=== PATIENT | male | born 1955 | race African-American/Black ===

== ENCOUNTER 2024-09-12 07:16 | Outpatient (CLI) | payer OTHER, SELFPAY ==
--- NOTE | 2024-09-04 13:27 | PC.NURSE ---
Pre Radiology instructions Report to the outpatient won hansen on date 09/12/24 at time _7:30 for procedure Time: 9:30 ____ YOU MAY BE MONITORED AT HOSPITAL FOR UP TO 4 HOURS AFTER YOUR PROCEDURE. A visitor will be allowed to accompany the patient into the hospital. You and your visitor will be asked to self-screen and do not enter if you have any COVID symptoms. A mask is OPTIONAL within the hospital. Patients are to have no food or drink 6 hours prior to procedure time Driving will be restricted after the procedure, you must have a person to drive you home. Labs will be drawn in preop area and once reviewed, you will be taken to radiology area for procedure. When the procedure is completed, you will be taken to outpatient where you will be monitored for several hours. You may have one visitor in this area. Other than holding anti-coagulants, patient may take other medication(s) as scheduled. Prior to your appointment date patients are instructed to hold anti-coagulants after discussing with ordering provider to stop. If unable to discontinue anti-coagulants please notify radiologist. ? No aspirin or warfarin (Coumadin) for 7 days prior to the procedure. ? No clopidogrel (Plavix), ticagrelor (Brilinta), prasugrel (Effient) or dabigatran (Pradaxa) for 5 days prior to the procedure. ? No rivaroxaban (Xarelto), apixaban (Eliquis), dipyridamole (Aggrenox or Persantine) or cilostazol (Pletal) for 2 days prior to the procedure. Medications to discontinue per physician: ____ASPIRIN 7 DAYS____ Date to take last dose: ____09/04/24 Please leave all valuables, including medications, at home the day of procedure. The hospital will not accept responsibility for valuables. Wear comfortable, loose fitting clothing.? Follow any additional instructions given to you from ordering provider. Telephone instructions given to _PATIENT and asked if any additional questions and then verbalized understanding. Patient advised to call scheduling provider office or registration scheduling [phone] if any additional questions.
[2024-09-04 13:46] VITALS: BMI 29.8
--- NOTE | ~2024-09-12 | XR_ITS ---
EXAMINATION: XR_MY2+_CR DATE: 09/12/2024 11:43 INDICATION: Spondylosis. Lumbar puncture acquired for cervical and lumbar CT myelogram. TECHNIQUE: The procedure including the risks and benefits was discussed with the patient. Risks discu ssed included spinal headache, cerebrospinal fluid leak, bleeding, and infection. The patient underst ood the risks and agreed to proceed. A timeout was performed to verify the patient's name, date of , and procedure to be performed. Prior to the procedure lumbar spine CT from 06/26/2016 was revie wed and L2-L3 levels chosen. The skin overlying the lumbar spine was prepped and draped in usual ster ile fashion. Subcutaneous 1% lidocaine was used for local anesthesia. A 22 gauge spinal needle was advanced under fluoroscopic guidance. Crosstable lateral radiograph were also obtained to assess for needle depth. Despite radiographically appropriately positioned within the central canal, no return o f CSF was obtained despite elevation of the bed to 20 degrees. A second attempt was made at the L3-L4 level with needle advancement under fluoroscopic guidance and appropriate depth confirmed with cross table lateral radiographs. With the needle tip at the anterior aspect of the central canal, the needl e was again gradually withdrawn with the head of the bed elevated and again no CSF return was obtaine d. Third and final attempt was made at the L3-L4 level angled slightly more caudally to place the nee dle tip below level of the disc space and again with appropriate needle tip position confirmed on PA fluoroscopic imaging and crosstable lateral radiograph. Once again no CSF return was obtained. In the absence of CSF return the planned contrast injection was deferred and the procedure was canceled at this point. The needle was removed and the entry sites were cleaned and dressed. There were no immed iate complications. Fluoroscopy exposure time was 2.0 minutes. A total of 6 fluoroscopic images and 7 crosstable lateral images were recorded. FINDINGS: Real-time fluoroscopy demonstrates the needle tips projecting over expected positions mid a nterior midline of the central canal at first the L2-L3 level and subsequently at the L3-L4 level. No spontaneous efflux of CSF was able to be obtained at either level and the planned contrast injection for subsequent CT myelogram was deferred. IMPRESSION: 1. Unsuccessful attempted lumbar puncture for planned subsequent CT myelogram. Despite 3 attempts, on e at the L2-L3 level and two at the L3-L4 level, each demonstrating radiographically optimal needle t ip positioning, no spontaneous efflux of CSF was able to be obtained to confirm intrathecal position of the needle tip and the planned contrast injection was deferred. It is unclear whether this is due to severe stenosis at each of these levels would consider obtaining standard lumbar spine CT which mi ght provide insight into a more suitable site for intrathecal injection. Reviewed, dictated and finalized at location A. IMPRESSION: 1. Unsuccessful attempted lumbar puncture for planned subsequent CT myelogram. Despite 3 attempts, one at the L2-L3 level and two at the L3-L4 level, each dem onstrating radiographically optimal needle tip positioning, no spontaneous effl ux of CSF was able to be obtained to confirm intrathecal position of the needle tip and the planned contrast injection was deferred. It is unclear whether thi s is due to severe stenosis at each of these levels would consider obtaining st andard lumbar spine CT which might provide insight into a more suitable site fo r intrathecal injection.
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
--- OUTSIDE RECORDS SUMMARY | 2024-09-12 07:19 | XMS_ITS | Encounter Summary ---
Author Name [facility] [place] [place] Address [address] [place] [address] Care Team Providers Care Dog Obedience Instructor Name Role Phone NANO LEONE Primary Care [...] PART A Aug 26, 1999 PART A [id number] [phone] ROSSI SERRANO RRY PATIENT MEDICARE (WNR) MEDICARE (M) PART A Aug 26, 1999 PART A [id number] ROSSI SERRANO RRChetan PATIENT Selected Encounter This section includes the information on record at [place] for the Encounter. Date/Time Encounter Type Encounter Description Reason Provider Source Oct 04, 2023 01:00 PM THERAPEUTIC EXERCISES PHYSICAL THERAPY ICD-10-CM M70.60 Trochanteric bursitis, unspecified hip BROKOE BONILLA E Encounter Template Text not used by [place] Assessments - Encounter Diagnoses This section includes the primary and secondary diagnoses documented for the Encounter. Date/Time Primary/Secondary Diagnosis Diagnosis Name Provider Source Oct 04, 2023 04:12 PM PRIMARY Trochanteric bursitis, unspecified hip MARCELO BONILLA [facility] Plan of Treatment: Future Appointments (+ 6 months) and Future Tests (+/- 45 days) The Plan of Treatment section includes future care activities for the patient from all [place] [facility]. This section includes future appointments and future orders which are active, pending or scheduled. Future Appointments This section includes appointments that were scheduled to occur 6 months from the date of the Encounter, up to a maximum of 20 appointments. The data comes from all [facility]. Appointment Date/Time Appointment Type Appointme nt Facility Name Oct 05, 2023 02:30 PM AMBULATORY - MEDICINE [facility] Nov 01, 2023 10:00 AM AMBULATORY - REHAB [facility]IC[facility] Jan 25, 2024 09:00 AM AMBULATORY - NONE [facility] Mar 11, 2024 09:30 AM AMBULATORY - MEDICINE [facility] Mar 12, 2024 09:30 AM AMBULATORY - MEDICINE [facility] Encounter Notes: All associated encounter notes This section contains the clinical notes associated to the Encounter. Date/Time Encounter Note(s) Provider Source Oct 04, 2023 12:42 PM PHYSICAL THERAPY C ONSULT: LOCAL TITLE: PT CONSULT STL STANDARD TITLE: PHYSICAL THERAPY CONSULT DATE OF NOTE: OCT 04, 2023@12:42 ENTRY DATE: OCT 04, 2023@12:43:05 AUTHOR: KADE BONILLA COSIGNER: URGENCY: STATUS: COMPLETED PHYSICAL THERAPY EVALUATION -- Order Information To Service: PT OUTPT STL From Service: GWENDOLYN GALAVIZ Requesting Provider: IVA GALAVIZ Service is to be rendered on an OUTPATIENT basis Place: Commutator Undercutter's choice Urgency: Routine Clinically Ind. Date: Sep 04, 2023 DST ID: Orderable Item: PT OUTPT STL Consult: Consult Request Provisional Diagnosis: Trochanteric Bursitis, unspecified Hip(ICD-10-CM M70.60) Start of Care: 10/04/23 Reevaluation due: 11/04/23 POC through: Visits to date: 1 No shows/cancellations: 0 Treatment time: 5341-8545 Total 55 mins. Evaluation: 20 mins. Therapeutic exercise: 35 mins. SUBJECTIVE: hip pain ongoing for >1 year. Patient is L BKA and wears prosthetic, ambulates independently with cane. Uses manual w/c as needed for long distances or when patient is unable to wear prosthetic. Bilateral hips equally painful. --Onset: insidious onset --Pain Increased With: prolonged standing, walking --Pain Decreased With: lidocaine patches, voltarin --Occupation: retired --Pain Rating (0-10) Bilateral hips Current: 0/10 Best 0/10 Worst: 8/10 OBJECTIVE: Assistive Device: cane BLE AROM grossly WFL throughout Strength: Right Left iliopsoas 4/5 4/5 Glut max 3+/5 3+/5 Glut med 4-/5 4-/5 Treatment: Initial Evaluation Therapeutic exercise: Pt was instructed in and demonstrated independence with current HEP x 1 (pt was provided with handouts): 1. L sidelying R hip clamshells with green theraband 2. R sidelying L hip abduction (without prosthesis) 3. Prone L hip extension AROM (without prosthesis) 4. single leg bridge R LE only 5. supine modified piriformis and single knee to chest stretches BLE Educations: -findings of evaluation, POC, goals -activity modification, exercise, weight reduction if overweight and methods to unload arthritic joints. ASSESSMENT: Patient presents to therapy with with c/o bilateral hip pain. Patient referred to PT by lubricating specialist. Pt would benefit from PT to address impairements in LE strength and flexibility with HEP instruction. PT also educated patient on activity modification and rest breaks with use of cold back to manage pain and soreness post-activity. Patient requests to f/u with PT in 1 month after trialing HEP and incorporating recommendations from both ortho specialist and PT. Patient verbalizes understanding of education and recommendations provided this session. Physical Therapy Diagnosis: Force production deficit --Complexity of eval: [x] Low [] Medium [] High -Complexity of eval due to: -Co-morbidities: -Personal Factors: -Examination: -Elements addressed: -Outcome measure: -Clinical Presentation: - [x] Stable and/or Uncomplicated - [] Evolving Clinical Presentation with Changing Clinical Characteristics: - [] Unstable And Unpredictable Characteristics Goals: Short term: (4 weeks) 1) Pt will demonstrate independence with current HEP x 1 2) Pt will verbalize pain at worst 10 --REHABILITATION POTENTIAL: [] POOR - Limited potential for improvement. [] GUARDED - There exists a question of the potential for improvement [] FAIR - Presents with the potential to improve in some areas while other deficits may remain unchanged. [x] GOOD - Presents with the potential to improve to a level of functional independence, though may continue to demonstrate certain minimal limitations with consistent performance of HEP. [] EXCELLENT - Presents with the potential to fully recover with no residual deficits. Plan: Continue skilled PT 1x every 3-4 weeks for education, therapeutic exercise and activity, neuro-muscular re-education, and modalities as needed. /dayan/ KADE BONILLA PHYSICAL THERAPIST Signed: 10/04/2023 16:12 KADE BONILLA [facility]
--- OUTSIDE RECORDS SUMMARY | 2024-09-12 07:20 | XMS_ITS | Clinical Summary ---
Author Organization [facility] Address [address] [place] [address] Care Team Providers Care Geoscience Specialist Name Role Phone Unavailable Primary Care Provider Unavailabl e Source Comments [facility],non-owned Affiliates and Associated Physician Practices is amultiple site organization consisting of ambulatory clinics and hospital sitesin [place], [place], [place] and [place]. This disclosure is being madepursuant to the Care Everywhere program and may not contain all information available regarding this patient. Last updated 17.[facility] Medications * Be aware that medications may not be up to date on this document. Alwaysverify current medications with the patient. raNITIdine (ZANTAC) 150 MG tablet Take 150 mg by mouth BID. 07/29/2016 Active aspirin (ASPIRIN) 81 MG chew tablet Take 81 mg by mouth DAILY. 07/29/2016 Active Social History Tobacco Use Types Packs/Day Years Used Date Smoking Tobacco: Every Day Alcohol Use Standard Drinks/Week Comments No 0 (1 standard drink = 0.6 oz pur e alcohol) Sex and Gender Information Value Date Recorded Sex Assigned at Not on file Legal Sex Male 5:37 PM [employer] Gender Identity Not on file Sexual Orientation Not on file Last Filed Vital Signs Vital Sign Reading Time Taken Comments Blood Pressure 130/111 07/29/2016 6:26 PM CDT Pulse 107 07/29/2016 6:26 PM CDT Temperature 37.2 C (98.9 F) 07/29/2016 6:26 PM CDT Respiratory Rate 20 07/29/2016 6:26 PM CDT Oxygen Saturation 100% 07/29/2016 6:26 PM CDT Inhaled Oxygen Concentration - - Weight 94.8 kg (209 lb) 07/29/2016 6:26 PM CDT Height 180.3 cm (5' 11) 07/29/2016 6:26 PM CDT Body Mass Index 29.15 07/29/2016 6:26 PM CDT Plan of Treatment Health Maintenance Due Date Last Done Comments COLOGUARD (AGES 45-75) - COL ON CA SCREENING 1956 COLON MONITORING 1956 COLONOSCOPY - COLON CA SCREENING 1956 CT COLONOGRAPHY - COLON CA SCREENING 1956 Colorectal Cancer Screening 1956 FIT - COLON CA SCREENING 1956 FLEX SIG - COLON CA SCREENING 1956 LIPID TESTING 1956 HEPATITIS C SCREENING 08/08/1974 DTAP/TDAP/TD VACCINES (1 - Tdap) 08/13/1975 PNEUMOCOCCAL VACCINE 50+ (1 of 1 - PCV) 2006 ZOSTER VACCINE (1 of 2) 2006 AAA SCREENING 2021 COVID-19 VACCINE (1 - 2023-2 5 season) 2023 DEPRESSION SCREENING 03/27/2024 INFLUENZA VACCINE (Season Ended) 2024 Respiratory Syncytial Virus (RSV) Vaccine Pt: or over 60 yrs (1 - 1-dose 75+ series) 08/13/2031 HEPATITIS B VACCINE Aged Out No longe r eligible based on patient's age to complete this topic HIB VACCINE Aged Out No longer eligi ble based on patient's age to complete this topic HPV VACCINE Aged Out No longer eligi ble based on patient's age to complete this topic MENINGOCOCCAL (Group B) VACC INE SHARED DECISION-MAKING Aged Out No longer eligibl e based on patient's age to complete this topic MENINGOCOCCAL GROUPS A/C/Y/W VACCINE Aged Out No longer eligible b ased on patient's age to complete this topic
--- OUTSIDE RECORDS SUMMARY | 2024-09-12 07:20 | XMS_ITS ---
Author Name [facility] [place] Organization [facility] [place] Address [address] [place] [address] Care Team Providers Care Booking Officer Name Role Phone NANO LEONE Primary Care [...] PART A Aug 26, 1999 PART A [id number] ZACHROSSI GAGE PATIENT MEDICARE (WNR) MEDICARE (M) PART A Aug 26, 1999 PART A [id number] ROSSI SERRANO RRSanto PATIENT Selected Encounter This section includes the information on record at MD for the Encounter. Date/Time Encounter Type Encounter Description Reason Provider Source May 03, 2024 01:30 PM OFFICE O/P EST MOD 30 MIN PRIMARY CARE/MEDICINE ICD-10-CM I10 Essential (primary) hypertension LEONE,ARMID A A [facility] Encounter Template Text not used by MD Assessments - Encounter Diagnoses This section includes the primary and secondary diagnoses documented for the Encounter. Date/Time Primary/Secondary Diagnosis Diagnosis Name Provider Source May 03, 2024 04:24 PM PRIMARY Essential (primary) hypertension LEONE,NANO A [facility] May 03, 2024 04:24 PM SECONDARY Encounter for immunization SUNITA HUMMEL [facility] May 03, 2024 04:24 PM SECONDARY Iron deficiency anemia, unspecified LEONENANO Teresa [facility] May 03, 2024 04:24 PM SECONDARY Type 2 diabetes mellitus without complications SULEMANANO A [facility] Plan of Treatment: Future Appointments (+ 6 months) and Future Tests (+/- 45 days) The Plan of Treatment section includes future care activities for the patient [facility] This section includes future appointments and future orders which are active, pending or scheduled. Future Appointments This section includes appointments that were scheduled to occur 6 months from the date of the Encounter, up to a maximum of 20 appointments. The data comes from all [facility]. Appointment Date/Time Appointment Type Appointme nt Facility Name May 15, 2024 11:00 AM AMBULATORY - MEDICINE [facility] May 15, 2024 11:30 AM AMBULATORY - MEDICINE [facility] May 20, 2024 02:00 PM AMBULATORY - MEDICINE [facility] May 23, 2024 02:00 PM AMBULATORY - MEDICINE [facility] Jun 13, 2024 01:15 PM AMBULATORY - MEDICINE [facility] Jun 17, 2024 12:00 PM AMBULATORY - NONE [facility] Jun 21, 2024 11:00 AM AMBULATORY - MEDICINE [facility] Jun 21, 2024 02:00 PM AMBULATORY - MEDICINE [facility] Jun 28, 2024 03:30 PM AMBULATORY - NONE [facility] Jul 11, 2024 01:30 PM AMBULATORY - MEDICINE [facility] August 01, 2024 01:15 PM AMBULATORY - SURGERY [facility] Sep 05, 2024 01:00 PM AMBULATORY - REHAB MEDICIN E [facility] Sep 05, 2024 02:30 PM AMBULATORY - NONE [facility] Sep 09, 2024 01:00 PM AMBULATORY - REHAB MEDICIN E [facility] Sep 11, 2024 11:00 AM AMBULATORY - REHAB MEDICIN E [facility] Sep 12, 2024 07:30 AM AMBULATORY - NONE [facility] Sep 12, 2024 07:40 AM AMBULATORY - NONE [facility] Oct 11, 2024 03:30 PM AMBULATORY - REHAB MEDICIN E [facility] Oct 18, 2024 02:00 PM AMBULATORY - MEDICINE [facility] Oct 25, 2024 03:00 PM [facility] Active, Pending, and Scheduled Orders This section includes a listing of several types of active, pending, and scheduled orders, including clinic medications orders, diagnostic test orders, procedure orders and consult orders; where the start date of the order is 45 days before the date of the Encounter or 45 days after the date of theEncounter. The data comes from all MD treatment facilities. Test Date/Time Test Type Test Details Facility Name May 03, 2024 12:00 AM Laboratory - Chemi ganga Order OCCULT BLOOD FIT X1 SCREEN STOOL FECES SP [facility] Lab Results: +/- 30 days of the encounter This section includes the Chemistry and Hematology Lab Results on record with MD for the patient. Radiology Reports and Pathology Reports are provided separately, in subsequent sections. Lab Results This section contains the Chemistry/Hematology Results that were resulted 30 days before or 30 daysafter the date of the Encounter. Date/Time Source Result Type Result - Unit Interpretation Reference Range Specimen Type Comment May 21, 2024 06:01 PM [facility] FERRITIN SERUM Specimen Type: SERUM Comment: FE Sat Unable to be calculated Ordering Provider: RAHEL MERINO Report Released Date/Time: May 15, 2024 02:28 PM Reporting Lab: [facility] [address] [facility] [address] Performing Lab: [facility] [address] [facility] [address] FERRITIN 1052.99 ng/mL H 22-275 May 21, 2024 06:01 PM [facility] IRON/TIBC PROFILE SERUM Specimen Type: SERUM Comment: FE Sat Unable to be calculated Ordering Provider: RAHEL MERINO Report Released Date/Time: May 15, 2024 02:28 PM Reporting Lab: [facility] [address] [place] [id number] Performing Lab: [address] [address] TIBC 309 ug/dL 250-450 TRANSFERRIN 247 mg/dL 163-344 IRON SATURATION 45 20-50 IRON 139 ug/dL 65-175 May 21, 2024 06:01 PM [facility] CBC BLOOD Specimen Type: BLOOD No comment entered. Ordering Provider: RAHEL MERINO Report Released Date/Time: May 15, 2024 02:28 PM Reporting Lab: [address] [address] Performing Lab: [address] [address] WBC 7.7 10*3/uL 3.6-11.2 RBC 4.18 10*6/uL 4.10-5.70 HGB 8.9 g/dL L 13.1-16.8 HCT 31.9 L 38.2-48.4 MCV 76.3 fL L 80.0-100.0 MCH 21.3 pg L 27.0-34.0 MCHC 27.9 g/dL L 33.0-36.0 PLT 403 10*3/uL H 150-400 MPV 10.1 fL 7.5-11.2 RDW 21.2 H 11.8-15.1 ANISOCYTOSIS 2+ POIKILOCYTOSIS 1+ MACROCYTOSIS 1+ POLYCHROMASIA 1+ HYPOCHROMIA 1+ SCHISTOCYTES 1+ PAPPENHEIMER BODIES 0 LYMPHOCYTES, AUTO % 17 MONOCYTES, AUTO % 11 NEUTROPHILS, AUTO % 70 EOSINOPHILS, AUTO % 1 BASOPHILS, AUTO % 0 LYMPHOCYTES, ABSOLUTE 1.31 10*3/uL 0.77- 4.50 MONOCYTES, ABSOLUTE 0.82 10*3/uL H 0.19-0. 80 NEUTROPHILS, ABSOLUTE 5.40 10*3/uL 2.10- 8.00 EOSINOPHILS, ABSOLUTE 0.09 10*3/uL 0.00- 0.60 BASOPHILS, ABSOLUTE 0.03 10*3/uL 0.00-0. 20 OVALOCYTES 1+ TEARDROPS 1+ PLT EST-CV ADEQUATE ADEQUATE SCRNPERF YES May 21, 2024 12:08 PM [facility] H.PYLORI AG (STL) FECES Specimen Type: FECES No comment entered. Ordering Provider: ANASTASIA SLOAN Report Released Date/Time: May 20, 2024 02:26 PM Reporting Lab: [facility] [address] [facility] [address] Performing Lab: [address] [address] H.PYLORI AG (STL) NEGATIVE NEGATIVE May 15, 2024 11:18 AM [facility] FERRITIN SERUM Specimen Type: SERUM No comment entered. Ordering Provider: RAHEL MERINO Report Released Date/Time: May 15, 2024 08:31 AM Reporting Lab: [place] [address] [facility] [address] Performing Lab: [address] [address] FERRITIN 9.59 ng/mL L 22-275 May 15, 2024 11:18 AM [facility] IRON/TIBC PROFILE SERUM Specimen Type: SERUM No comment entered. Ordering Provider: RAHEL MERINO Report Released Date/Time: May 15, 2024 08:31 AM Reporting Lab: [address] [address] Performing Lab: [address] [address] TIBC 368 ug/dL 250-450 TRANSFERRIN 294 mg/dL 163-344 IRON SATURATION 6 L 20-50 IRON 22 ug/dL L 65-175 May 15, 2024 11:18 AM [facility] CBC BLOOD Specimen Type: BLOOD No comment entered. Ordering Provider: RAHEL MERINO Report Released Date/Time: May 15, 2024 08:31 AM Reporting Lab: [facility] [address] [facility] [address] Performing Lab: [facility] [address] [place] [phone] WBC 8.4 10*3/uL 3.6-11.2 RBC 4.12 10*6/uL 4.10-5.70 HGB 8.6 g/dL L 13.1-16.8 HCT 30.7 L 38.2-48.4 MCV 74.5 fL L 80.0-100.0 MCH 20.9 pg L 27.0-34.0 MCHC 28.0 g/dL L 33.0-36.0 PLT 424 10*3/uL H 150-400 MPV 9.8 fL 7.5-11.2 RDW 18.5 H 11.8-15.1 NEUTROPHILS 72.2 MONOCYTES 4.3 EOSINOPHILS 0.9 BASOPHILS 0.9 ANISOCYTOSIS 1+ POIKILOCYTOSIS 1+ POLYCHROMASIA 1+ SCHISTOCYTES 1+ PAPPENHEIMER BODIES 0 LYMPHOCYTES 19.1 ATYPICAL LYMPHOCYTES 2.6 OVALOCYTES 1+ PLT EST-CV INCREASED ADEQUATE BASO#-MDIFF 0.08 10*3/uL 0.01-0.20 EO#-MDIFF 0.08 10*3/uL 0.00-0.60 MONO#-MDIFF 0.36 10*3/uL 0.19-0.80 LYMPH#-MDIFF 1.82 10*3/uL 0.77-4.50 NEUT#-MDIFF 6.06 10*3/uL 2.10-8.00 May 03, 2024 01:36 PM [facility] GLUCOSE,BLOOD-poct (STL) BLOOD Specimen Type: BLOOD Comment: Test Performed by: [id number] Meter #: [id number] Ordering Provider: NANO LEONE Report Released Date/Time: May 03, 2024 03:43 PM Reporting Lab: [place] [id number] [facility] [address] Performing Lab: [address] [address] GLUCOSE,BLOOD-poct (STL) 97 mg/dL 72-99 Vital Signs: All taken on the encounter date This section contains inpatient and outpatient Vital Signs collected on the date of the Encounter. Date/Time Temperature Pulse Blood Pressure Respiratory Rate SP02 Pain Height Weight Body Mass Index Source May 03, 2024 01:33 PM 98.2 86 137/68 18 95 8 219 31 [facility] Immunizations: All administered on the encounter date This section contains immunizations associated to the Encounter. Immunization Series Date Issued Administered By Site Reaction Lot Number CVX Code Drug Legal Department Manager Comment(s) Source COVID-19 (Weavly), MRNA, LNP-S, PF, RODOLFO-SUCROSE, 30 MCG/0.3 ML (AGES 12+ YEARS) May 03, 2024 ARAVIND HUMMEL S RIGHT DELTO ID [id number] [employer], INC ADMINISTERE D AT [facility] INFLUENZA, HIGH-DOSE, TRIVALENT, PF May 03, 2024 ARAVIND HUMMEL RIGHT DELTO ID [id number] SANOFI PASTEUR ADMINISTERE D AT [facility] Social History: Smoking Status (Most current) and Tobacco Use (All prior to encounter date) This section includes the most current, and the historical, smoking and tobacco- related health factors from the MD facility where the Encounter took place. Current Smoking Status This section includes the most current smoking, or tobacco-related health factor, from the MD facility where the Encounter took place. Date/Time Current Smoking Status Comment Cari itsanto May 03, 2024 01:30 PM VA-TOBACCO USE FOR MYCHAL CIGARETTES [facility] Tobacco Use History This section includes a history of the smoking, or tobacco-related health factors, that were collected on or before the date of the Encounter. The data comes from the MD facility where the Encounter took place. Date/Time Smoking Status/Tobacco Use Comment F acility May 03, 2024 01:30 PM VA-TOBACCO USE FOR MYCHAL CIGARETTES [facility] Jan 05, 2023 02:30 PM VA-TOBACCO FORMER USER [facility] Jan 05, 2023 02:30 PM VA-TOBACCO QUIT 15 YRS OR MORE [facility] Nov 03, 2021 09:00 AM VA-TOBACCO FORMER USER [facility] Nov 03, 2021 09:00 AM VA-TOBACCO QUIT 15 YRS OR MORE [facility] Oct 19, 2020 11:30 AM VA-TOBACCO FORMER USER [facility] Oct 19, 2020 11:30 AM VA-TOBACCO QUIT 15 YRS OR MORE [facility] Jan 09, 2019 11:37 AM VA-TOBACCO FORMER USER [facility] Jan 09, 2019 11:37 AM VA-TOBACCO QUIT 5 TO < 15 YRS [facility] Jan 10, 2017 09:53 AM QUIT TOBACCO >12 M O & <7 YRS AGO [facility] Sep 28, 2016 08:46 AM QUIT TOBACCO >12 M O & <7 YRS AGO [facility] Aug 29, 2016 09:07 AM QUIT TOBACCO >12 M O & <7 YRS AGO [facility] Nov 19, 2015 10:54 AM QUIT TOBACCO >12 M O & <7 YRS AGO [facility] Nov 24, 2014 02:40 PM QUIT TOBACCO >12 M O & <7 YRS AGO [facility] Nov 14, 2013 10:11 AM QUIT TOBACCO >7 YEARS AGO [facility] Encounter Notes: All associated encounter notes This section contains the clinical notes associated to the Encounter. Date/Time Encounter Note(s) Provider Source May 03, 2024 01:45 PM PRIMARY CARE NOTE: LOCAL TITLE: PRIMARY CARE PROVIDER ESTABLISHED VISIT [facility] STANDARD TITLE: PRIMARY CARE NOTE DATE OF NOTE: MAY 03, 2024@13:45 ENTRY DATE: MAY 03, 2024@13:45:22 AUTHOR: NANO LEONE COSIGNER: URGENCY: STATUS: COMPLETED ESTABLISHED PATIENT [id number]: REASON FOR VISIT/CHIEF COMPLAINT: f/u DM, HTN, HLD, hx of SBO, adrenal adenoma, gerd, insomnia, LBP and neck pain and hx left BKA, ED, hip pain HPI:reports bilateral shoulder pain worse when he lays down on that side. LBP and right hip pain,worse with proloned standing and walking, better with rest. has altered gait due to LLE prosthetic limb, denies loss of bowel and bladder control. will try PT for core strengthening and switch celebrex to etodolac. Reports well controlled DM Denies any hypoglycemic episodes. Has numbness of foot, denies any open areas. denies cp, sob, palpitations denies BP issues. denies falls. will try low dose gabapentin TID prn . SOURCE(S) OF HISTORY: Patient PAST MEDICAL HISTORY: 1) Diabetes mellitus (SCT 20162256) - Diabetes mellitus without mention of complica 2) Benign essential hypertension (SCT 5486029) - Benign essential hypertension (ICD 3) Hyperlipidemia (SCT 86565181) - Other and unspecified hyperlipidemia (ICD-9- CM 2 comment: and repair of incisional hernia. 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 Extensive lysis of adhesions greater th 14) Hypokalemia 15) Adenoma comment: benign adrenal adenoma ( saw endo and DC to PCP) 16) Gastroesophageal reflux disease 17) Insomnia 18) Acquired pes planus 19) Erectile Dysfunction (SCT [id number]) 20) Exposure to potentially hazardous substance 21) Trochanteric bursitis of right hip 22) Trochanteric bursitis of left hip 23) Obesity FAMILY HISTORY: No new updates. SOCIAL HISTORY: NICOTINE: Nicotine User: No ILLICIT DRUGS: No ETOH: denies ALLERGIES: Patient has answered NKA ALLERGY REVIEW: Allergy list reviewed and remains current. MEDICATION RECONCILIATION: I have reviewed the patient's medication list with the patient and/or his/her care-press operator meat. Handwritten corrections, additions and/or deletions were made to the list. Corrected Outpatient Medication List was provided to the patient/caregiver. Active Outpatient Medications (including Supplies): Active Outpatient Medications Status 1) AMLODIPINE BESYLATE 10MG TAB TAKE ONE TABLET BY MOUTH ONCE A ACTIVE (S) DAY FOR HEART/BLOOD PRESSURE Indication: FOR HIGH BLOOD PRESSURE 2) ASPIRIN 81MG EC TAB TAKE ONE TABLET BY MOUTH ONCE A DAY ACTIVE (S) TAKE WITH FOOD. Indication: FOR CARDIOVASCULAR DISEASE 3) CHOLECALCIF 50MCG (D3-2,000UNIT) TAB TAKE ONE TABLET BY ACTIVE (S) MOUTH ONCE A DAY FOR VITAMIN D DEFICIENCY. 4) DICLOFENAC NA 1% TOP GEL APPLY 4 GM TO AFFECTED AREA(S) FOUR ACTIVE TIMES A DAY DO NOT EXCEED MORE THAN 16 GRAMS DAILY TO ANY LOWER EXTREMITY JOINT. NOT MORE THAN 8 GRAMS DAILY TO ANY UPPER EXTREMITY JOINT. MAX 32GM/DAY OVER ALL JOINTS. (MEASURE DOSE WITH RULER ATTACHED INSIDE BOX) Indication: FOR PAIN 5) HYDROCHLOROTHIAZIDE 25MG TAB TAKE ONE TABLET BY MOUTH ONCE A ACTIVE DAY Indication: FOR HIGH BLOOD PRESSURE 6) METFORMIN HCL 1000MG TAB TAKE ONE-HALF TABLET BY MOUTH TWICE ACTIVE A DAY WITH MEALS FOR BLOOD SUGAR CONTROL. TAKE WITH FOOD. AVOID ALCOHOL. DISCONTINUE BEFORE GETTING XRAY DYE. 7) METHOCARBAMOL 750MG TAB TAKE 1-2 TABLETS BY MOUTH FOUR TIMES ACTIVE A DAY NEEDED FOR MUSCLE RELAXANT 8) PANTOPRAZOLE NA 40MG EC TAB TAKE ONE TABLET BY MOUTH TWICE A ACTIVE (S) DAY TAKE 30 MINUTES BEFORE MEAL(S) Indication: FOR GASTROESOPHAGEAL REFLUX DISEASE 9) POTASSIUM CL 20MEQ SA TAB (DISPERSIBLE) TAKE ONE TABLET BY ACTIVE MOUTH TWICE A DAY FOR POTASSIUM SUPPLEMENTATION TAKE WITH FOOD 10) TADALAFIL 10MG TAB TAKE ONE TABLET BY MOUTH EVERY WEEK ACTIVE (S) NEEDED (TAKE 30 MINUTES PRIOR TO SEXUAL ACTIVITY) - LIMIT 6 DOSES PER 30 DAYS Indication: FOR ERECTILE DYSFUNCTION 11) TRAZODONE HCL 100MG TAB TAKE THREE TABLETS BY MOUTH AT ACTIVE BEDTIME Indication: FOR INSOMNIA REVIEW OF SYSTEMS: General: Normal No Fevers, Chills, Weight Loss, Weight Gain, Recent Illness. Ears, Nose, Mouth, Throat: Normal No new loss of hearing or tinnitus, no Dental issue, Difficulty swallowing, Vertigo. Eye: Normal No Trauma, Cataracts, Glaucoma, Blurred vision Cardiovascular: Normal No Chest pain, Dizziness, Palpitations. Respiratory: Normal No Cough, SOB, Hemoptysis, Epistaxis, Influenza symptoms, +PDD. PHYSICAL EXAMINATION: General appearance: VITALS (most recent, as listed in the electronic record): B/P: 137/68 (05/03/2024 13:33) Pulse: 86 (05/03/2024 13:33) Temperature: 98.2 F [36.8 C] (05/03/2024 13:33) Weight: 219 lb [99.34 kg] (05/03/2024 13:33) Height: 71 in [180.3 cm] (10/05/2023 14:26) BMI: 30.6 Pain: 8 (05/03/2024 13:33) (0-10 scale) General: pleasant, cooperative, well-developed, obese appropriately dressed and groomed ; in no acute distress. Ears, Nose, Mouth, Throat:NC/AT , MMm , neg spurling Eye:PERRL Cardiovascular:RRR, No m/r/g or clicks. Respiratory:Clear to auscultation bilaterally. No accessory muscle use. Respirations even and non-labored ABD/GI:soft, non-tender. BS + x 4. /IMMUNOCHEMIST: Deferred Lymph: No lymphadenopathy Extremities:LLE prosthetic limb, bilateral shoulders +scarf and empty can test, [ain with overhead ROM Psych:Affect appropriate. Neuro: Oriented x3. Gait steady with normal stride. Hematology: Color good. No pallor. No ecchymosis or petechiae. Skin:No visualized abnormalities. DATA REVIEW: SLT - Lab Tests Selected Collection DT Specimen Test Name Result Units Ref Range 03/13/2024 12:55 BLOOD HGA1C 6.3 H % 4.0 - 6.0 07/26/2023 14:08 BLOOD HGA1C 6.2 H % 4.0 - 6.0 07/06/2022 10:39 BLOOD HGA1C 6.3 H % 4.0 - 6.0 = TRIGLYCERIDE 91 mg/dL 03/13/2024 12:55 CHOLESTEROL 203 H mg/dL 03/13/2024 12:55 HDL(New) 44 mg/dL 03/13/2024 12:55 CALCULATED LDL 141 mg/dL 03/13/2024 12:55 = SODIUM 140 mEq/L 03/13/2024 12:55 POTASSIUM 4.8 mEq/L 03/13/2024 12:55 CHLORIDE 105 mEq/L 03/13/2024 12:55 UREA NITROGEN 15.0 mg/dL 03/13/2024 12:55 CREATININE 0.98 mg/dL 03/13/2024 12:55 CALCIUM 9.5 mg/dL 03/13/2024 12:55 PROTEIN 7.8 g/dL 03/13/2024 12:55 ALBUMIN 4.4 g/dL 03/13/2024 12:55 ALKALINE PHOSPHATASE 108 U/L 03/13/2024 12:55 ALT/SGPT 8 U/L 03/13/2024 12:55 AST/SGOT 17 U/L 03/13/2024 12:55 TOTAL BILIRUBIN 0.3 mg/dL 03/13/2024 12:55 CARBON DIOXIDE 25 mEq/L 03/13/2024 12:55 GLUCOSE 91 mg/dL 03/13/2024 12:55 EGFR (CKD-EPI 2020) 84.5 03/13/2024 12:55 = WBC 6.0 10*3/uL 03/13/2024 12:55 RBC 4.33 10*6/uL 03/13/2024 12:55 HGB 9.1 L g/dL 03/13/2024 12:55 HCT 32.0 L % 03/13/2024 12:55 MCV 73.9 L fL 03/13/2024 12:55 MCH 21.0 L pg 03/13/2024 12:55 MCHC 28.4 L g/dL 03/13/2024 12:55 RDW 18.7 H % 03/13/2024 12:55 PLT 351 10*3/uL 03/13/2024 12:55 MPV 9.6 fL 03/13/2024 12:55 NEUTROPHILS, AUTO % 69 % 03/13/2024 12:55 LYMPHOCYTES, AUTO % 19 % 03/13/2024 12:55 MONOCYTES, AUTO % 11 % 03/13/2024 12:55 EOSINOPHILS, AUTO % 1 % 03/13/2024 12:55 BASOPHILS, AUTO % 0 % 03/13/2024 12:55 NEUTROPHILS, ABSOLUTE 4.11 10*3/uL 03/13/2024 12:55 LYMPHOCYTES, ABSOLUTE 1.11 10*3/uL 03/13/2024 12:55 MONOCYTES, ABSOLUTE 0.66 10*3/uL 03/13/2024 12:55 EOSINOPHILS, ABSOLUTE 0.07 10*3/uL 03/13/2024 12:55 BASOPHILS, ABSOLUTE 0.02 10*3/uL 03/13/2024 12:55 = PROST. SPECIFIC AG.(PB-STL) 3.320 ng/mL 07/26/2023 14:08 PROST. SPECIFIC AG.(PB-STL) 1.996 ng/mL 07/06/2022 10:39 PROST. SPECIFIC AG.(PB-STL) 1.609 ng/mL 08/09/2021 08:55 PROST. SPECIFIC AG.(PB-STL) 1.144 ng/mL 07/04/2020 11:06 PROST. SPECIFIC AG.(PB-STL) 0.726 ng/mL 08/01/2019 10:28 = TSH 0.653 uIU/mL 03/13/2024 12:55 = URIC ACID: Collection DT Specimen Test Name Result Units Ref Range 03/13/2024 12:55 PLASMA URIC ACID 6.6 mg/dL 3.5 - 7.2 Comment: No hemolysis noted. = B12 267 pg/mL 03/13/2024 12:55 = VITAMIN D, 25-HYDROXY 59.0 ng/mL 03/13/2024 12:55 = INR: No INR EO data found = No URINALYSIS EO data found = Urine Microalbumin: CREATuF: 141.5 (07/25/ 14:08) M/CREAT: 5 (07/26/23 14:08) MICRAL: 7.3 (07/26/23 14:08) = CREATININE URINE/OTHERS 141.5 mg/dL 07/26/2023 14:08 = Dilantin: ____ = Digoxin: No data available for: DIGOXIN = Chest x-ray: No data available for: CHEST 2 VIEWS PA&LAT = EKG: No data available for: EKG CONSULT STL EKG CONSULTS PB EKG RESULTS MA Result: Acceptable Follow-up Action: Data results reviewed with patient and/or caregiver. ASSESSMENT/PLAN: anger/irritability- recommend [facility] visit. 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 recommend PT, declined by pt. switch celebrex to etodola with food, monitor anemia- cont otc fe supplement. noted progressive decrease of H/H. heme consult and GI consult. overdue for scope cervicalgia with radiculopathy, better, cont stretching exercises. switch celebrex to etodolac with food. try low dose gabapebtib for pain. cont otc apap prn for pain.recommend PT, deferred by pt, imaging ordered. monitor DM stable cpm HTN controlled. cpm RETURN TO CLINIC:6-9 mo Return to Clinic order placed SUMMARY STATEMENT: Plan of care has been discussed with including expected therapeutic benefits and potential side effects of prescribed medication and treatments. verbalizes understanding and is in agreement with the plan of care. Patient was instructed to keep all scheduled appointments and contact cnp for any additional problems. PREVENTION & SCREENING: ALCOHOL: Clinical Reminder not due now or within a month BLOOD PRESSURE: Clinical Reminder not due now or within a month HEMOGLOBIN A1C: Clinical Reminder not due now or within a month /es/ NANO LEONE MD Signed: 05/14/2024 10:36 NANO LEONE [facility] May 03, 2024 01:37 PM NURSING NOTE: LOCAL TITLE: V15 PACT FACE TO FACE NOTE STL STANDARD TITLE: NURSING NOTE DATE OF NOTE: MAY 03, 2024@13:37 ENTRY DATE: MAY 03, 2024@13:37:17 AUTHOR: YELENA HUMMEL COSIGNER: URGENCY: STATUS: COMPLETED Provider Visit: Patient Identifiers : Full Name Date of Reason for visit: Established Follow-Up Mode of Arrival: Ambulatory Allergy Review: Patient has answered NKA Allergy list reviewed and remains current. Recent Vital Signs: Temperature: 98.2 F [36.8 C] (05/03/2024 13:33) Pulse: 86 (05/03/2024 13:33) Respiration: 18 (05/03/2024 13:33) B/P: 137/68 (05/03/2024 13:33) Pain: 8 (05/03/2024 13:33) Wt: 219 lb [99.34 kg] (05/03/2024 13:33) Ht: 71 in [180.3 cm] (10/05/2023 14:26) BMI: 30.6 POX: 95% (05/03/2024 13:33) Blood sugar glucometer readin PERSONAL HEALTH INVENTORY Notes: No data available for PHI note titles PERSONAL HEALTH INVENTORY - MAP: No data available for PHI MAP What matters most to you in your life right now? Mcgregor's Response: ME Would you like to discuss any personal problem, family problem, alcohol use, drug use, or a mental or emotional illness? No [facility] ([facility]), please select appointment type: Face to face: No-please briefly review benefits and direct Mcgregor to [facility] to get more information and register if interested. Contact provided Primary Care phone number and encouraged to call if any questions or concerns. Review that after hours nurse line [phone] and emergency room are available 17/10 for patient use. Contact verbalized good understanding. Sexual Orientation - CP,L,N,P,PH,PS,S,U: The patient thinks of their sexual orientation as: Straight or Heterosexual COVID-19 Immunization - L,N,P,PH,U: Additional Information: CDC Interim Clinical Considerations for Use of COVID-19 Vaccines in [facility] COVID-19 Vaccine SharePoint Pfizer Monovalent (Comirnaty) Administered: COVID-19 (PFIZER), MRNA, LNP-S, PF, RODOLFO-SUCROSE, 30 MCG/0.3 ML (AGES 12+ YEARS) Date Administered: May 03, 2024 13:30 Legal Department Manager: [employer] Lot: [id number] Exp Date: Jul 01, 2024 [facility]: [id number] Admin Route/Site: INTRAMUSCULAR/RIGHT DELTOID Dosage: 0.3mL Vaccine Information Statement(s): COVID-19 MRNA VACCINE (12+ YRS) VIS Jan 11, 2024 (VIET[place]ESE) Order By: Policy Administered By: Yelena Hummel Vaccine administered without complications. Alcohol Use Screen (AUDIT-C) - V: Alcohol Screen: SCREEN FOR ALCOHOL (AUDIT-C) An alcohol screening test (AUDIT-C) was negative (score=0). 1. How often did you have a drink containing alcohol in the past year? Consider a drink to be a 12 ounce can or bottle of regular beer, 8 ounces of malt liquor, a 5 ounce glass of table wine, or a 1.5 ounce shot of liquor (like scotch, gin, or vodka). Never 2. How many drinks containing alcohol did you have on a typical day when you were drinking in the past year? Response not required due to responses to other questions. 3. How often did you have six or more drinks on one occasion in the past year? Response not required due to responses to other questions. Depression Screening - V: Perform PHQ-2 A PHQ-2 screen was performed. The score was 4 which is a positive screen for depression. Over the past two weeks, how often have you been bothered by the following problems? 1. Little interest or pleasure in doing things More than half the days 2. Feeling down, depressed, or hopeless More than half the days Licensed Independent Provider notified of positive screen and need for follow-up. Name of provider notified: DR LEONE Homelessness/Food Insecurity Screen - DI,L,N,P,PH,PS,S,U: In the past 2 months, have you been living in stable housing that you own, rent, or stay in as part of a household? Yes - Living in stable housing. Are you worried or concerned that in the next 2 months you may NOT have stable housing that you own, rent, or stay in as part of a household? No - Not worried about housing near future The reports the following: Within the past 12 months, you worried whether your food would run out before you got money to buy more. Never true Within the past 12 months, the food you bought just didn't last and you didn't have money to get more. Never true Influenza Immunization - L,N,P,PH,U: Influenza, High-Dose, Trivalent, Preservative Free (Fluzone-Syringe) Administered: INFLUENZA, HIGH-DOSE, TRIVALENT, PF Date Administered: May 03, 2024 13:30 Legal Department Manager: SANOFI PA[employer] Lot: [id number] Exp Date: Sep 23, 2024 [facility]: [id number] Admin Route/Site: INTRAMUSCULAR/RIGHT DELTOID Dosage: 0.5mL Vaccine Information Statement(s): INFLUENZA(FLU) VACC(INACTIVATED OR RECOMBINANT)VIS Oct 30, 2020 (VIET[place]ESE) Order By: Policy Administered By: Yelena Hummel The Influenza Vaccine Information Statement (VIS) was reviewed with the patient/caregiver which lists the benefits and risks of the vaccine and the risks of not receiving the Influenza vaccine. The patient/caregiver denied any prior severe reaction to this vaccine or its components or a severe allergic reaction, such as anaphylaxis, to any vaccine or any injectable therapy. The patient/caregiver gave verbal consent to receive the vaccine. Tobacco Use Screening - AT,DE,L,M,N,P,PH,PS,RT,S,U: The patient is a former cigarette smoker. The patient has never used other types of tobacco. Learning Assessment: - * This patient's learning ABILITIES, BARRIERS to learning, CULTURAL and CATHOLIC beliefs, and learning PREFERENCES were assessed. Following are findings of note: Patient reads well. LANGUAGE Patient reports that Greenlandic is preferred language for healthcare. 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 Patient reports learning preference is attending one-to-one or group demonstrations. Patient reports learning preference is looking at pictures or viewing videos. Pneumococcal Conjugate Vaccine (PCV15/PCV20) - L,N,P,PH,U: Refuses PCV vaccine Immunization: PNEUMOCOCCAL CONJUGATE, UNSPECIFIED FORMULATION Refusal Reason: PATIENT DECISION Patient refuses all immunization(s) in the PneumoPCV group Date Documented: 05/03/24 13:47 /dayan/ YELENA HUMMEL LICENSED PRACTICAL NURSE Signed: 05/03/2024 13:48 YELENA HUMMEL [facility]
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
--- OUTSIDE RECORDS SUMMARY | 2024-09-12 07:20 | XMS_ITS | Encounter Summary ---
Author Name [facility] Organization [facility] Address [address] [place] [address] Care Team Providers Care Wrapper Layer Name Role Phone NANO FERGUSON Primary Care [...] PART A Aug 26, 1999 PART A [id number] [phone] ROSSI RAMON RRY PATIENT MEDICARE (WNR) MEDICARE (M) PART A Aug 26, 1999 PART A [id number] ROSSI RAMON RRY PATIENT Selected Encounter This section includes the information on record at [place] for the Encounter. Date/Time Encounter Type Encounter Description Reason Provider Source Jun 13, 2024 01:15 PM OFFICE O/P EST LOW 20 MIN GI ENDOSCOPY ICD-10-CM D50.9 Iron deficiency anemia, unspecified KALIA MARTINEZ IHE Encounter Template Text not used by [place] Assessments - Encounter Diagnoses This section includes the primary and secondary diagnoses documented for the Encounter. Date/Time Primary/Secondary Diagnosis Diagnosis Name Provider Source Jun 13, 2024 08:56 AM PRIMARY Iron deficiency anemia, unspecified KALIA MARTINEZ [facility] Jun 13, 2024 08:56 AM SECONDARY Angiodysplasia of stomach and duodenum without bleeding MICHELLEEDNIMISHARenée Malick [facility] Jun 13, 2024 08:56 AM SECONDARY Dvrtclos of lg int w/o perforation or abscess w/o bleeding KALAI MARTINEZ [facility] Jun 13, 2024 08:56 AM SECONDARY Gastro-esophageal reflux disease without esophagitis KALIA MARTINEZ [facility] Plan of Treatment: Future Appointments (+ 6 months) and Future Tests (+/- 45 days) The Plan of Treatment section includes future care activities for the patient from all [facility]. This section includes future appointments and future orders which are active, pending or scheduled. Future Appointments This section includes appointments that were scheduled to occur 6 months from the date of the Encounter, up to a maximum of 20 appointments. The data comes from all [facility]. Appointment Date/Time Appointment Type Appointme nt Facility Name Jun 17, 2024 12:00 PM AMBULATORY - NONE [facility] Jun 21, 2024 11:00 AM AMBULATORY - MEDICINE [facility] Jun 21, 2024 02:00 PM AMBULATORY - MEDICINE [facility] Jun 28, 2024 03:30 PM AMBULATORY - NONE [facility] Jul 11, 2024 01:30 PM AMBULATORY - MEDICINE [facility] August 01, 2024 01:15 PM AMBULATORY - SURGERY [facility] Sep 05, 2024 01:00 PM AMBULATORY - REHAB MEDICIN E [facility] Sep 05, 2024 02:30 PM AMBULATORY - NONE [facility] Sep 09, 2024 01:00 PM AMBULATORY - REHAB MEDICIN E [facility] Sep 11, 2024 11:00 AM AMBULATORY - REHAB MEDICIN E [facility] Sep 12, 2024 07:30 AM AMBULATORY - NONE [facility] Sep 12, 2024 07:40 AM AMBULATORY - NONE [facility] Oct 11, 2024 03:30 PM AMBULATORY - REHAB MEDICIN E [facility] Oct 18, 2024 02:00 PM AMBULATORY - MEDICINE [facility] Oct 25, 2024 03:00 [facility] Oct 31, 2024 02:00 PM AMBULATORY - MEDICINE [facility] Active, Pending, and Scheduled Orders This section includes a listing of several types of active, pending, and scheduled orders, including clinic medications orders, diagnostic test orders, procedure orders and consult orders; where the start date of the order is 45 days before the date of the Encounter or 45 days after the date of theEncounter. The data comes from all [place] treatment facilities. Test Date/Time Test Type Test Details Facility Name May 03, 2024 12:00 AM Laboratory - Chemi stry Order OCCULT BLOOD FIT X1 SCREEN STOOL FECES SP [facility] Lab Results: +/- 30 days of the encounter This section includes the Chemistry and Hematology Lab Results on record with [facility] for the patient. Radiology Reports and Pathology Reports are provided separately, in subsequent sections. Lab Results This section contains the Chemistry/Hematology Results that were resulted 30 days before or 30 daysafter the date of the Encounter. Date/Time Source Result Type Result - Unit Interpretation Reference Range Specimen Type Comment Jun 28, 2024 02:04 PM [facility] CELIAC DISEASE PANEL (STL-MRN) SERUM Specimen Type: [...] = 15.0 Antibody detected Test Performed by Patient [employer], [employer] [facility], [address] [place] [address] Luca Guerra M.D., Ph.D., Director of Laboratories , CLIA [id number] Ordering Provider: ANASTASIA SLOAN Report Released Date/Time: May 20, 2024 02:26 PM Reporting Lab: [facility] [address] [facility] [address] Performing Lab: [facility] [address] [facility] IMMUNOGLOBULIN A (PB-MA) 230 mg/dL 70-32 0 TTG-IGA <1.0 SEE BELOW Jun 28, 2024 02:03 PM [facility] FERRITIN SERUM Specimen Type: SERUM No comment entered. Ordering Provider: RAHEL MERINO Report Released Date/Time: Jun 21, 2024 03:32 PM Reporting Lab: [address] [address] Performing Lab: [address] [address] FERRITIN 41.05 ng/mL 22-275 Jun 28, 2024 02:03 PM [facility] IRON/TIBC PROFILE SERUM Specimen Type: SERUM No comment entered. Ordering Provider: RAHEL MERINO Report Released Date/Time: Jun 21, 2024 03:32 PM Reporting Lab: [address] [address] Performing Lab: [address] [address] TIBC 303 ug/dL 250-450 TRANSFERRIN 242 mg/dL 163-344 IRON SATURATION 19 L 20-50 IRON 56 ug/dL L 65-175 Jun 28, 2024 02:03 PM [facility] CBC BLOOD Specimen Type: BLOOD No comment entered. Ordering Provider: RAHEL MERINO Report Released Date/Time: Jun 21, 2024 03:32 PM Reporting Lab: [address] [address] Performing Lab: [address] [address] WBC 7.7 10*3/uL 3.6-11.2 RBC 4.95 10*6/uL [...] 0.00-0. 20 Jun 13, 2024 07:34 AM [facility] GLUCOSE,BLOOD-poct (STL) BLOOD Specimen Type: BLOOD Comment: Test Performed by: [id number] Meter #: [id number] Ordering Provider: TAWANDA MARTINEZ Report Released Date/Time: Jun 13, 2024 07:37 AM Reporting Lab: [address] [address] Performing Lab: [address] [address] GLUCOSE,BLOOD-poct (STL) 95 mg/dL 72-99 May 21, 2024 06:01 PM [facility] FERRITIN SERUM Specimen Type: SERUM Comment: FE Sat Unable to be calculated Ordering Provider: RAHEL MERINO Report Released Date/Time: May 15, 2024 02:28 PM Reporting Lab: [address] [address] Performing Lab: [address] [address] FERRITIN 1052.99 ng/mL H 22-275 May 21, 2024 06:01 PM [facility] IRON/TIBC PROFILE SERUM Specimen Type: SERUM Comment: FE Sat Unable to be calculated Ordering Provider: RAHEL MERINO Report Released Date/Time: May 15, 2024 02:28 PM Reporting Lab: [address] [address] Performing Lab: [address] [address] TIBC 309 ug/dL 250-450 TRANSFERRIN 247 mg/dL 163-344 IRON SATURATION 45 20-50 IRON 139 ug/dL 65-175 May 21, 2024 06:01 PM [facility] CBC BLOOD Specimen Type: BLOOD No comment entered. Ordering Provider: RAHEL MERINO Report Released Date/Time: May 15, 2024 02:28 PM Reporting Lab: [address] [address] Performing Lab: [address] [address] WBC 7.7 10*3/uL 3.6-11.2 RBC 4.18 10*6/uL [...] SCRNPERF YES May 21, 2024 12:08 PM [facility] H.PYLORI AG (STL) FECES Specimen Type: FECES No comment entered. Ordering Provider: ANASTASIA SLOAN Report Released Date/Time: May 20, 2024 02:26 PM Reporting Lab: [address] [address] Performing Lab: [address] [address] H.PYLORI AG (L) NEGATIVE NEGATIVE May 15, 2024 11:18 AM [facility] FERRITIN SERUM Specimen Type: SERUM No comment entered. Ordering Provider: RAHEL MERINO Report Released Date/Time: May 15, 2024 08:31 AM Reporting Lab: [address] [address] Performing Lab: [address] [address] FERRITIN 9.59 ng/mL L 22-275 May 15, 2024 11:18 AM [facility] IRON/TIBC PROFILE SERUM Specimen Type: SERUM No comment entered. Ordering Provider: RAHEL MERINO Report Released Date/Time: May 15, 2024 08:31 AM Reporting Lab: [address] [address] Performing Lab: [address] [address] TIBC 368 ug/dL 250-450 TRANSFERRIN 294 mg/dL 163-344 IRON SATURATION 6 L 20-50 IRON 22 ug/dL L 65-175 May 15, 2024 11:18 AM [facility] CBC BLOOD Specimen Type: BLOOD No comment entered. Ordering Provider: RAHEL MERINO Report Released Date/Time: May 15, 2024 08:31 AM Reporting Lab: [place] [id number] Performing Lab: [facility] [address] [address] WBC 8.4 10*3/uL 3.6-11.2 RBC 4.12 10*6/uL [...] 1.82 10*3/uL 0.77-4.50 NEUT#-MDIFF 6.06 10*3/uL 2.10-8.00 Social History: Smoking Status (Most current) and Tobacco Use (All prior to encounter date) This section includes the most current, and the historical, smoking and tobacco- related health factors from the [facility] facility where the Encounter took place. Current Smoking Status This section includes the most current smoking, or tobacco-related health factor, from the [facility] facility where the Encounter took place. Date/Time Current Smoking Status Comment Cari solomony Jan 03, 2018 10:12 AM [place]-TOBACCO FORMER USER [facility] Tobacco Use History This section includes a history of the smoking, or tobacco-related health factors, that were collected on or before the date of the Encounter. The data comes from the [facility] facility where the Encounter took place. Date/Time Smoking Status/Tobacco Use Comment F acility Jan 03, 2018 10:12 AM [facility]-TOBACCO QUIT 5 TO < 15 YRS [facility] Radiology Reports: +/- 30 days of the [...] the Encounter. The data comes from all [facility] treatment facilities. Date/Time Radiology Report Provider Source Jun 28, 2024 02:[address] CERVICAL SPINE W/O CONT: SMILEY RAMON [id number] -[id number] M Exm Date: JUN 28, 2024@14:12 Req Phys: NANO FERGUSON Loc: [facility]ST CLR PACT 6 PCP (Req'g Lo Img Loc: [facility] IMAGING [facility] Service: Unknown [address] [address] (Case [id number] COMPLETE) CT CERVICAL SPINE W/O CONT (CT Detailed) CPT:45566 Reason for Study: cervicalgia Clinical History: Responsible Attending: Nano Ferguson Attending Contact Number: ext [phone] Resident Contact Number: chronic neck pain with [...] 28, 2024 Date Verified: JUN 28, 2024 Infant Teacher E-Sig:/ES/ADRIAN HAYNES Report: INDICATION: cervicalgia COMPARISON: Radiographs [...] above. Primary Interpreting Staff: ADRIAN HAYNES, RADIOLOGIST (Infant Teacher) /ADRIAN WILLAMS [facility] Pathology Reports: +/- 30 days of [...] the Encounter. The data comes from all [facility] treatment facilities. Date/Time Pathology Report Provider Source [...] Performing Laboratory: Surgical Pathology Report Performed By: [facility] CLIA# [id number] [address] [address] $FTR - - - - - - - - - - - - - - - - - - - - - - - - - - - - - - - - - - - - - - - - (End of report) GEOVANY TIWARI MD ph Date Jun 17, 2024 - - - - - - - - - - - - - - - - - - - - - - - - - - - - - - - - - - - - - - - - SMILEY RAMON STANDARD FORM 515 ID:[id number] SEX:M :1955 AGE: 68 LOC:GILABA2 PCP: Nano Ferguson MD /dayan/ GEOVANY TIWARI MD, PhD STAFF PATHOLOGIST Signed: 06/17/2024 16:15 GEOVANY TIWARI [facility] Encounter Notes: All associated encounter notes This section contains the clinical notes associated to the Encounter. Date/Time Encounter Note(s) Provider Source Jun 19, 2024 01:13 PM GASTROENTEROLOGY L ETTERS: LOCAL TITLE: GI BIOPSY RESULTS LETTER STANDARD TITLE: GASTROENTEROLOGY LETTERS DATE OF NOTE: JUN 19, 2024@13:13 ENTRY DATE: JUN 19, 2024@13:13:14 AUTHOR: ODILIA LÓPEZ COSIGNER: TAWANDA MARTINEZ URGENCY: STATUS: COMPLETED [address] [address] JUN 19, 2024 SMILEY RAMON [address] [place], [place] [address] Dear Smiley Ramon, Thank you for completing your Upper Endoscopy recently at [facility]. I am writing to give you the pathology results for the tissue removed during the procedure. I am happy to report that the tissue we removed is not cancer. This is good news. The stomach and small intestine had mild inflammation, I am not concerned about this. Please continue taking your stomach acid mailing jogger pantoprazole as prescribed. If you want to see the full pathology report, you may do this by logging on the [employer] website at [email or web address]. If you have not already done so, I recommend you visit this web site to set up your account. You will then be able to review this result and all future results. Please call [phone] if you have any questions about this letter. Sincerely, Odilia López MD Gastroenterology Fellow ODILIA LÓPEZ [facility] Jun 13, 2024 07:27 AM PREPROCEDURE NOTE: LOCAL TITLE: PHYSICIAN PRE-PROCEDURE ASSESSMENT ST STANDARD TITLE: PREPROCEDURE NOTE DATE OF NOTE: JUN 13, 2024@07:27 ENTRY DATE: JUN 13, 2024@07:28:07 AUTHOR: ODILIA LÓPEZ EXP COSIGNER: TAWANDA MARTINEZ URGENCY: STATUS: COMPLETED Airway: No significant abnormality Mallampati Score: 2 Neck Extension: Not Limited Teeth: No significant abnormality Cardiac: No significant abnormality Pulmonary: No significant abnormality Gastrointestinal: GERD, ALFREDO Neurological: No significant abnormality ASA Score: 3 Abdominal and Pelvic Surgical History: none Sedation/Anesthesia Plan: MAC, anesthesiologist present History of previous adverse reaction to sedation: No Tobacco use: No Alcohol use: No Recreational drug use: No Last oral intake:Last night Time spent:5-9 minutes /dayan/ Odilia López MD Gastroenterology Fellow Signed: 06/13/2024 07:29 /dayan/ TAWANDA MARTINEZ Staff Physician Cosigned: 06/13/2024 08:58 ODILIA LÓPEZ [facility]
--- OUTSIDE RECORDS SUMMARY | 2024-09-12 07:20 | XMS_ITS ---
Author Name [facility] [place] Organization [facility] [place] [place]) Address [address] [place] [address] Care Team Providers Care Monogram Operator Name Role Phone NANO LEONE Primary Care [...] PART A Aug 26, 1999 PART A [id number] [phone] ZACHROSSI GAGE PATIENT MEDICARE (WNR) MEDICARE (M) PART A Aug 26, 1999 PART A [id number] [phone] ROSSI RAMON ENDERChetan PATIENT Selected Encounter This section includes the information on record at MD for the Encounter. Date/Time Encounter Type Encounter Description Reason Provider Source Oct 05, 2023 02:30 PM OFFICE O/P EST MOD 30 MIN PRIMARY CARE/MEDICINE ICD-10-CM E11.9 Type 2 diabetes mellitus without complications NARESH LEONE IHTasha Encounter Template Text not used by MD Assessments - Encounter Diagnoses This section includes the primary and secondary diagnoses documented for the Encounter. Date/Time Primary/Secondary Diagnosis Diagnosis Name Provider Source Oct 19, 2023 09:42 AM PRIMARY Type 2 diabetes mellitus without complications LEONE,NANO A [facility] Oct 19, 2023 09:42 AM SECONDARY Cervicalgia LEONENANO Teresa [facility] Oct 19, 2023 09:42 AM SECONDARY Essential (primary) hypertension NANO LEONE [facility] Plan of Treatment: Future Appointments (+ 6 months) and Future Tests (+/- 45 days) The Plan of Treatment section includes future care activities for the patient [facility] This section includes future appointments and future orders which are active, pending or scheduled. Future Appointments This section includes appointments that were scheduled to occur 6 months from the date of the Encounter, up to a maximum of 20 appointments. The data comes from [facility] facilities. Appointment Date/Time Appointment Type Appointme nt Facility Name Nov 01, 2023 10:00 AM AMBULATORY - [facility] Jan 25, 2024 09:00 AM AMBULATORY - NONE [facility] Mar 11, 2024 09:30 AM AMBULATORY - MEDICINE [facility] Mar 12, 2024 09:30 AM AMBULATORY - MEDICINE [facility] Vital Signs: All taken on the encounter date This section contains inpatient and outpatient Vital Signs collected on the date of the Encounter. Date/Time Temperature Pulse Blood Pressure Respiratory Rate SP02 Pain Height Weight Body Mass Index Source Oct 05, 2023 02:26 PM 98.1 86 138/62 20 98 71 216 30 [facility] Social History: Smoking Status (Most current) [...] Current Smoking Status Comment Facil ity Jan 05, 2023 02:30 PM VA-TOBACCO FORMER USER [facility] Tobacco Use History This section includes a history of the smoking, or tobacco-related health factors, that were collected on or before the date of the Encounter. The data comes from the MD facility where the Encounter took place. Date/Time Smoking Status/Tobacco Use Comment F acility Jan 05, 2023 02:30 PM VA-TOBACCO QUIT 15 YRS OR MORE [facility] Nov 03, 2021 09:00 AM VA-TOBACCO FORMER USER [facility] Nov 03, 2021 09:00 AM VA-TOBACCO QUIT 15 YRS OR MORE [facility] Oct 19, 2020 11:30 AM VA-TOBACCO FORMER USER [facility] Oct 19, 2020 11:30 AM VA-TOBACCO QUIT 15 YRS OR MORE [facility] Jan 09, 2019 11:37 AM VA-TOBACCO FORMER USER [facility] Jan 09, 2019 11:37 AM VA-TOBACCO QUIT 5 TO < 15 YRS [facility] Jan 10, 2017 09:53 AM QUIT TOBACCO >12 M O & <7 YRS AGO [facility] Sep 28, 2016 08:46 AM QUIT TOBACCO >12 M O & <7 YRS AGO [facility] Aug 29, 2016 09:07 AM QUIT TOBACCO >12 M O & <7 YRS AGO [facility] Nov 19, 2015 10:54 AM QUIT TOBACCO >12 M O & <7 YRS AGO [facility] Nov 24, 2014 02:40 PM QUIT TOBACCO >12 M O & <7 YRS AGO [facility] Nov 14, 2013 10:11 AM QUIT TOBACCO >7 YEARS AGO [facility] Encounter Notes: All associated encounter notes This section contains the clinical notes associated to the Encounter. Date/Time Encounter Note(s) Provider Source Oct 30, 2023 12:28 PM PHARMACY OUTPATIEN T NOTE: LOCAL TITLE: OUTSIDE PRESCRIPTIONS ST STANDARD TITLE: PHARMACY OUTPATIENT NOTE DATE OF NOTE: OCT 30, 2023@12:28 ENTRY DATE: OCT 30, 2023@12:28:37 AUTHOR: NANO LEONE COSIGNER: URGENCY: STATUS: COMPLETED [facility] [address] [place] [phone] ext [phone] Date: OCT 30, 2023 Patient: SMILEY RAMONN Address: [address] [place] [address] To Whom it may Concern, This letter is issued upon the request of Mr Smiley Ramon. 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 Thank you very much. /es/ NANO LEONE MD Signed: 10/30/2023 12:32 NANO LEONE [facility] Oct 05, 2023 03:42 PM PRIMARY CARE NOTE: LOCAL TITLE: PRIMARY CARE PROVIDER ESTABLISHED VISIT ST STANDARD TITLE: PRIMARY CARE NOTE DATE OF NOTE: OCT 05, 2023@15:42 ENTRY DATE: OCT 19, 2023@09:42:23 AUTHOR: NANO LEONE EXP COSIGNER: URGENCY: STATUS: COMPLETED ESTABLISHED PATIENT [id number]: REASON FOR VISIT/CHIEF COMPLAINT: F/U er for left arm numbness HPI:pt was seen at the ER for left arm tingliness, pins and needle feeling of the arm. His discharge diagnosis was pinched nerve. he reports occ tightness of c-spine. denies recent whiplash injury. recommended PT for stretching ex, declined by pt . reviewed c- spine XR showning DDD spine. takes nsaid.declines gabapentin. GERD persistent. SOURCE(S) OF HISTORY: Patient PAST MEDICAL HISTORY: 1) Diabetes mellitus (SCT 33318691) - Diabetes mellitus without mention of complica 2) Benign essential hypertension (SCT 9918521) - Benign essential hypertension (ICD 3) Hyperlipidemia (SCT 89281269) - Other and unspecified hyperlipidemia (ICD-9-CM 2 comment: and repair of incisional hernia. 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 Extensive lysis of adhesions greater th 14) Hypokalemia 15) Adenoma comment: benign adrenal adenoma ( saw endo and DC to PCP) 16) Gastroesophageal reflux disease 17) Insomnia 18) Acquired pes planus 19) Erectile Dysfunction (SCT [id number]) 20) Exposure to potentially hazardous substance 21) Trochanteric bursitis of right hip 22) Trochanteric bursitis of left hip 23) Obesity FAMILY HISTORY: No new updates. SOCIAL HISTORY: NICOTINE: Nicotine User: No ILLICIT DRUGS: No ETOH: denies ALLERGIES: Patient has answered NKA ALLERGY REVIEW: Allergy list reviewed and remains current. 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 Handwritten corrections, additions and/or deletions were made to the list. Corrected Outpatient Medication List was provided to the patient/caregiver. Active Outpatient Medications (including Supplies): Active Outpatient Medications Status 1) AMLODIPINE BESYLATE 10MG TAB TAKE ONE TABLET BY MOUTH ACTIVE ONCE A DAY FOR HEART/BLOOD PRESSURE 2) ASPIRIN 81MG EC TAB TAKE ONE TABLET BY MOUTH ONCE A ACTIVE DAY FOR CARDIOVASCULAR DISEASE TAKE WITH FOOD. 3) CELECOXIB 100MG CAP TAKE ONE CAPSULE BY MOUTH TWICE ACTIVE DAILY NEEDED FOR OSTEOARTHRITIS TAKE WITH FOOD. 4) CHOLECALCIF 50MCG (D3-2,000UNIT) TAB TAKE ONE TABLET ACTIVE BY MOUTH ONCE A DAY FOR VITAMIN D DEFICIENCY. 5) DICLOFENAC NA 1% TOP GEL APPLY 4 GM TO AFFECTED ACTIVE AREA(S) FOUR TIMES A DAY DO NOT EXCEED MORE THAN 16 GRAMS DAILY TO ANY LOWER EXTREMITY JOINT. NOT MORE THAN 8 GRAMS DAILY TO ANY UPPER EXTREMITY JOINT. MAX 32GM/DAY OVER ALL JOINTS. (MEASURE DOSE WITH RULER ATTACHED INSIDE BOX) 6) FAMOTIDINE 20MG TAB TAKE ONE TABLET BY MOUTH TWICE ACTIVE DAILY NEEDED FOR BREAKTHROUGH FOR GASTROESOPHAGEAL REFLUX DISEASE 7) HYDROCHLOROTHIAZIDE 25MG TAB TAKE ONE TABLET BY MOUTH ACTIVE ONCE A DAY FOR HIGH BLOOD PRESSURE 8) MAGNESIUM OXIDE 400MG TAB TAKE ONE TABLET BY MOUTH ACTIVE (S) TWICE A DAY 9) METFORMIN HCL 1000MG TAB TAKE ONE-HALF TABLET BY ACTIVE MOUTH TWICE A DAY WITH MEALS FOR BLOOD SUGAR CONTROL. TAKE WITH FOOD. AVOID ALCOHOL. DISCONTINUE BEFORE GETTING XRAY DYE. 10) METHOCARBAMOL 750MG TAB TAKE 1-2 TABLETS BY MOUTH ACTIVE FOUR TIMES A DAY NEEDED FOR MUSCLE RELAXANT 11) PANTOPRAZOLE NA 40MG EC TAB TAKE ONE TABLET BY MOUTH ACTIVE TWICE A DAY FOR GASTROESOPHAGEAL REFLUX DISEASE TAKE 30 MINUTES BEFORE MEAL(S) 12) POTASSIUM CL 20MEQ SA TAB (DISPERSIBLE) TAKE ONE ACTIVE TABLET BY MOUTH TWICE A DAY FOR POTASSIUM SUPPLEMENTATION TAKE WITH FOOD 13) TADALAFIL 10MG TAB TAKE ONE TABLET BY MOUTH EVERY ACTIVE (S) WEEK NEEDED FOR ERECTILE DYSFUNCTION (TAKE 30 MINUTES PRIOR TO SEXUAL ACTIVITY) - LIMIT 6 DOSES PER 30 DAYS 14) TRAZODONE HCL 100MG TAB TAKE THREE TABLETS BY MOUTH ACTIVE AT BEDTIME FOR INSOMNIA REVIEW OF SYSTEMS: General: Normal [...] as listed in the electronic record): B/P: 138/62 (10/05/2023 14:26) Pulse: 86 (10/05/2023 14:26) Temperature: 98.1 F [36.7 C] (10/05/2023 14:26) Weight: 216 lb [97.98 kg] (10/05/2023 14:26) Height: 71 in [180.3 cm] (10/05/2023 14:26) BMI: 30.2 Pain: 8 (09/04/2023 09:09) (0-10 scale) General: pleasant, cooperative, well-developed, obese appropriately dressed and groomed ; in no acute distress. Ears, Nose, Mouth, Throat:NC/AT , MMm neg spurling Eye:PERRL Cardiovascular:RRR, No m/r/g or clicks. Respiratory:Clear to auscultation bilaterally. No accessory muscle use. Respirations even and non-labored ABD/GI:soft, non-tender. BS + x 4. /OTM CONSULTANT: Deferred Lymph: No lymphadenopathy Extremities:No pedal edema. Psych:Affect appropriate. Neuro: Oriented x3. Gait steady with normal stride. Hematology: Color good. No pallor. No ecchymosis or petechiae. Skin:No visualized abnormalities. DATA REVIEW: SLT - Lab Tests Selected Collection DT Specimen Test Name Result Units Ref Range 07/26/2023 14:08 BLOOD HGA1C 6.2 H % 4.0 - 6.0 07/06/2022 10:39 BLOOD HGA1C 6.3 H % 4.0 - 6.0 12/28/2021 17:55 BLOOD HGA1C 6.4 H % 4.0 - 6.0 = TRIGLYCERIDE 135 mg/dL 07/26/2023 14:08 CHOLESTEROL 217 H mg/dL 07/26/2023 14:08 HDL(New) 44 mg/dL 07/26/2023 14:08 CALCULATED LDL 146 mg/dL 07/26/2023 14:08 = SODIUM 138 mEq/L 07/26/2023 14:08 POTASSIUM 4.6 mEq/L 07/26/2023 14:08 CHLORIDE 106 mEq/L 07/26/2023 14:08 UREA NITROGEN 18.9 mg/dL 07/26/2023 14:08 CREATININE 1.03 mg/dL 07/26/2023 14:08 CALCIUM 9.2 mg/dL 07/26/2023 14:08 PROTEIN 7.5 g/dL 07/26/2023 14:08 ALBUMIN 4.3 g/dL 07/26/2023 14:08 ALKALINE PHOSPHATASE 104 U/L 07/26/2023 14:08 ALT/SGPT 12 U/L 07/26/2023 14:08 AST/SGOT 16 U/L 07/26/2023 14:08 TOTAL BILIRUBIN 0.3 mg/dL 07/26/2023 14:08 CARBON DIOXIDE 23 mEq/L 07/26/2023 14:08 GLUCOSE 82 mg/dL 07/26/2023 14:08 EGFR (CKD-EPI 2020) 80.1 07/26/2023 14:08 = WBC 7.7 10*3/uL 07/26/2023 14:08 RBC 4.33 10*6/uL 07/26/2023 14:08 HGB 10.3 L g/dL 07/26/2023 14:08 HCT 34.3 L % 07/26/2023 14:08 MCV 79.2 L fL 07/26/2023 14:08 MCH 23.8 L pg 07/26/2023 14:08 MCHC 30.0 L g/dL 07/26/2023 14:08 RDW 17.8 H % 07/26/2023 14:08 PLT 409 H 10*3/uL 07/26/2023 14:08 MPV 10.0 fL 07/26/2023 14:08 NEUTROPHILS, AUTO % 64 % 07/26/2023 14:08 LYMPHOCYTES, AUTO % 23 % 07/26/2023 14:08 MONOCYTES, AUTO % 12 % 07/26/2023 14:08 EOSINOPHILS, AUTO % 1 % 07/26/2023 14:08 BASOPHILS, AUTO % 0 % 07/26/2023 14:08 NEUTROPHILS, ABSOLUTE 4.86 10*3/uL 07/26/2023 14:08 LYMPHOCYTES, ABSOLUTE 1.77 10*3/uL 07/26/2023 14:08 MONOCYTES, ABSOLUTE 0.90 H 10*3/uL 07/26/2023 14:08 EOSINOPHILS, ABSOLUTE 0.06 10*3/uL 07/26/2023 14:08 BASOPHILS, ABSOLUTE 0.03 10*3/uL 07/26/2023 14:08 = PROST. SPECIFIC AG.(PB-STL) 3.320 ng/mL 07/26/2023 14:08 PROST. SPECIFIC AG.(PB-STL) 1.996 ng/mL 07/06/2022 10:39 PROST. SPECIFIC AG.(PB-STL) 1.609 ng/mL 08/09/2021 08:55 PROST. SPECIFIC AG.(PB-STL) 1.144 ng/mL 07/04/2020 11:06 PROST. SPECIFIC AG.(PB-STL) 0.726 ng/mL 08/01/2019 10:28 PROST. SPECIFIC AG.(PB-STL) 0.596 ng/ml 10/22/2018 10:46 = TSH 0.673 uIU/mL 12/28/2021 17:55 = URIC ACID: No data available for: URIC ACID = B12 266 pg/mL 07/06/2022 10:39 = VITAMIN D, 25-HYDROXY 56.9 ng/mL 12/28/2021 17:55 = INR: No INR EO data found = URINE COLOR Yellow 12/28/2021 17:55 APPEARANCE Clear 12/28/2021 17:55 U.PH 6.5 12/28/2021 17:55 U.BILIRUBIN 1+ 12/28/2021 17:55 U.NITRITE Negative mg/dL 12/28/2021 17:55 URINE RBC/HPF 1 /HPF 12/28/2021 17:55 URINE WBC/HPF 1 /HPF 12/28/2021 17:55 SQUAMOUS EPITH. 1 /HPF 12/28/2021 17:55 MUCUS RARE /LPF 12/28/2021 17:55 HYALINE CASTS 13 H /LPF 12/28/2021 17:55 CA OXYLATE CRYSTALS RARE /HPF 12/28/2021 17:55 = Urine Microalbumin: CREATuF: 141.5 (07/26/23 14:08) M/CREAT: 5 (07/26/23 14:08) MICRAL: 7.3 (07/26/23 14:08) = CREATININE URINE/OTHERS 141.5 mg/dL 07/26/2023 14:08 = Dilantin: ____ = Digoxin: No data available for: DIGOXIN = Chest x-ray: No data available for: CHEST 2 VIEWS PA&LAT = EKG: No data available for: EKG CONSULT STL EKG CONSULTS PB EKG RESULTS MA Result: Acceptable Follow-up Action: Data results reviewed with patient ASSESSMENT/PLAN: cervicalgia with radiculopathy, better, cont stretching exercises. cont nsaid and apap prn for pain. monitor DM stable com HTN conreolled. cpm RETURN TO CLINIC:6-9 mo Return to Clinic order placed SUMMARY STATEMENT: Plan of care has been discussed with including expected therapeutic benefits and potential side effects of prescribed medication and treatments. [place] verbalizes understanding and is in agreement with the plan of care. Patient was instructed to keep all scheduled appointments and contact photo offset printer for any additional problems. PREVENTION & SCREENING: ALCOHOL: Clinical Reminder not due now or within a month BLOOD PRESSURE: Clinical Reminder not due now or within a month HEMOGLOBIN A1C: Clinical Reminder not due now or within a month /es/ NANO LEONE MD Signed: 10/30/2023 12:27 NANO LEONE [facility] Oct 05, 2023 02:31 PM NURSING NOTE: LOCAL TITLE: V15 PACT FACE TO FACE NOTE ST STANDARD TITLE: NURSING NOTE DATE OF NOTE: OCT 05, 2023@14:31 ENTRY DATE: OCT 05, 2023@14:31:04 AUTHOR: MICHAEL HAM COSIGNER: URGENCY: STATUS: COMPLETED Provider Visit: Patient Identifiers : Full Name Date of Reason for visit: Established Follow-Up Mode of Arrival: Ambulatory Allergy Review: Patient has answered NKA Allergy list reviewed and remains current. Recent Vital Signs: Temperature: 98.1 F [36.7 C] (10/05/2023 14:26) Pulse: 86 (10/05/2023 14:26) Respiration: 20 (10/05/2023 14:26) B/P: 138/62 (10/05/2023 14:26) Pain: 8 (09/04/2023 09:09) Wt: 216 lb [97.98 kg] (10/05/2023 14:26) Ht: 71 in [180.3 cm] (10/05/2023 14:26) BMI: 30.2 POX: 98% (10/05/2023 14:26) Would you like to discuss any personal problem, family problem, alcohol use, drug use, or a mental or emotional illness? No [facility] ([facility]), please select appointment type: Face to face: No-please briefly review benefits and direct to [facility] to get more information and register if interested. Contact provided Primary Care phone number and encouraged to call if any questions or concerns. Review that after hours nurse line ext.[phone] and emergency room are available 17/10 for patient use. Contact verbalized good understanding. Cigarette Pack Year History: The patient previously used cigarettes and quit smoking greater than or equal to 15 years ago. /dayan/ MICHAEL HAM LPN LICENSED PRACTICAL NURSE Signed: 10/05/2023 14:32 MICHAEL HAM [facility]
--- OUTSIDE RECORDS SUMMARY | 2024-09-12 07:20 | XMS_ITS | Encounter Summary ---
Author Name [facility] [place] Organization [place] Address [address] [place] [address] Care Team Providers Care Paper Making Machine Operator Name Role Phone NANO LEONE Primary [...] PART A Aug 26, 1998 PART A [id number] ZACHROSSI RRChetan PATIENT MEDICARE (WNR) MEDICARE (M) PART A Aug 26, 1999 PART A [id number] ROSSI SERRANO RRChetan PATIENT Selected Encounter This section includes the information on record at [place] for the Encounter. Date/Time Encounter Type Encounter Description Reason Provider Source Sep 28, 2023 02:48 PM Outpatient Encounter GENERAL INTERNAL MEDICINE NANO LEONE Tasha Encounter Template Text not used by [place] Plan of Treatment: Future Appointments (+ 6 months) and Future Tests (+/- 45 days) The Plan of Treatment section includes future care activities for the patient from all [facility] treatment[facility]ilities. This section includes future appointments and future orders which are active, pending or scheduled. Future Appointments This section includes appointments that were scheduled to occur 6 months from the date of the Encounter, up to a maximum of 20 appointments. The data comes from all [place] treatment facilities. Appointment Date/Time Appointment Type Appointme nt Facility Name Oct 04, 2023 01:00 PM AMBULATORY - [facility]AB MED[facility] E [facility] Oct 05, 2023 02:30 PM AMBULATORY - MEDICINE [facility] Nov 01, 2023 10:00 AM AMBULATORY - [facility]IC[facility] E [facility] Jan 25, 2024 09:00 AM AMBULATORY - NONE [facility] Mar 11, 2024 09:30 AM AMBULATORY - MEDICINE [facility] Mar 12, 2024 09:30 AM AMBULATORY - MEDICINE [facility] Social History: Smoking Status (Most current) and Tobacco Use (All prior to encounter date) This section includes the most current, and the historical, smoking and tobacco- related health factors from the [place] facility where the Encounter took place. Current Smoking Status This section includes the most current smoking, or tobacco-related health factor, from the [place] facility where the Encounter took place. Date/Time Current Smoking Status Comment Facil ity Jan 03, 2018 10:12 AM VA-TOBACCO FORMER USER [facility] Tobacco Use History This section includes a history of the smoking, or tobacco-related health factors, that were collected on or before the date of the Encounter. The data comes from the [place] facility where the Encounter took place. Date/Time Smoking Status/Tobacco Use Comment F acility Jan 03, 2018 10:12 AM [place]-TOBACCO QUIT 5 TO < 15 YRS [facility] Encounter Notes: All associated encounter notes This section contains the clinical notes associated to the Encounter. Date/Time Encounter Note(s) Provider Source Sep 23, 2023 02:48 PM NONVA NOTE: LOCAL TITLE: [facility] PRESENTING CARE COORD PLAN STANDARD TITLE: NONVA NOTE DATE OF NOTE: SEP 23, 2023@14:48 ENTRY DATE: SEP 28, 2023@14:48:28 AUTHOR: ROBIN BOWEN COSIGNER: URGENCY: STATUS: COMPLETED Emergency Notification Intake Date Presenting to the Facility: Aug Method of Contact: Notified from [facility] worklist Notification ID: [id number] [facility] Referral #: [id number] Clinical Review [facility] Name: Hospital: [facility] Address: [address] City: [place] State: [place] Zip Code: [address] Community Facility Point of Contact: Name: Mohan Grewal Chief complaint: Numbness, Cervical radiculopathy Primary Diagnosis: Disposition Discharged Date of discharge: Aug Discharge to home Chief Complaint Patient presents with Numbness 68-year-old male presenting to emergency department for evaluation of intermittent numbness to left arm over the past month. Associated with pain. Patient reports pain worsens when lying on that side. Reports today having some increase in the paresthesias on the left arm. Denies any weakness with this. Pain radiates from left lateral neck. Denies any facial numbness, leg numbness, headache or vision changes. Records r/t this episode of care may be found in [facility]; also sent to [facility] for scanning. Records shared securely with PACT team via handoff e-mail. Please review attached DC summary and place any necessary referrals/consults [facility] to avoid non-payment for follow-up services. /dayan/ ROBIN BOWEN [facility] ENGLISH PROFESSOR Signed: 09/28/2023 14:52 Receipt Acknowledged By: 10/19/2023 17:07 /dayan/ ROBIN WRIGHT MD [facility]
--- OUTSIDE RECORDS SUMMARY | 2024-09-12 07:20 | XMS_ITS | Encounter Summary ---
Author Name [facility] [place] [facility] [place] Address [address] [place] [address] Care Team Providers Care Hvac Controls Technician Name Role Phone ANNO LEONE Primary Care Provider Unavailabl e Insurance [...] PART A Aug 26, 1999 PART A [id number] ROSSI SERRANO PATIENT MEDICARE (WNR) MEDICARE (M) PART A Aug 26, 1999 PART A [id number] GAGE PATIENT Selected Encounter This section includes the information on record at [place] for the Encounter. Date/Time Encounter Type Encounter Description Reason Provider Source August 07, 2024 01:40 PM Outpatient Encounter COMMUNITY CARE CONSULT JANI JUÁREZ Encounter Template Text not used by [place] Plan of Treatment: Future Appointments (+ 6 [...] 20 appointments. The data comes from all [facility]. Appointment Date/Time Appointment Type Appointme nt Facility Name Sep 05, 2024 01:00 PM AMBULATORY - REHAB MEDICIN E [facility] Sep 05, 2024 02:30 PM AMBULATORY - NONE [facility] Sep 09, 2024 01:00 PM AMBULATORY - REHAB MEDICIN E [facility] Sep 11, 2024 11:00 AM AMBULATORY - REHAB MEDICIN E [facility] Sep 12, 2024 07:30 AM AMBULATORY - NONE [facility] Sep 12, 2024 07:40 AM AMBULATORY - NONE [facility] Oct 11, 2024 03:30 PM AMBULATORY - REHAB MEDICIN E [facility] Oct 18, 2024 02:00 PM AMBULATORY - MEDICINE [facility] Oct 25, 2024 03:00 PM AMBULATORY - REHAB MEDICIN E [facility] Oct 31, 2024 02:00 PM AMBULATORY - MEDICINE [facility] Active, Pending, and Scheduled Orders This section includes a listing of several types of active, pending, and scheduled orders, including clinic medications orders, diagnostic test orders, procedure orders and consult orders; where the start date of the order is 45 days before the date of the Encounter or 45 days after the date of theEncounter. The data comes from all [facility]. Test Date/Time Test Type Test Details Facility Name August 01, 2024 02:06 PM Consult Order COMMUNITY CARE-CT [facility] Cons Sales Demonstrator's Choice [facility] August 01, 2024 02:07 PM Consult Order COMMUNITY CARE-CT [facility] Cons Sales Demonstrator's [facility] Social History: Smoking Status (Most current) and Tobacco Use (All prior to encounter date) This section includes the most current, and the historical, smoking and tobacco- related health factors from the [place] facility where the Encounter took place. Current Smoking Status This section includes the most current smoking, or tobacco-related health factor, from the [place] facility where the Encounter took place. Date/Time Current Smoking Status Comment Facil ity Jan 03, 2018 10:12 AM [place]-TOBACCO FORMER USER [facility] Tobacco Use History This section includes a history of the smoking, or tobacco-related health factors, that were collected on or before the date of the Encounter. The data comes from the [place] facility where the Encounter took place. Date/Time Smoking Status/Tobacco Use Comment F acmiguel a Jan 03, 2018 10:12 AM [place]-TOBACCO QUIT 5 TO < 15 YRS [facility] Encounter Notes: All associated encounter notes This section contains the clinical notes associated to the Encounter. Date/Time Encounter Note(s) Provider Source August 07, 2024 01:40 PM NONVA NOTE: LOCAL TITLE: COMMUNITY CARE-CARE COORDINATION PLAN NOTE [address] [facility] STANDARD TITLE: NONVA NOTE DATE OF NOTE: AUGUST 07, 2024@13:40 ENTRY DATE: AUGUST 07, 2024@13:40:14 AUTHOR: JANI JUÁREZ EXP COSIGNER: URGENCY: STATUS: COMPLETED Community Care Consult: COMMUNITY CARE-CT [facility] 08/01/2024 Consult No: [id number] [facility] Referral #: [id number] Chief Complaint: low back pain radiating to the hips and down the legs Patient Admitted? No Level of Care Coordination Moderate Care Coordination was determined from: Chart Review Facility Community Care Office Contact Care Coordination Point of Contact: Jani Juárez RN Services: Basic Care Coordination Services Monitoring and coordination of Rehab/PT Services Direct communication to referring provider Care management, if appropriate Plan: Send to [facility]. Fax authorization to provider. Follow up with provider or for scheduling update. Follow up with after appointment. Retrieve records for visit. Review imaging report, document any significant finding. Send to scanner. Request disc of images. Assess if any other care is needed. /dayan/ JANI JUÁREZ Registered Nurse Signed: 08/07/2024 13:43 JANI JUÁREZ [facility]
--- OUTSIDE RECORDS SUMMARY | 2024-09-12 07:20 | XMS_ITS | Encounter Summary ---
Author Name [facility] [place] Organization [place] Address [address] [place] [address] Care Team Providers Care Environmental Health Physician Name Role Phone NANO FERGUSON Primary Care [...] PART A Aug 26, 1999 PART A [id number] ROSSI SERRANO RRY PATIENT MEDICARE (WNR) MEDICARE ([place]) PART A Aug 26, 1999 PART A [id number] [phone] ROSSI SERRANO RRY PATIENT Selected Encounter This section includes the information on record at [place] for the Encounter. Date/Time Encounter Type Encounter Description Reason Provider Source Jun 13, 2024 08:55 AM Outpatient Encounter ADMIN PAT ACTIVTIES (MASNONCT) TIMO ARZATE Encounter Template Text not used by [place] Plan of Treatment: Future Appointments (+ 6 [...] 20 appointments. The data comes from all [facility]. Appointment Date/Time Appointment Type Appointme nt Facility Name Jun 17, 2024 12:00 PM AMBULATORY - NONE [facility] Jun 21, 2024 11:00 AM AMBULATORY - MEDICINE [facility] Jun 21, 2024 02:00 PM AMBULATORY - MEDICINE [facility] Jun 28, 2024 03:30 PM AMBULATORY - NONE [facility] Jul 11, 2024 01:30 PM AMBULATORY - MEDICINE [facility] August 01, 2024 01:15 PM AMBULATORY - SURGERY [facility] Sep 05, 2024 01:00 PM AMBULATORY - REHAB MEDICIN E [facility] Sep 05, 2024 02:30 PM AMBULATORY - NONE [facility] Sep 09, 2024 01:00 PM AMBULATORY - REHAB MEDICIN E [facility] Sep 11, 2024 11:00 AM AMBULATORY - REHAB MEDICIN E [facility] Sep 12, 2024 07:30 AM AMBULATORY - NONE [facility] Sep 12, 2024 07:40 AM AMBULATORY - NONE [facility] Oct 11, 2024 03:30 PM AMBULATORY - REHAB MEDICIN E [facility] Oct 18, 2024 02:00 PM AMBULATORY - MEDICINE [facility] Oct 25, 2024 03:00 PM AMBULATORY - REHAB MEDICIN E [facility] Oct 31, 2024 02:00 PM AMBULATORY - MEDICINE [facility] Active, Pending, and Scheduled Orders This section includes a listing of several types of active, pending, and scheduled orders, including clinic medications orders, diagnostic test orders, procedure orders and consult orders; where the start date of the order is 45 days before the date of the Encounter or 45 days after the date of theEncounter. The data comes from all [facility]. Test Date/Time Test Type Test Details Facility Name May 03, 2024 12:00 AM Laboratory - Chemi ganga Order OCCULT BLOOD FIT X1 SCREEN STOOL FECES SP [facility] Lab Results: +/- 30 days of the encounter This section includes the Chemistry and Hematology Lab Results on record with [place] for the patient. Radiology Reports and Pathology Reports are provided separately, in subsequent sections. Lab Results This section contains the Chemistry/Hematology Results that were resulted 30 days before or 30 daysafter the date of the Encounter. Date/Time Source Result Type Result - Unit Interpretation Reference Range Specimen Type Comment Jun 28, 2024 02:04 PM [facility] CELIAC DISEASE PANEL (STL-MRN) SERUM Specimen Type: [...] = 15.0 Antibody detected Test Performed by [facility], [address] [place] [address] Luca Guerra M.D., Ph.D., Director of Laboratories , [facility] [id number] Ordering Provider: ANASTASIA SLOAN Report Released Date/Time: May 20, 2024 02:26 PM Reporting Lab: [facility] [address] [facility] [address] Performing Lab: [facility] [address] [facility] IMMUNOGLOBULIN A (PB-MA) 230 mg/dL 70-32 0 TTG-IGA <1.0 SEE BELOW Jun 28, 2024 02:03 PM [facility] FERRITIN SERUM Specimen Type: SERUM No comment entered. Ordering Provider: RAHEL MERINO Report Released Date/Time: Jun 21, 2024 03:32 PM Reporting Lab: [facility] [address] [place] [address] Performing Lab: [facility] [address] [facility] [address] FERRITIN 41.05 ng/mL 22-275 Jun 28, 2024 02:03 PM [facility] IRON/TIBC PROFILE SERUM Specimen Type: SERUM No comment entered. Ordering Provider: RAHEL MERINO Report Released Date/Time: Jun 21, 2024 03:32 PM Reporting Lab: [address] [address] Performing Lab: [address] [address] TIBC 303 ug/dL 250-450 TRANSFERRIN 242 mg/dL 163-344 IRON SATURATION 19 L 20-50 IRON 56 ug/dL L 65-175 Jun 28, 2024 02:03 PM [facility] CBC BLOOD Specimen Type: BLOOD No comment entered. Ordering Provider: RAHEL MERINO Report Released Date/Time: Jun 21, 2024 03:32 PM Reporting Lab: [address] [address] Performing Lab: [address] [address] WBC 7.7 10*3/uL 3.6-11.2 RBC 4.95 10*6/uL [...] 0.00-0. 20 Jun 13, 2024 07:34 AM [facility] GLUCOSE,BLOOD-poct (STL) BLOOD Specimen Type: BLOOD Comment: Test Performed by: [id number] Meter #: [id number] Ordering Provider: TAWANDA MARTINEZ Report Released Date/Time: Jun 13, 2024 07:37 AM Reporting Lab: [address] [address] Performing Lab: [address] [address] GLUCOSE,BLOOD-poct (STL) 95 mg/dL 72-99 May 21, 2024 06:01 PM [facility] FERRITIN SERUM Specimen Type: SERUM Comment: FE Sat Unable to be calculated Ordering Provider: RAHEL MERINO Report Released Date/Time: May 15, 2024 02:28 PM Reporting Lab: [address] [address] Performing Lab: [address] [address] FERRITIN 1052.99 ng/mL H 22-275 May 21, 2024 06:01 PM [facility] IRON/TIBC PROFILE SERUM Specimen Type: SERUM Comment: FE Sat Unable to be calculated Ordering Provider: RAHEL MERINO Report Released Date/Time: May 15, 2024 02:28 PM Reporting Lab: [address] [address] Performing Lab: [address] [address] TIBC 309 ug/dL 250-450 TRANSFERRIN 247 mg/dL 163-344 IRON SATURATION 45 20-50 IRON 139 ug/dL 65-175 May 21, 2024 06:01 PM [facility] CBC BLOOD Specimen Type: BLOOD No comment entered. Ordering Provider: RAHEL MERINO Report Released Date/Time: May 15, 2024 02:28 PM Reporting Lab: [address] [place] [address] Performing Lab: [address] [address] WBC 7.7 10*3/uL 3.6-11.2 RBC 4.18 10*6/uL [...] SCRNPERF YES May 21, 2024 12:08 PM [facility] H.PYLORI AG (STL) FECES Specimen Type: FECES No comment entered. Ordering Provider: ANASTASIA SLOAN Report Released Date/Time: May 20, 2024 02:26 PM Reporting Lab: [address] [address] Performing Lab: [address] [address] H.PYLORI AG (STL) NEGATIVE NEGATIVE May 15, 2024 11:18 AM [facility] FERRITIN SERUM Specimen Type: SERUM No comment entered. Ordering Provider: RAHEL MERINO Report Released Date/Time: May 15, 2024 08:31 AM Reporting Lab: [address] [address] Performing Lab: [address] [address] FERRITIN 9.59 ng/mL L 22-275 May 15, 2024 11:18 AM [facility] IRON/TIBC PROFILE SERUM Specimen Type: SERUM No comment entered. Ordering Provider: RAHEL MERINO Report Released Date/Time: May 15, 2024 08:31 AM Reporting Lab: [address] [address] Performing Lab: [address] [address] TIBC 368 ug/dL 250-450 TRANSFERRIN 294 mg/dL 163-344 IRON SATURATION 6 L 20-50 IRON 22 ug/dL L 65-175 May 15, 2024 11:18 AM [facility] CBC BLOOD Specimen Type: BLOOD No comment entered. Ordering Provider: RAHEL MERINO Report Released Date/Time: May 15, 2024 08:31 AM Reporting Lab: [address] [address] Performing Lab: [address] [address] WBC 8.4 10*3/uL 3.6-11.2 RBC 4.12 10*6/uL [...] and tobacco- related health factors from the [place] facility where the Encounter took place. Current Smoking Status This section includes the most current smoking, or tobacco-related health factor, from the [place] facility where the Encounter took place. Date/Time Current Smoking Status Comment Cari garvey Jan 03, 2018 10:12 AM [place]-TOBACCO FORMER USER [facility] Tobacco Use History This section includes a history of the smoking, or tobacco-related health factors, that were collected on or before the date of the Encounter. The data comes from the [place] facility where the Encounter took place. Date/Time Smoking Status/Tobacco Use Comment F dino Jan 03, 2018 10:12 AM [place]-TOBACCO QUIT 5 TO < 15 YRS [facility] Radiology Reports: +/- 30 days of [...] the Encounter. The data comes from all [place] treatment facilities. Date/Time Radiology Report Provider Source Jun 28, 2024 02:[address] CERVICAL SPINE W/O CONT: SMILEY SERRANO [id number] -1955 M Exm Date: JUN 28, 2024@14:12 Req Phys: FERGUSON,NANO A Nuzhat Loc: [facility]ST CLR PACT 6 PCP (Req'g Lo Img Loc: [facility]-CT IMAGING [facility] Service: Unknown [facility], [address] [place] [address] (Case [id number] COMPLETE) CT CERVICAL SPINE W/O CONT (CT Detailed) CPT:32097 Reason for Study: cervicalgia Clinical History: Responsible Attending: Nano Ferguson Attending Contact Number: ext [phone] Resident Contact Number: chronic neck pain with [...] 28, 2024 Date Verified: JUN 28, 2024 Supervisor Frame Sample And Pattern E-Sig:/ES/ADRIAN HAYNES Report: INDICATION: cervicalgia COMPARISON: Radiographs [...] above. Primary Interpreting Staff: ADRIAN HAYNES, RADIOLOGIST (Supervisor Frame Sample And Pattern) /ADRIAN WILLAMS [facility] Pathology Reports: +/- 30 days [...] the Encounter. The data comes from all [place] treatment facilities. Date/Time Pathology Report Provider Source Jun 17, 2024 04:15 PM LR SURGICAL PATHOL OGY REPORT: LOCAL TITLE: LR SURGICAL PATHOLOGY REPORT STANDARD TITLE: PATHOLOGY PROCEDURE NOTE DATE OF NOTE: JUN 17, 2024@16:15:32 ENTRY DATE: JUN 17, 2024@16:15:32 AUTHOR: GEOVANY TIWARI COSIGNER: URGENCY: STATUS: COMPLETED $APHDR - - [...] - - PATHOLOGY REPORT Accession No. [id number] - - - - - - [...] - - - - - PREOPERATIVE DIAGNOSIS: INGE - - - - - - - [...] Performing Laboratory: Surgical Pathology Report Performed By: [address]# [id number] [address] [place] [id number] $FTR - - - - - - [...] - - SMILEY SERRANO STANDARD FORM 515 ID:[id number] SEX:M :1955 AGE: 68 LOC:[place] [id number] PCP: Nano Ferguson MD /daayn/ GEOVANY TIWARI MD, PhD STAFF PATHOLOGIST Signed: 06/17/2024 16:15 GEOVANY TIWARI [facility] Encounter Notes: All associated encounter notes This section contains the clinical notes associated to the Encounter. Date/Time Encounter Note(s) Provider Source Jun 13, 2024 08:55 AM ANESTHESIOLOGY AMBER WSHEET: LOCAL TITLE: ANES INTRA-OP FLOWSHEET ST STANDARD TITLE: ANESTHESIOLOGY FLOWSHEET DATE OF NOTE: JUN 13, 2024@08:55 ENTRY DATE: JUN 13, 2024@08:55:30 AUTHOR: TIMO ARZATE EXP COSIGNER: URGENCY: STATUS: COMPLETED Patient: SMILEY SERRANO SSN: [id number] Date of Operation: 06/13/2024 Surgery Start Time: Surgery End Time: Anesthesia Care Start: 06/13/2024 7:46 Anesthesia Care End: 06/13/2024 8:55 Anesthesia Method: - Monitored 06/13/2024 7:47 (Primary), Level Of Consciousness: Sedated, Monitors Applied, Oxygen Therapy: Mask, EtCO2 Verified: Waveform Positioning: Head Neutral, Head And Neck In Alignment With Spine, Pressure Points Padded & Checked, Eyes, Ears And Nose Free Of Pressure ASA Number: 3 Procedure: egd/colonoscopy Diagnosis: inge Holding, Anesthesia, PACU Drugs: --------- Lidocaine: 100 mg Propofol: 100 mg Propofol gtt: 573.718 mg Holding, Anesthesia, PACU Fluids: Resources: Headrest - Pillow Staff: --------- TIMO ARZATE PRIN. ANES. AGARWAL, MAYANK, ANES. SUPER. Procedure Date: 06/13/2024 Procedure Start Time: 06/13/2024 7:51 Procedure End Time: 06/13/2024 8:52 /dayan/ TIMO ARZATE CRNA TERRAZZO LABORER, Anesthesiology Signed: 06/13/2024 08:55 TIMO ARZATE [facility]
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
--- OUTSIDE RECORDS SUMMARY | 2024-09-12 07:20 | XMS_ITS | Encounter Summary ---
Author Name [facility] [place] Organization [facility] [place] [facility] [place] Address [address] [place] [address] Care Team Providers Care Geographic Area Intelligence Officer Name Role Phone NANO LEONE Primary [...] PART A Aug 26, 1999 PART A [id number] ROSSI RAMON RRY PATIENT MEDICARE (WNR) MEDICARE (M) PART A Aug 26, 1999 PART A [id number] ROSSI RAMON RRChetan PATIENT Selected Encounter This section includes the information on record at [place] for the Encounter. Date/Time Encounter Type Encounter Description Reason Provider Source May 15, 2024 11:00 AM OFFICE O/P NEW [place] 60 MIN ONCOLOGY/TUMOR ICD-10-CM D50.9 Iron deficiency anemia, unspecified SOPHIA MERINO MA [place] Encounter Template Text not used by [place] Assessments - Encounter Diagnoses This section includes the primary and secondary diagnoses documented for the Encounter. Date/Time Primary/Secondary Diagnosis Diagnosis Name Provider Source May 15, 2024 04:24 PM PRIMARY Iron deficiency anemia, unspecified SOPHIA MERINO MA [facility] May 15, 2024 04:24 PM SECONDARY Anemia, unspecified SOPHIA MERINO MA [facility] May 15, 2024 04:24 PM SECONDARY Gastro-esophageal reflux disease without esophagitis SOPHIA MERINO MA [facility] Plan of Treatment: Future Appointments (+ 6 months) and Future Tests (+/- 45 days) The Plan of Treatment section includes future care activities for the patient [facility] [place] [facility]. This section includes future appointments and future orders which are active, pending or scheduled. Future Appointments This section includes appointments that were scheduled to occur 6 months from the date of the Encounter, up to a maximum of 20 appointments. The data comes from all [facility] facilities. Appointment Date/Time Appointment Type Appointme nt Facility Name May 20, 2024 02:00 PM AMBULATORY - MEDICINE [facility] May 23, 2024 02:00 PM AMBULATORY - MEDICINE [facility] Jun 13, 2024 01:15 PM AMBULATORY - MEDICINE [facility] Jun 17, 2024 12:00 PM AMBULATORY - NONE [facility] Jun 21, 2024 11:00 AM AMBULATORY - MEDICINE [facility] Jun 21, 2024 02:00 PM AMBULATORY - MEDICINE [facility] Jun 28, 2024 03:30 PM AMBULATORY - NONE [facility] Jul 11, 2024 01:30 PM AMBULATORY - MEDICINE [facility] August 01, 2024 01:15 PM AMBULATORY - SURGERY [facility] Sep 05, 2024 01:00 PM AMBULATORY - REHAB MEDICIN [facility] Sep 05, 2024 02:30 PM AMBULATORY - NONE . [facility] Sep 09, 2024 01:00 PM AMBULATORY - REHAB MEDICIN E [facility] Sep 11, 2024 11:00 AM AMBULATORY - REHAB MEDICIN E [facility] Sep 12, 2024 07:30 AM AMBULATORY - NONE . [facility] Sep 12, 2024 07:40 AM AMBULATORY - NONE [facility] Oct 11, 2024 03:30 PM AMBULATORY - REHAB MEDICIN E [facility] Oct 18, 2024 02:00 PM AMBULATORY - MEDICINE [facility] Oct 25, 2024 03:00 [facility] Oct 31, 2024 02:00 PM AMBULATORY - MEDICINE [facility] Active, Pending, and Scheduled Orders This section includes a listing of several types of active, pending, and scheduled orders, including clinic medications orders, diagnostic test orders, procedure orders and consult orders; where the start date of the order is 45 days before the date of the Encounter or 45 days after the date of theEncounter. The data comes from all [place] treatment facilities. Test Date/Time Test Type Test Details Facility Name May 03, 2024 12:00 AM Laboratory - Chemi ganga Order OCCULT BLOOD FIT X1 SCREEN STOOL FECES SP [facility] Lab Results: +/- 30 days of the encounter This section includes the Chemistry and Hematology Lab Results on record with [facility] for the patient. Radiology Reports and Pathology Reports are provided separately, in subsequent sections. Lab Results This section contains the Chemistry/Hematology Results that were resulted 30 days before or 30 daysafter the date of the Encounter. Date/Time Source Result Type Result - Unit Interpretation Reference Range Specimen Type Comment Jun 13, 2024 07:34 AM [facility] GLUCOSE,BLOOD-poct (STL) BLOOD Specimen Type: BLOOD Comment: Test Performed by: [id number] Meter #: [id number] Ordering Provider: TAWANDA MARTINEZ Report Released Date/Time: Jun 13, 2024 07:37 AM Reporting Lab: [facility] [address] [facility] [address] Performing Lab: [facility] [address] [facility] [address] GLUCOSE,BLOOD-poct (STL) 95 mg/dL 72-99 May 21, 2024 06:01 PM [facility] FERRITIN SERUM Specimen Type: SERUM Comment: FE Sat Unable to be calculated Ordering Provider: RAHEL MERINO Report Released Date/Time: May 15, 2024 02:28 PM Reporting Lab: [address] [address] Performing Lab: [address] [address] FERRITIN 1052.99 ng/mL H 22-275 May 21, 2024 06:01 PM [facility] IRON/TIBC PROFILE SERUM Specimen Type: SERUM Comment: FE Sat Unable to be calculated Ordering Provider: RAHEL MERINO Report Released Date/Time: May 15, 2024 02:28 PM Reporting Lab: [address] [address] Performing Lab: [address] [address] TIBC 309 ug/dL 250-450 TRANSFERRIN 247 mg/dL 163-344 IRON SATURATION 45 20-50 IRON 139 ug/dL 65-175 May 21, 2024 06:01 PM [facility] CBC BLOOD Specimen Type: BLOOD No comment entered. Ordering Provider: RAHEL MERINO Report Released Date/Time: May 15, 2024 02:28 PM Reporting Lab: [address] [address] Performing Lab: [address] [address] WBC 7.7 10*3/uL 3.6-11.2 RBC 4.18 10*6/uL [...] YES May 21, 2024 12:08 PM [facility] H.PYLORI AG (STL) FECES Specimen Type: FECES No comment entered. Ordering Provider: ANASTASIA SLOAN Report Released Date/Time: May 20, 2024 02:26 PM Reporting Lab: [address] [address] Performing Lab: [address] [address] H.PYLORI AG (STL) NEGATIVE NEGATIVE May 15, 2024 11:18 AM [facility] FERRITIN SERUM Specimen Type: SERUM No comment entered. Ordering Provider: RAHEL MERINO Report Released Date/Time: May 15, 2024 08:31 AM Reporting Lab: [address] [address] Performing Lab: [address] [address] FERRITIN 9.59 ng/mL L 22-275 May 15, 2024 11:18 AM [facility] IRON/TIBC PROFILE SERUM Specimen Type: SERUM No comment entered. Ordering Provider: RAHEL MERINO Report Released Date/Time: May 15, 2024 08:31 AM Reporting Lab: [address] [address] Performing Lab: [place] [address] [facility] [address] TIBC 368 ug/dL 250-450 TRANSFERRIN 294 mg/dL 163-344 IRON SATURATION 6 L 20-50 IRON 22 ug/dL L 65-175 May 15, 2024 11:18 AM [facility] CBC BLOOD Specimen Type: BLOOD No comment entered. Ordering Provider: RAHEL MERINO Report Released Date/Time: May 15, 2024 08:31 AM Reporting Lab: [address] [address] Performing Lab: [address] [address] WBC 8.4 10*3/uL 3.6-11.2 RBC 4.12 10*6/uL [...] 10*3/uL 2.10-8.00 May 03, 2024 01:36 PM [facility] GLUCOSE,BLOOD-poct (STL) BLOOD Specimen Type: BLOOD Comment: Test Performed by: [id number] Meter #: [id number] Ordering Provider: NANO LEONE Report Released Date/Time: May 03, 2024 03:43 PM Reporting Lab: [address] [address] Performing Lab: [address] [address] GLUCOSE,BLOOD-poct ([facility]) 97 mg/dL 72-99 Vital Signs: All taken on the encounter date This section contains inpatient and outpatient Vital Signs collected on the date of the Encounter. Date/Time Temperature Pulse Blood Pressure Respiratory Rate SP02 Pain Height Weight Body Mass Index Source May 15, 2024 11:22 AM 97.5 95 156/75 20 95 221.6 31 [facility] Social History: Smoking Status (Most current) and Tobacco Use (All prior to encounter date) This section includes the most current, and the historical, smoking and tobacco- related health factors from the [place] facility where the Encounter took place. Current Smoking Status This section includes the most current smoking, or tobacco-related health factor, from the [place] facility where the Encounter took place. Date/Time Current Smoking Status Comment Cari ity Jan 03, 2018 10:12 AM [place]-TOBACCO FORMER USER [facility] Tobacco Use History This section includes a history of the smoking, or tobacco-related health factors, that were collected on or before the date of the Encounter. The data comes from the [place] facility where the Encounter took place. Date/Time Smoking Status/Tobacco Use Comment F [email or web address] a Jan 03, 2018 10:12 AM [place]-TOBACCO QUIT 5 TO < 15 YRS [facility] Encounter Notes: All associated encounter notes This section contains the clinical notes associated to the Encounter. Date/Time Encounter Note(s) Provider Source May 15, 2024 11:06 AM HEMATOLOGY AND ONCOLOGY CONSULT: LOCAL TITLE: HEMATOLOGY ONCOLOGY OUTPATIENT CONSULT [facility] STANDARD TITLE: HEMATOLOGY AND ONCOLOGY CONSULT DATE OF NOTE: MAY 15, 2024@11:06 ENTRY DATE: MAY 15, 2024@11:06:28 AUTHOR: RAHEL MERINO EXP COSIGNER: URGENCY: STATUS: COMPLETED CC: 'long standing iron deficiency anemia, hgb lowest at 9. will try PO iron but historically, oral iron caused GI adverse effects. would appreciate further eval and recommendation'. DIAGNOSIS: Anemia, microcytic, iron deficiency. HPI: Mr. Ramon is a 68 yo AA MALE with hx. of HTN, DM, HLD, multiple abdominal surgery for sbo and lysis, benign adrenal nodules who presents for evaluation of anemia and management with iv iron. He noted to have a gradual Hgb drop from 13.6 in 11/2020 to 8.6 today with low ferritin through out. Historically he tried po iron in the past, stopped it d/t constipation issues. He denies any EGD/colonoscopy in the past, failed to f/u the GI consult he had last year. He denies any melena, BRBPR or hematochezia today. He reports of having occasional constipation, has BM every day. He denies any heart burn,dysphagia, n/v, abdominal pain, regurgitation, or any weight loss. His appetite is good. He feels tired, no sob, no cp,no LH feeling or no palpitations. He has hx. small bowel obstruction, s/p exp.lap with lysis of dense adhesives in 2015 and 2016, also s/p appendectomy. He c/o chronic pain in shoulder,bilateral hip area and numbness feeling on lower extremities. ROS: A 10 point ROS was done per HPI and all systems are negative other than what mentioned above. PMH: 1) Diabetes mellitus (SCT 90530002) - Diabetes mellitus without mention of complica 2) Benign essential hypertension (SCT 2534955) - Benign essential hypertension (ICD 3) Hyperlipidemia (SCT 82389779) - Other and unspecified hyperlipidemia (ICD-9- CM 2 comment: and repair of incisional hernia. 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 Extensive lysis of adhesions greater 14) Hypokalemia 15) Adenoma comment: benign adrenal adenoma ( saw endo and DC to PCP) 16) Gastroesophageal reflux disease 17) Insomnia 18) Acquired pes planus 19) Erectile Dysfunction (SCT [id number]) 20) Exposure to potentially hazardous substance 21) Trochanteric bursitis of right hip 22) Trochanteric bursitis of left hip 23) Obesity Social History: Served in [employer] for 4 yrs, worked different jobs after and retired 4 yrs ago. Live alone, from has 3 children, 9 grand children and 5 great grand children. Denies smoking, ETOH or illicit drug use. Family History: Non contributory. ALLERGIES: Patient has answered NKA MEDICATIONS: Reviewed meds he brought, no discrepancy. 05/15/2024 11:06 CONFIDENTIAL CURRENT HOME MEDS MA SUMMARY pg. 1 SMILEY RAMONN [id number] : 1955 AOPM - Active OutPat Meds 1) GABAPENTIN 100MG CAP TAKE ONE CAPSULE BY MOUTH THREE TIMES A DAY NEEDED FOR NERVE PAIN 2) POTASSIUM CL 20MEQ SA TAB (DISPERSIBLE) TAKE ONE TABLET BY MOUTH TWICE A DAY FOR POTASSIUM SUPPLEMENTATION 3) FERROUS SULFATE 325MG TAB TAKE ONE TABLET BY MOUTH ONCE A DAY FOR IRON DEFICIENCY ANEMIA 4) DICLOFENAC NA 1% TOP GEL APPLY 4 GM TO AFFECTED AREA(S) FOUR TIMES A DAY DO NOT EXCEED MORE 5) PANTOPRAZOLE NA 40MG EC TAB TAKE ONE TABLET BY MOUTH TWICE A DAY FOR GASTROESOPHAGEAL REFLUX 6) TRAZODONE HCL 100MG TAB TAKE THREE TABLETS BY MOUTH AT BEDTIME FOR INSOMNIA 7) HYDROCHLOROTHIAZIDE 25MG TAB TAKE ONE TABLET BY MOUTH ONCE A DAY FOR HIGH BLOOD PRESSURE 8) METHOCARBAMOL 750MG TAB TAKE 1-2 TABLETS BY MOUTH FOUR TIMES A DAY NEEDED FOR MUSCLE 9) TADALAFIL 10MG TAB TAKE ONE TABLET BY MOUTH EVERY WEEK NEEDED FOR ERECTILE DYSFUNCTION 10) ASPIRIN 81MG EC TAB TAKE ONE TABLET BY MOUTH ONCE A DAY FOR CARDIOVASCULAR DISEASE TAKE 11) AMLODIPINE BESYLATE 10MG TAB TAKE ONE TABLET BY MOUTH ONCE A DAY FOR HEART/BLOOD PRESSURE 12) CHOLECALCIF 50MCG (D3-2,000UNIT) TAB TAKE ONE TABLET BY MOUTH ONCE A DAY FOR VITAMIN D DEFICIENCY. 13) METFORMIN HCL 1000MG TAB TAKE ONE-HALF TABLET BY MOUTH TWICE A DAY WITH MEALS FOR BLOOD SUGAR 14) CYANOCOBALAMIN 1000MCG TAB TAKE ONE TABLET BY MOUTH ONCE A DAY FOR VITAMIN B12 SUPPLEMENTATION 15) DICLOFENAC 50MG/MISOPROSTOL 200MCG TAB TAKE 1 TABLET BY MOUTH TWICE DAILY NEEDED FOR OSTEOARTHRITIS WITH Pysical Exam: Reviewed labs and weight from today. GEN: NAD, pleasant, well groomed, coming to clinic self for [place] management. HEENT: NC/AT, MMM LYMPH: No palpable LN CARD: RRR, no m/r/g LUNGS: Clear, no wheezng or crackles. ABD: Flat,soft and hypoactive EXT: No edema, LBKA with prosthetic leg, walks without any support. NEURO: A&Ox3, WHITNEY, no focal deficits PSYCH: Denies any depression, SI or HI. MUSC/SKELE: WNL LABS: Reviewed labs from today and recent past. PSA: PROST. SPECIFIC AG.(PB-STL) 3.320 ng/mL 07/26/2023 14:08 PROST. SPECIFIC AG.(PB-STL) 1.996 ng/mL 07/06/2022 10:39 PROST. SPECIFIC AG.(PB-STL) 1.609 ng/mL 08/09/2021 08:55 PROST. SPECIFIC AG.(PB-STL) 1.144 ng/mL 07/04/2020 11:06 PROST. SPECIFIC AG.(PB-STL) 0.726 ng/mL 08/01/2019 10:28 Imaging: No data available: Assessment and Plan: Mr. Ramon is a 68 yo AA MALE with hx. of HTN, DM, HLD, multiple abdominal surgery for sbo and lysis, benign adrenal nodules who presents for evaluation of anemia and management with iv iron. # Anemia, microcytic, Iron deficiency: Etiology not clear, possible GI loss. - Lab works today with slowly declining Hgb 8.6 with very low ferritin 9.59 and low T.sat 6%. No retic panel done. - Nutritional work up with normal folate and borderline normal B12 267 on 03/13/24. - Other anemia work up with no hemolysis( hapto not done). - FIT test negative on 08/15/23. - No endoscopic work up, GI consult pending( failed to f/u in the past). Plan: - Since remains with very low Hgb, ferriitn and iron saturation will give iv iron today.Ordered 1 gram iron dextran for today. - Continue daily pantoprazole 40 mg BID. - will repeat labs in 5-6 weeks. - F/U with gI # Phone visit on 06/21/24, labs before possibly on 06/19/24. /dayan/ LIMA Guevara,ACNP-BC [employer] [place],HEMATOLOGY/ONCOLOGY Signed: 05/15/2024 16:24 RAHEL MERINO [facility]
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
--- OUTSIDE RECORDS SUMMARY | 2024-09-12 07:21 | XMS_ITS | Encounter Summary ---
Author Name [facility] [place] [facility] Address [address] [place] [address] Care Team Providers Care Linseed Oil Order Filler Name Role Phone NANO LEONE Primary Care [...] PART A Aug 26, 1999 PART A [id number] ROSSI SERRANO RRY PATIENT MEDICARE (WNR) MEDICARE (M) PART A Aug 26, 1999 PART A [id number] [phone] ROSSI SERRANO RRY PATIENT Selected Encounter This section includes the information on record at [place] for the Encounter. Date/Time Encounter Type Encounter Description Reason Provider Source Sep 09, 2024 01:00 PM NDL EMG LMTD STD MUSC 1 XTR EMG - ELECTROMYOGRAM ICD-10-CM G62.9 Polyneuropathy, unspecified NEYDA SORENSON [facility] Encounter Template Text not used by [facility] Assessments - Encounter Diagnoses This section includes the primary and secondary diagnoses documented for the Encounter. Date/Time Primary/Secondary Diagnosis Diagnosis Name Provider Source Sep 09, 2024 04:54 PM PRIMARY Polyneuropathy, unspecified AGUSTIN SORENSON [facility] Sep 09, 2024 04:54 PM SECONDARY Other low back pain AGUSTIN SORENSON [facility] Plan of Treatment: Future Appointments (+ 6 months) and Future Tests (+/- 45 days) The Plan of Treatment section includes future care activities for the patient from [facility] [place] [facility]. This section includes future appointments and future orders which are active, pending or scheduled. Future Appointments This section includes appointments that were scheduled to occur 6 months from the date of the Encounter, up to a maximum of 20 appointments. The data comes from all [facility]. Appointment Date/Time Appointment Type Appointme nt Facility Name Sep 11, 2024 11:00 AM AMBULATORY - REHAB MEDICIN E [facility] Sep 12, 2024 07:30 AM AMBULATORY - NONE [facility] Sep 12, 2024 07:40 AM AMBULATORY - NONE [facility] Oct 11, 2024 03:30 PM [facility] Oct 18, 2024 02:00 PM AM[facility]ULATORY - MEDICINE [facility] Oct 25, 2024 03[facility]00 PM [facility] Oct 31, 2024 02:00 PM AMBULATORY - MEDICINE [facility] Active, Pending, and Scheduled Orders This section includes a listing of several types of active, pending, and scheduled orders, including clinic medications orders, diagnostic test orders, procedure orders and consult orders; where the start date of the order is 45 days before the date of the Encounter or 45 days after the date of theEncounter. The data comes from all [facility]. Test Date/Time Test Type Test Details Facility Name August 01, 2024 02:06 PM Consult Order [facility] Cons Telemarketer Supervisor's Choice [facility] August 01, 2024 02:07 PM Consult Order [facility] Cons Telemarketer Supervisor's [facility] Encounter Notes: All associated encounter notes This section contains the clinical notes associated to the Encounter. Date/Time Encounter Note(s) Provider Source Sep 09, 2024 04:52 PM NEUROLOGY DIAGNOSTIC STUDY REPORT: LOCAL TITLE: EMG REPORT NOTE [facility] STANDARD TITLE: NEUROLOGY DIAGNOSTIC STUDY REPORT DATE OF NOTE: SEP 09, 2024@16:52 ENTRY DATE: SEP 09, 2024@16:52:58 AUTHOR: AVEL SORENSON EXP COSIGNER: URGENCY: STATUS: COMPLETED EMG data for the Nerve Conduction study has been completed Aug. Nerve conduction testing and EMG discussed as well as risks and benefits. [place] consents to continue. Time out done prior to testing with verification of name, , and testing of lower extremities and lumbar paraspinals. Nerve conduction done by Dr. Tiffanie Paula under direct supervision. Review the full report/interpretation located in [employer]. /es/ AVEL SORENSON MD, STAFF ASSOCIATE [employer]UD[employer] Signed: 09/09/2024 16:54 AVEL SORENSON [facility] Sep 09, 2024 02:26 PM ELECTROPHYSIOLOGY DIAGNOSTIC STUDY REPORT: LOCAL TITLE: EMG PROCEDURE REPORT [facility] STANDARD TITLE: ELECTROPHYSIOLOGY DIAGNOSTIC STUDY REPORT DATE OF NOTE: SEP 09, 2024@14:26:15 ENTRY DATE: SEP 09, 2024@14:26:15 AUTHOR: CLINICAL,DEVICE PRO EXP COSIGNER: URGENCY: STATUS: COMPLETED PROCEDURE SUMMARY CODE: Machine Resulted DATE/TIME PERFORMED: SEP 09, 2024@13:19:3 DOCUMENT IN VISTA IMAGING SEE FULL REPORT IN VISTA IMAGING SIGNATURE NOT REQUIRED SEE SIGNATURE IN VISTA IMAGING Administrative Closure: 09/09/2024 by: CLINICAL,DEVICE PROXY SERVICE CLINICAL,DEVICE PROXY SERVICE [facility]
--- OUTSIDE RECORDS SUMMARY | 2024-09-12 07:21 | XMS_ITS | Encounter Summary ---
Author Name [facility] Organization [facility] Address [address] [place] [address] Care Team Providers Care Senior Architectural Designer Name Role Phone NANO LEONE Primary Care [...] PART A Aug 26, 1999 PART A [id number] ZACHROSSI RRChetan PATIENT MEDICARE (WNR) MEDICARE (M) PART A Aug 26, 1999 PART A [id number] ROSSI SERRANO RRChetan PATIENT Selected Encounter This section includes the information on record at NH for the Encounter. Date/Time Encounter Type Encounter Description Reason Provider Source May 15, 2024 11:30 AM NORMAL SALINE SOLUTION INFUS CHEMOTHERAPY PROC. UNIT-MED. ICD-10-CM D50.9 Iron deficiency anemia, unspecified Milvia LOCKE Tasha Encounter Template Text not used by [place] Assessments - Encounter Diagnoses This section includes the primary and secondary diagnoses documented for the Encounter. Date/Time Primary/Secondary Diagnosis Diagnosis Name Provider Source May 15, 2024 02:15 PM PRIMARY Iron deficiency anemia, unspecified CHUCKY, HLEE J [facility] Plan of Treatment: Future Appointments (+ 6 months) and Future Tests (+/- 45 days) The Plan of Treatment section includes future care activities for the patient [facility] This section includes future appointments and future orders which are active, pending or scheduled. Future Appointments This section includes appointments that were scheduled to occur 6 months from the date of the Encounter, up to a maximum of 20 appointments. The data comes from all [facility]. Appointment Date/Time Appointment Type Appointme nt Facility Name May 20, 2024 02:00 PM AMBULATORY - MEDICINE [facility] May 23, 2024 02:00 PM AMBULATORY - MEDICINE [facility] Jun 13, 2024 01:15 PM AMBULATORY - MEDICINE [facility] Jun 17, 2024 12:00 PM AMBULATORY - NONE [facility] Jun 21, 2024 11:00 AM AMBULATORY - MEDICINE [facility] Jun 21, 2024 02:00 PM AMBULATORY - MEDICINE [facility] Jun 28, 2024 03:30 PM AMBULATORY - NONE [facility] Jul 11, 2024 01:30 PM AMBULATORY - MEDICINE [facility] August 01, 2024 01:15 PM AMBULATORY - SURGERY [facility] Sep 05, 2024 01:00 PM AMBULATORY - REHAB MEDICIN E [facility] Sep 05, 2024 02:30 PM AMBULATORY - NONE [facility] Sep 09, 2024 01:00 PM AMBULATORY - REHAB MEDICIN E [facility] Sep 11, 2024 11:00 AM AMBULATORY - REHAB MEDICIN E [facility] Sep 12, 2024 07:30 AM AMBULATORY - NONE . [facility] Sep 12, 2024 07:40 AM AMBULATORY - NONE [facility] Oct 11, 2024 03:30 PM AMBULATORY - REHAB MEDICIN E [facility] Oct 18, 2024 02:00 PM AMBULATORY - MEDICINE [facility] Oct 25, 2024 03:00 PM AMBULATORY - REHAB MEDICIN E [facility] Oct 31, 2024 02:00 PM AMBULATORY - MEDICINE [facility] Active, Pending, and Scheduled Orders This section includes a listing of several types of active, pending, and scheduled orders, including clinic medications orders, diagnostic test orders, procedure orders and consult orders; where the start date of the order is 45 days before the date of the Encounter or 45 days after the date of theEncounter. The data comes from all [place] treatment facilities. Test Date/Time Test Type Test Details Facility Name May 03, 2024 12:00 AM Laboratory - Chemi stry Order OCCULT BLOOD FIT X1 SCREEN STOOL FECES SP [facility] Lab Results: +/- 30 days of [...] Type Comment Jun 13, 2024 07:34 AM [facility] GLUCOSE,BLOOD-poct (STL) BLOOD Specimen Type: BLOOD Comment: Test Performed by: [id number] Meter #: [id number] Ordering Provider: TAWANDA MARTINEZ Report Released Date/Time: Jun 13, 2024 07:37 AM Reporting Lab: [facility] [address] [facility] [address] Performing Lab: [facility] [address] [facility] [address] GLUCOSE,BLOOD-poct (STL) 95 mg/dL 72-99 May 21, 2024 06:01 PM [facility] FERRITIN SERUM Specimen Type: SERUM Comment: FE Sat Unable to be calculated Ordering Provider: RAHEL MERINO Report Released Date/Time: May 15, 2024 02:28 PM Reporting Lab: [facility] [address] Performing Lab: [facility] [address] FERRITIN 1052.99 ng/mL H 22-275 May 21, 2024 06:01 PM [facility] IRON/TIBC PROFILE SERUM Specimen Type: SERUM Comment: FE Sat Unable to be calculated Ordering Provider: RAHEL MERINO Report Released Date/Time: May 15, 2024 02:28 PM Reporting Lab: [address] [address] Performing Lab: [address] [address] TIBC 309 ug/dL 250-450 TRANSFERRIN 247 mg/dL 163-344 IRON SATURATION 45 20-50 IRON 139 ug/dL 65-175 May 21, 2024 06:01 PM [facility] CBC BLOOD Specimen Type: BLOOD No comment entered. Ordering Provider: RAHEL MERINO Report Released Date/Time: May 15, 2024 02:28 PM Reporting Lab: [address] [address] Performing Lab: [address] [address] WBC 7.7 10*3/uL 3.6-11.2 RBC 4.18 10*6/uL [...] SCRNPERF YES May 21, 2024 12:08 PM [facility] H.PYLORI AG (STL) FECES Specimen Type: FECES No comment entered. Ordering Provider: ANASTASIA SLOAN Report Released Date/Time: May 20, 2024 02:26 PM Reporting Lab: [address] [address] Performing Lab: [address] [address] H.PYLORI AG (STL) NEGATIVE NEGATIVE May 15, 2024 11:18 AM [facility] FERRITIN SERUM Specimen Type: SERUM No comment entered. Ordering Provider: RAHEL MERINO Report Released Date/Time: May 15, 2024 08:31 AM Reporting Lab: [address] [address] Performing Lab: [address] [address] FERRITIN 9.59 ng/mL L 22-275 May 15, 2024 11:18 AM [facility] IRON/TIBC PROFILE SERUM Specimen Type: SERUM No comment entered. Ordering Provider: RAHEL MERINO Report Released Date/Time: May 15, 2024 08:31 AM Reporting Lab: [address] [address] Performing Lab: [address] [address] TIBC 368 ug/dL 250-450 TRANSFERRIN 294 mg/dL 163-344 IRON SATURATION 6 L 20-50 IRON 22 ug/dL L 65-175 May 15, 2024 11:[address] [facility] CBC BLOOD Specimen Type: BLOOD No comment entered. Ordering Provider: RAHEL MERINO Report Released Date/Time: May 15, 2024 08:31 AM Reporting Lab: [facility] [address] [facility] [address] Performing Lab: [facility] [address] [place] [address] WBC 8.4 10*3/uL 3.6-11.2 RBC 4.12 10*6/uL [...] 10*3/uL 2.10-8.00 May 03, 2024 01:36 PM [facility] GLUCOSE,BLOOD-poct (STL) BLOOD Specimen Type: BLOOD Comment: Test Performed by: [id number] Meter #: [id number] Ordering Provider: NANO LEONE Report Released Date/Time: May 03, 2024 03:43 PM Reporting Lab: [address] [address] Performing Lab: [facility] [address] [place] [address] GLUCOSE,BLOOD-poct (ST) 97 mg/dL 72-99 Vital Signs: All taken on the encounter date This section contains inpatient and outpatient Vital Signs collected on the date of the Encounter. Date/Time Temperature Pulse Blood Pressure Respiratory Rate SP02 Pain Height Weight Body Mass Index Source May 15, 2024 11:22 AM 97.5 95 156/75 20 95 221.6 31 [facility] Social History: Smoking Status (Most current) and Tobacco Use (All prior to encounter date) This section includes the most current, and the historical, smoking and tobacco- related health factors from the [place] facility where the Encounter took place. Current Smoking Status This section includes the most current smoking, or tobacco-related health factor, from the [place] facility where the Encounter took place. Date/Time Current Smoking Status Comment Facil ity Jan 03, 2018 10:12 AM NH-TOBACCO FORMER USER [facility] Tobacco Use History This section includes a history of the smoking, or tobacco-related health factors, that were collected on or before the date of the Encounter. The data comes from the [place] facility where the Encounter took place. Date/Time Smoking Status/Tobacco Use Comment F acmiguel a Jan 03, 2018 10:12 AM NH-TOBACCO QUIT 5 TO < 15 YRS [facility] Encounter Notes: All associated encounter notes This section contains the clinical notes associated to the Encounter. Date/Time Encounter Note(s) Provider Source May 15, 2024 02:10 PM HEMATOLOGY AND ONC OLOGY NURSING NOTE: LOCAL TITLE: [facility] ST[facility] TITLE: HEMATOLOGY AND ONCOLOGY NURSING NOTE DATE OF NOTE: MAY 15, 2024@14:10 ENTRY DATE: MAY 15, 2024@14:10:51 AUTHOR: ROSANNE LOCKE COSIGNER: URGENCY: STATUS: COMPLETED STL HEMATOLOGY/ONCOLOGY Patient Demographics Patient name:SMILEY SERRANO Date of :[birth year] Age:68 Social security number:[id number] Patient has answered NKA Vital signs: BP:156/75 (05/15/2024 11:22) HR:95 (05/15/2024 11:22) R :20 (05/15/2024 11:22) T.:97.5 F [36.4 C] (05/15/2024 11:22) Pulse Oximetry:95% (05/15/2024 11:22) Pain:0 SMILEY SERRANO, an 68 year old MALE with iron deficiency anemia presents to clinic for IV iron. NOTE:Patient presents for first dose iron, no complaints. Reviewed possible side effects with patient. IV ACCESS: ROUTE OF ADMINISTRATION: Peripheral IV placed right Antecubital 22 Intravenous Guage catheter, brisk blood return present, flushes without resistance. TREATMENT: 0.9%NS 500 mL to run concurrently. Start: 1225 end time: 1415 Iron Dextran (INFeD) 25mg IVP over 1 min given at 1235 Observe Patient for 30 minutes following test dose Tolerated infusions well. Patient was observed 30 minute following test without sensitivity reaction. No complications occurred during obersvation following test dose. Patient denied any pain, nausea, shortness of breath or other distress during treatment. The patient's physical and mental status remains unchanged pre and post treatment. Iron Dextran (INFeD) 975mg infused over 1 hour. Start:1310 end time:1410 Tolerated treatment well. Left ambulatory, RTC 06/21/2024. The patient's physical and mental status remains unchanged pre and post treatment. Post treatment IV evaluation IV access IV discontinued Pressure dressing applied /es/ ROSANNE LOCKE RN BSN REGISTERED NURSE Signed: 05/15/2024 14:15 ROSANNE LOCKE [facility]
--- OUTSIDE RECORDS SUMMARY | 2024-09-12 07:21 | XMS_ITS | Clinical Summary ---
Author Organization [facility] Address [address] [place] [address] Care Team Providers Care Lint Cleaner Name Role Phone Unknown, Notinfile Primary Care [...] on file Legal Sex Male 11:57 PM TEST TECH Gender Identity Not on file Sexual Orientation Not on file Obstetrics History Last Filed Vital Signs Vital Sign Reading Time Taken Comments Blood Pressure 156/89 02/24/2022 7:42 AM TEST TECH Pulse 80 02/24/2022 7:42 AM TEST TECH Temperature 36.8 C (98.3 F) 02/24/2022 7:42 AM TEST TECH Respiratory Rate 16 02/24/2022 4:00 AM TEST TECH Oxygen Saturation 95% 02/24/2022 7:42 AM TEST TECH Inhaled Oxygen Concentration - - Weight 108.3 kg (238 lb 12.1 oz) 02/20/2022 5:10 PM TEST TECH Height 180.3 cm (5' 11) 02/20/2022 5:10 PM TEST TECH Body Mass Index 33.3 02/20/2022 5:10 PM TEST TECH Plan of Treatment Health Maintenance Due Date Last Done Comments Colon Cancer Screening-Colonoscopy 1955 Depression Screening 1955 Hepatitis C Screening 1955 Prostate Cancer Screening-PSA 1956 DTaP/Tdap/Td Vaccine (1 - Tdap) 08/13/1967 Hepatitis B Screening 1974 Pneumococcal vaccine 65+ (1 of 1 - PCV) 2006 Zoster Vaccine (1 of 2) 2006 Well Visit 65+ 2021 Fall Risk Assessment 02/24/2023 02/24/2022 Influenza Vaccine (Season Ended) 2024 Abdominal Aortic Aneurysm (A AA) Screen Completed 02/20/2022, 09/09/2016, 08/30/2016 Procedures Procedure Name Priority Date/Time Associated Diagnosis Comments CT ABDOMEN PELVIS W CONTRAST ED 02/20/2022 10:37 AM TEST TECH from Last 3 Months or Most Recently Relevant to Health Maintenance Results * CT Abdomen Pelvis W Contrast (02/20/2022 10:37 AM TEST TECH) Anatomical Region Laterality Modality Body N/A Computed Tomogra phy 02/20/2022 11:0 0 AM TEST TECH Narrative 02/20/2022 11:18 AM TEST TECH EXAM DESCRIPTION: CT ABDOMEN PELVIS W CONTRAST [...] Findings Committee. J Am Sanjeev Radiol. 2017 Oct;14(8):7739-7862. THIS IS AN ELECTRONICALLY VERIFIED FINAL REPORT 02/20/2022 11:18 AM - Electronically signed by Azar WEBB T: Report ID: [id number] Reading Location: [place] [address] Procedure Note Azar Martinez MD - 02/20/2022 [...] Findings Committee. J Am Sanjeev Radiol. 2017 Oct;14(8):9385-2595. THIS IS AN ELECTRONICALLY VERIFIED FINAL REPORT 02/20/2022 11:18 AM - Electronically signed by Azar Martinez M.D. T: Report ID: [id number] Reading Location: [place] [address] PROCEDURES Final Resul t from Last 3 Months or Most Recently Relevant to Health Maintenance Insurance MEDICARE ([address] [id number] MEDICARE Advance Directives For more information, please contact: [phone] * Full Code (Latest Code Status on File) Date Activated Date Inactivated Comments 02/20/2022 3:37 PM 02/24/2022 4:29 PM Care Teams Lint Cleaner Relationship Specialty Start Date End Date Unknown, Mariselanfsadiq PCP - General 02/20/22
--- OUTSIDE RECORDS SUMMARY | 2024-09-12 07:21 | XMS_ITS | Continuity of Care Document ---
Author Name [facility] Organization [facility] Care Team Providers Care Proofsheet Corrector Name Role Phone [facility] Unavailable Unavailable Problems Combined list of problems from Department of Defense and Veterans Affairs facilities. It does not include entries that were removed or entered in error. 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 [facility] Ankle pain Active Condition [facility] Benign essential hypertension Active Condition [facility] Benign essential hypertension (SCT 9198847) - Benign essential hypertension (ICD Active Condition [facility] 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 (SNOMED CT 48909451) Active Condition [facility] Diabetes mellitus (SCT 28221422) - Diabetes mellitus without mention of complica Active Condition [facility] Erectile Dysfunction (SCT 845055966) Active Condition [facility] Exposure to potentially hazardous substance Active Condition [facility] Gastroesophageal reflux disease Active Condition [facility] Gastroesophageal Reflux Disease (SCT 763504105) - Esophageal reflux (ICD-9-CM 53 Active Condition [facility] Hip Pain Active Condition [facility] Hyperlipidemia Active Condition [facility] Hyperlipidemia (SCT 75225311) - Other and unspecified hyperlipidemia (ICD-9-CM 2 Active Condition Jan 01, 2016 Entered By: CHADD PACHECO Comment: and repair of incisional hernia. [facility] Hypokalemia Active Condition [facility] Insomnia Active Condition [facility] Iron deficiency anemia Active Condition [facility] Obesity Active Condition [facility] Small bowel obstruction Active Condition Jan 01, 2016 Entered By: CHADD PACHECO Comment: 12/10/15 [facility]: exploratory laparotomy with lysis of dense adhesions (greater than 1.5 hr of lysis of adhesions with mobilization of small bowel segment ( ~ 15 inches) with appendectomySep 06, 2016 Entered By: CHADD PACHECO Comment: 08/30/16 [facility]. 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 Active Condition [facility] Diagnosis: ICD-10-CM M54.2 Cervicalgia Active Diagnosis [facility] Diagnosis: ICD-10-CM G62.9 Polyneuropathy, unspecified Active Diagnosis [facility] Diagnosis: ICD-10-CM Z13.5 Encounter for screening for eye and ear disorders Active Diagnosis [facility] Diagnosis: ICD-10-CM M54.12 Radiculopathy, cervical region Active Diagnosis [facility] Diagnosis: ICD-10-CM E11.9 Type 2 diabetes mellitus without complications Active Diagnosis [facility] Diagnosis: ICD-10-CM D50.9 Iron deficiency anemia, unspecified Active Diagnosis [facility] Diagnosis: ICD-10-CM Z46.89 Encounter for fitting and adjustment of oth devices Active Diagnosis [facility] Diagnosis: ICD-10-CM Z01.818 Encounter for other preprocedural examination Active Diagnosis [facility] Diagnosis: ICD-10-CM G47.00 Insomnia, unspecified Active Diagnosis [facility] Diagnosis: ICD-10-CM I10 Essential (primary) hypertension Active Diagnosis [facility] Diagnosis: ICD-10-CM R26.81 Unsteadiness on feet Active Diagnosis [facility] Diagnosis: ICD-10-CM R25.1 Tremor, unspecified Active Diagnosis Damaris BERRIOS [facility] Diagnosis: ICD-10-CM S88.112D Complete traum amp at lev betw kn and ankl, l low leg, subs Active Diagnosis [facility] Diagnosis: ICD-10-CM M70.60 Trochanteric bursitis, unspecified hip Active Diagnosis [facility] Diagnosis: ICD-10-CM M70.61 Trochanteric bursitis, right hip Active Diagnosis [facility] Diagnosis: ICD-10-CM Z89.512 Acquired absence of left leg below knee Active Diagnosis [facility] Medications Combined list of outpatient medications from Department of Defense and Veterans Affairs facilities.Medications provided include 1) outpatient medications from the last 15 months, and 2) patient-reported medications. Medication Details Route Status Patient Instructions Prescription Expires Prescription Number Last Dispense Date Ordering Provider Order Date Order Qty Source AMLODIPINE BESYLATE 10MG TAB TAKE ONE TABLET BY MOUTH ONCE A DAY FOR HEART/BL OOD PRESSURE ORAL ACTIVE 03/13/2025 [id number] 5 LEONE,A RMIDA A 2024 90 [facility] AMLODIPINE BESYLATE 10MG TAB TAKE ONE TABLET BY MOUTH ONCE A DAY FOR HEART/BL OOD PRESSURE ORAL DISCONT INUED 07/04/2024 [id number] 4 LEONE,A RMIDA A 2023 90 [facility] ASPIRIN 81MG TAB,EC TAKE ONE TABLET BY MOUTH ONCE A DAY FOR CARDIOVA SCULAR DISEASE TAKE WITH FOOD. ORAL ACTIVE 03/09/2025 [id number] 5 LEONE,A RMIDA A 2023 120 [facility] ASPIRIN 81MG TAB,EC TAKE ONE TABLET BY MOUTH ONCE A DAY FOR CARDIOVA SCULAR DISEASE TAKE WITH FOOD. ORAL DISCONT INUED 03/03/2024 [id number] LEONE,A RMIDA A 2022 120 [facility] BISACODYL 5MG TAB,EC TAKE TWO TABLETS BY MOUTH ONE TIME TAKE BISACODY L TABLETS AT 4PM ON AFTERNOO N PRIOR TO TEST. CALL WITH ANY QUESTION S ABOUT THESE INSTRUCT IONS. MAIL TAKE BISACODY L TABLETS AT 4PM ON AFTERNOO N PRIOR TO TEST. CALL WITH ANY QUESTION S ABOUT THESE INSTRUCT IONS. MAIL ORAL DISCONT INUED 06/19/2024 [id number] 5 Marcus SLOAN ATTHEW L 2024 2 [facility] CELECOXIB 100MG CAP TAKE ONE CAPSULE BY MOUTH TWICE DAILY NEEDED FOR OSTEOART HRITIS TAKE WITH FOOD. ORAL DISCONT INUED BY PROVIDE R 10/24/2023 [id number] 4 LEONE,A RMIDA A 2023 180 [facility] CHOLECALCIF CAROLE 50MCG (2,000UNIT) TAB TAKE ONE TABLET BY MOUTH ONCE A DAY FOR VITAMIN D DEFICIEN CY. ORAL ACTIVE 03/13/2025 [id number] 5 LEONE,A RMIDA A 2023 100 [facility] CHOLECALCIF CAROLE 50MCG (2,000UNIT) TAB TAKE ONE TABLET BY MOUTH ONCE A DAY FOR VITAMIN D DEFICIEN CY. ORAL DISCONT INUED 01/06/2024 [id number] 4 LEONE,A RMIDA A 2022 100 [facility] CYANOCOBALA MIN 1000MCG TAB TAKE ONE TABLET BY MOUTH ONCE A DAY FOR VITAMIN B12 SUPPLEME NTATION ORAL SUSPEND ED 05/04/2025 [id number] 5 LEONE,A RMIDA A 2024 100 [facility] DIAZEPAM 5MG TAB TAKE ONE TABLET BY MOUTH TWICE DAILY NEEDED FOR ANXIETY AVOID TAKING WITH GRAPEFRU IT JUICE. TAKE 1 TABLET 30 MINUTES BEFORE MYELOGRA M AND BEFORE EMG. REPEAT X1 AFTER 30 MINUTES PRIOR TO EACH TEST IF NEEDED. AVOID TAKING WITH GRAPEFRU IT JUICE. TAKE 1 TABLET 30 MINUTES BEFORE MYELOGRA M AND BEFORE EMG. REPEAT X1 AFTER 30 MINUTES PRIOR TO EACH TEST IF NEEDED. ORAL 08/31/2024 [id number] 5 Milvia LIU CHRISTOPH L 2024 4 [facility] DICLOFENAC NA 1% GEL,TOP APPLY 2 GM TO AFFECTED AREA(S) FOUR TIMES A DAY FOR PAIN DO NOT EXCEED MORE THAN 16 GRAMS DAILY TO ANY LOWER EXTREMIT Y JOINT. NOT MORE THAN 8 GRAMS DAILY TO ANY UPPER EXTREMIT Y JOINT. MAX 32GM/DAY OVER ALL JOINTS. (MEASURE DOSE WITH RULER ATTACHED INSIDE BOX) JUAN J L DISCONT INUED BY PROVIDE R 04/21/2024 [id number] 4 LEONE,A RMIDA A 2023 100 [facility] DICLOFENAC NA 1% GEL,TOP APPLY 4 GM TO AFFECTED AREA(S) FOUR TIMES A DAY DO NOT EXCEED MORE THAN 16 GRAMS DAILY TO ANY LOWER EXTREMIT Y JOINT. NOT MORE THAN 8 GRAMS DAILY TO ANY UPPER EXTREMIT Y JOINT. MAX 32GM/DAY OVER ALL JOINTS. (MEASURE DOSE WITH RULER ATTACHED INSIDE BOX) IAMA L 09/04/2024 [id number] Lara GALAVIZ W 2023 300 [facility] DICLOFENAC NA 50MG/MISOPR OSTOL 200MCG TAB TAKE 1 TABLET BY MOUTH TWICE DAILY NEEDED FOR OSTEOART HRITIS WITH FOOD ORAL ACTIVE 08/08/2025 [id number] 5 LEONE,A RMIDA A 2024 60 [facility] DICLOFENAC NA 50MG/MISOPR OSTOL 200MCG TAB TAKE 1 TABLET BY MOUTH TWICE DAILY NEEDED FOR OSTEOART HRITIS WITH FOOD ORAL DISCONT INUED 05/04/2025 [id number] 5 LEONE,A RMIDA A 2024 60 [facility] FAMOTIDINE 20MG TAB TAKE ONE TABLET BY MOUTH TWICE DAILY NEEDED FOR BREAKTHR OUGH FOR GASTROES OPHAGEAL REFLUX DISEASE ORAL 01/02/2024 [id number] 4 LEONE,A RMIDA A 2023 180 [facility] FERROUS SO4 325MG TAB TAKE ONE TABLET BY MOUTH ONCE A DAY FOR IRON DEFICIEN CY ANEMIA ORAL SUSPEND ED 11/24/2024 [id number] 5 LEONE,A RMIDA A 2024 100 [facility] FERROUS SO4 325MG TAB TAKE ONE TABLET BY MOUTH ONCE A DAY FOR IRON DEFICIEN CY ANEMIA ORAL DISCONT INUED 11/18/2024 [id number] 5 LEONE,A RMIDA A 2024 100 [facility] FERROUS SO4 325MG TAB TAKE ONE TABLET BY MOUTH ONCE A DAY FOR IRON DEFICIEN CY ANEMIA ORAL DISCONT INUED 08/01/2024 [id number] 5 LEONE,A RMIDA A 2024 100 [facility] GABAPENTIN 100MG CAP TAKE ONE CAPSULE BY MOUTH THREE TIMES A DAY NEEDED FOR NERVE PAIN ORAL SUSPEND ED 06/07/2025 [id number] 5 LEONE,A RMIDA A 2024 270 [facility] GABAPENTIN 100MG CAP TAKE ONE CAPSULE BY MOUTH THREE TIMES A DAY NEEDED FOR NERVE PAIN ORAL DISCONT INUED 06/02/2024 [id number] 5 LEONE,A RMIDA A 2024 90 [facility] HYDROCHLORO THIAZIDE 25MG TAB TAKE ONE TABLET BY MOUTH ONCE A DAY FOR HIGH BLOOD PRESSURE ORAL ACTIVE 01/10/2025 [id number] 5 LEONE,A RMIDA A 2023 90 [facility] HYDROCHLORO THIAZIDE 25MG TAB TAKE ONE TABLET BY MOUTH ONCE A DAY FOR HIGH BLOOD PRESSURE ORAL DISCONT INUED 01/31/2024 [id number] LEONE,A RMIDA A 2022 90 [facility] MAGNESIUM OXIDE 400MG TAB TAKE ONE TABLET BY MOUTH TWICE A DAY ORAL DISCONT INUED 01/06/2024 [id number] 4 LEONE,A RMIDA A 2022 120 [facility] MAGNESIUM OXIDE 400MG TAB TAKE ONE TABLET BY MOUTH TWICE A DAY ORAL 01/06/2024 [id number] 4 LEONE,A RMIDA A 2023 240 [facility] METFORMIN HCL 1000MG TAB TAKE ONE-HALF TABLET BY MOUTH TWICE A DAY WITH MEALS FOR BLOOD SUGAR CONTROL. TAKE WITH FOOD. AVOID ALCOHOL. DISCONTI NUE BEFORE GETTING XRAY DYE. ORAL SUSPEND ED 03/13/2025 [id number] 5 LEONE,A RMIDA A 2023 90 [facility] METFORMIN HCL 1000MG TAB TAKE ONE-HALF TABLET BY MOUTH TWICE A DAY WITH MEALS FOR BLOOD SUGAR CONTROL. TAKE WITH FOOD. AVOID ALCOHOL. DISCONTI NUE BEFORE GETTING XRAY DYE. ORAL DISCONT INUED 07/04/2024 [id number] 4 LEONE,A RMIDA A 2023 90 [facility] METHOCARBAM OL 750MG TAB TAKE 1-2 TABLETS BY MOUTH FOUR TIMES A DAY NEEDED FOR MUSCLE RELAXANT ORAL ACTIVE 01/30/2025 [id number] 4 LEONE,A RMIDA A 2023 120 [facility] METHOCARBAM OL 750MG TAB TAKE 1-2 TABLETS BY MOUTH FOUR TIMES A DAY NEEDED FOR MUSCLE RELAXANT ORAL DISCONT INUED 07/10/2024 [id number] 4 LEONE,A RMIDA A 2023 120 [facility] PANTOPRAZOL E NA 40MG TAB,EC TAKE ONE TABLET BY MOUTH TWICE A DAY FOR GASTROES OPHAGEAL REFLUX DISEASE TAKE 30 MINUTES BEFORE MEAL(S) ORAL SUSPEND ED 09/10/2025 [id number] 5 LEONE,A RMIDA A 2024 180 [facility] PANTOPRAZOL E NA 40MG TAB,EC TAKE ONE TABLET BY MOUTH TWICE A DAY FOR GASTROES OPHAGEAL REFLUX DISEASE TAKE 30 MINUTES BEFORE MEAL(S) ORAL DISCONT INUED 11/24/2024 [id number] 5 LEONEA RMIDA A 2024 180 [facility] PANTOPRAZOL E NA 40MG TAB,EC TAKE ONE TABLET BY MOUTH TWICE A DAY FOR GASTROES OPHAGEAL REFLUX DISEASE TAKE 30 MINUTES BEFORE MEAL(S) ORAL DISCONT INUED 10/04/2024 [id number] 5 LEONEA RMIDA A 2023 180 [facility] PANTOPRAZOL E NA 40MG TAB,EC TAKE ONE TABLET BY MOUTH TWICE A DAY TO LOWER STOMACH ACID - TAKE 30 MINUTES BEFORE MEAL(S) ORAL DISCONT INUED BY PROVIDE R 07/10/2024 [id number] 4 LEONEA RMIDA A 2023 180 [facility] PEG-3350/EL ECTROLYTES PWDR MIX AND DRINK CONTENTS OF BOTTLE BY MOUTH DIRECTED (THE DAY BEFORE YOUR TEST ONLY DRINK CLEAR LIQUIDS- NO SOLID FOOD! TAKE THE BISACODY L TABLETS AT 4PM AND MIX THE GOLYTELY WITH WATER AND REFRIGER ATE. AT 7PM DRINK HALF OF THE GOLYTELY . REFRIGER ATE OVERNIGH T. COMPLETE GOLYTELY 3 HRS BEFORE LEAVING HOME FOR TEST. READ YOUR INSTRUCT IONS!) (THE DAY BEFORE YOUR TEST ONLY DRINK CLEAR LIQUIDS- NO SOLID FOOD! TAKE THE BISACODY L TABLETS AT 4PM AND MIX THE GOLYTELY WITH WATER AND REFRIGER ATE. AT 7PM DRINK HALF OF THE GOLYTELY . REFRIGER ATE OVERNIGH T. COMPLETE GOLYTELY 3 HRS BEFORE LEAVING HOME FOR TEST. READ YOUR INSTRUCT IONS!) ORAL DISCONT INUED 06/19/2024 [id number] Marcus SLOAN ATTNOHEMI L 2024 1 [facility] POTASSIUM CHLORIDE 20MEQ TAB,SA (DISPERSIBL E) TAKE ONE TABLET BY MOUTH TWICE A DAY FOR ROSALBA M SUPPLEME NTATION TAKE WITH FOOD ORAL DISCONT INUED 03/10/2024 [id number] 4 LEONEA RMIDA A 2023 180 [facility] POTASSIUM CHLORIDE 20MEQ TAB,SA (DISPERSIBL E) TAKE ONE TABLET BY MOUTH TWICE A DAY FOR POTASSIU M SUPPLEME NTATION TAKE WITH FOOD ORAL DISCONT INUED 12/11/2024 [id number] 4 LEONE,A RMIDA A 2023 60 [facility] POTASSIUM CHLORIDE 20MEQ TAB,SA (DISPERSIBL E) TAKE ONE TABLET BY MOUTH TWICE A DAY FOR POTASSIU M SUPPLEME NTATION TAKE WITH FOOD ORAL DISCONT INUED 08/07/2024 [id number] 4 LEONE,A RMIDA A 2023 60 [facility] POTASSIUM CHLORIDE 20MEQ TAB,SA (DISPERSIBL E) TAKE ONE TABLET BY MOUTH TWICE A DAY FOR POTASSIU M SUPPLEME NTATION TAKE WITH FOOD ORAL DISCONT INUED 03/23/2024 [id number] 4 LEONE,A RMIDA A 2022 60 [facility] POTASSIUM CHLORIDE 20MEQ TAB,SA (DISPERSIBL E) TAKE ONE TABLET BY MOUTH TWICE A DAY FOR POTASSIU M SUPPLEME NTATION TAKE WITH FOOD ORAL 06/10/2024 [id number] 5 LEONE,A RMIDA A 2024 180 [facility] SIMETHICONE 80MG TAB,CHEW CHEW AND SWALLOW FOUR TABLETS BY MOUTH DIRECTED FOR GAS DISCOMFO RT FOR TWO DOSES BEFORE GI PROCEDUR E ORAL DISCONT INUED 06/19/2024 [id number] Marcus SLOAN L 2024 8 [facility] GUT[facility] N TADALAFIL 10MG TAB TAKE ONE TABLET BY MOUTH EVERY WEEK NEEDED FOR ERECTILE DYSFUNCT ION (TAKE 30 MINUTES PRIOR TO SEXUAL ACTIVITY ) - LIMIT 6 DOSES PER 30 DAYS ORAL SUSPEND ED 03/05/2025 [id number] 5 LEONE,A RMIDA A [address] [facility] TADALAFIL 10MG TAB TAKE ONE TABLET BY MOUTH EVERY WEEK NEEDED FOR ERECTILE DYSFUNCT ION (TAKE 30 MINUTES PRIOR TO SEXUAL ACTIVITY ) - LIMIT 6 DOSES PER 30 DAYS ORAL DISCONT INUED 05/31/2024 [id number] 4 LEONEA RMIDA A 2023 18 [facility] TRAZODONE HCL 100MG TAB TAKE THREE TABLETS BY MOUTH AT BEDTIME ORAL ACTIVE 05/24/2025 [id number] LEONE,A RMIDA A 2024 270 [facility] TRAZODONE HCL 100MG TAB TAKE THREE TABLETS BY MOUTH AT BEDTIME FOR INSOMNIA ORAL DISCONT INUED (EDIT) 12/27/2024 [id number] 4 LEONE,A RMIDA A 2023 270 [facility] TRAZODONE HCL 100MG TAB TAKE THREE TABLETS BY MOUTH AT BEDTIME FOR INSOMNIA ORAL DISCONT INUED (EDIT) 04/21/2024 [id number] 4 LEONE,A RMIDA A 2023 270 [facility] Immunizations Combined list of available immunizations from the Department of Defense and Veterans Affairs facilities. 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 Status Comments Source COVID-19 (PFIZER), MRNA, LNP-S, PF, RODOLFO-SUCROSE, 30 MCG/0.3 ML (AGES 12+ YEARS) 2024 ARAVIND HUMMEL S RIGHT DELTO ID [id number] 309 complet ed ADMINISTE RED AT [facility] INFLUENZA, HIGH-DOSE, TRIVALENT, PF 2024 ARAVIND HUMMEL S RIGHT DELTO ID [id number] 135 complet ed ADMINISTE RED AT [facility] COVID-19 (MODERNA), MRNA, LNP-S, PF, 50 MCG/0.5 ML (AGES 12+ YEARS) 1 2022 KATHLEEN HAM LEFT DELTO ID [id number] 312 complet ed ADMINISTE RED AT [facility] INFLUENZA, HIGH-DOSE, QUADRIVALENT 2022 KATHLEEN HAM LEFT DELTO ID [id number] A 197 complet ed Completed Series, [place], [facility] COVID-19 (MODERNA), MRNA, LNP-S, PF, 100 MCG/0.5ML DOSE OR 50 MCG/0.25ML DOSE 2021 207 complet ed Booster for Series, MOD; [id number]; 2 [facility] ZOSTER RECOMBINANT 2 2020 187 complet ed [facility] ZOSTER RECOMBINANT 1 2020 187 complet ed [facility] COVID-19 (PFIZER), MRNA, LNP-S, PF, 30 MCG/0.3 ML DOSE 2 2020 208 complet ed PFR; [id number]; 1 [facility] COVID-19 (PFIZER), MRNA, LNP-S, PF, 30 MCG/0.3 ML DOSE 1 2020 208 complet ed PFR; [id number]; 1 [facility] PNEUMOCOCCAL POLYSACCHARID E [id number] 2014 33 complet ed [facility] TDAP 2014 115 complet ed Right Deltoid [facility] Results Combined list of recent chemistry, hematology and other laboratory results from Department of Defense and Veterans Affairs, ranging from 15 months to all on record, depending upon the facility. Order Name Results Value Reference Range Date Interpretation Specimen Comments Source CELIAC DISEASE PANEL (STL-MRN ) IGA [MASS/VOLU ME] IN SERUM OR PLASMA 230 mg/dL 70 - 320 06/28 Specimen Type: SERUM Comment: No serological evidence of celiac disease. tTG IgA may normalize in individuals with celiac disease who maintain a gluten-free diet. Consider HLA DQ2 and DQ8 testing to rule out celiac disease. Celiac disease is extremely rare in the absence of DQ2 or DQ8. REFERENCE RANGE: <15.0 U/mL Value Interpretat ion <15.0 Antibody not detected > or = 15.0 Antibody detected Test Performed by Cj Bass, [email or web address] [facility], [address] [place] [address] Luca Guerra M.D., Ph.D., Director of Laboratorie s , CLIA [id number] Ordering Provider: RENAY SLOAN Report Released Date/Time: May 20, 2024 02:26 PM Reporting Lab: [facility] [address] [facility] [address] Performing Lab: [address] [facility] CELIAC DISEASE PANEL (STL-MRN ) TISSUE TRANSGLUTA MINASE IGG AB [UNITS/VOL UME] IN SERUM <1.0 06/28 Specimen Type: SERUM Comment: No serological evidence of celiac disease. tTG IgA may normalize in individuals with celiac disease who maintain a gluten-free diet. Consider HLA DQ2 and DQ8 testing to rule out celiac disease. Celiac disease is extremely rare in the absence of DQ2 or DQ8. REFERENCE RANGE: <15.0 U/mL Value Interpretat ion <15.0 Antibody not detected > or = 15.0 Antibody detected Test Performed by [employer] [facility], [address] [place] [address] Luca Guerra M.D., Ph.D., Director of Laboratorie s , CLIA [id number] Ordering Provider: RENAY SLOAN Report Released Date/Time: May 20, 2024 02:26 PM Reporting Lab: [facility] [address] [facility] [address] Performing Lab: [address] [facility] FERRITIN FERRITIN [MASS/VOLU ME] IN SERUM OR PLASMA 41.05 ng/mL 22 - 275 06/28 Specimen Type: SERUM No comment entered. Ordering Provider: SUSANNE MERINO Report Released Date/Time: Jun 21, 2024 03:32 PM Reporting Lab: [facility] [address] [facility] [facility] [address] Performing Lab: [facility] [address] [facility] [address] [facility] IRON/TIB C PROFILE IRON BINDING CAPACITY [MASS/VOLU ME] IN SERUM OR PLASMA 303 ug/dL 250 - 450 06/28 Specimen Type: SERUM No comment entered. Ordering Provider: SUSANNE MERINO Report Released Date/Time: Jun 21, 2024 03:32 PM Reporting Lab: [place] [address] [facility] [address] Performing Lab: [place] [address] [facility] [place] [address] [facility] IRON/TIB C PROFILE TRANSFERRI N [MASS/VOLU ME] IN SERUM OR PLASMA 242 mg/dL 163 - 344 06/28 Specimen Type: SERUM No comment entered. Ordering Provider: SUSANNE MERINO Report Released Date/Time: Jun 21, 2024 03:32 PM Reporting Lab: [place] [address] [facility] [address] Performing Lab: [place] [address] [facility] [address] [facility] IRON/TIB C PROFILE IRON SATURATION [MASS FRACTION] IN SERUM OR PLASMA 19 20 - 50 06/28 L Specimen Type: SERUM No comment entered. Ordering Provider: SUSANNE MERINO Report Released Date/Time: Jun 21, 2024 03:32 PM Reporting Lab: [place] [address] [facility] [address] Performing Lab: [place] [address] [facility] [address] [facility] IRON/TIB C PROFILE IRON [MASS/VOLU ME] IN SERUM OR PLASMA 56 ug/dL 65 - 175 06/28 L Specimen Type: SERUM No comment entered. Ordering Provider: SUSANNE MERINO Report Released Date/Time: Jun 21, 2024 03:32 PM Reporting Lab: [place] [address] [facility] [address] Performing Lab: [facility] [address] [facility] [address] [facility] CBC LEUKOCYTES [#/VOLUME] IN BLOOD BY AUTOMATED COUNT 7.7 10*3/uL 3.6 - 11.2 06/28 Specimen Type: BLOOD No comment entered. Ordering Provider: SUSANNE MERINO Report Released Date/Time: Jun 21, 2024 03:32 PM Reporting Lab: [place] [address] [facility] [address] Performing Lab: [address] [address] [facility] CBC ERYTHROCYT ES [#/VOLUME] IN BLOOD BY AUTOMATED COUNT 4.95 10*6/uL 4.10 - 5.70 06/28 Specimen Type: BLOOD No comment entered. Ordering Provider: SUSANNE MERINO Report Released Date/Time: Jun 21, 2024 03:32 PM Reporting Lab: [place] [address] [facility] [address] Performing Lab: [address] [address] [facility] CBC HEMOGLOBIN [MASS/VOLU ME] IN BLOOD 12.0 g/dL 13.1 - 16.8 06/28 L Specimen Type: BLOOD No comment entered. Ordering Provider: SUSANNE MERINO Report Released Date/Time: Jun 21, 2024 03:32 PM Reporting Lab: [place] [address] [facility] [address] Performing Lab: [address] [address] [facility] CBC HEMATOCRIT [VOLUME FRACTION] OF BLOOD 40.5 38.2 - 48.4 06/28 Specimen Type: BLOOD No comment entered. Ordering Provider: SUSANNE MERINO Report Released Date/Time: Jun 21, 2024 03:32 PM Reporting Lab: [place] [address] [facility] [address] Performing Lab: [address] [address] [facility] CBC MCV [ENTITIC VOLUME] BY AUTOMATED COUNT 81.8 fL 80.0 - 100.0 06/28 Specimen Type: BLOOD No comment entered. Ordering Provider: SUSANNE MERINO Report Released Date/Time: Jun 21, 2024 03:32 PM Reporting Lab: [address] [address] Performing Lab: [address] [address] [facility] CBC MCH [ENTITIC MASS] BY AUTOMATED COUNT 24.2 pg 27.0 - 34.0 06/28 L Specimen Type: BLOOD No comment entered. Ordering Provider: SUSANNE MERINO Report Released Date/Time: Jun 21, 2024 03:32 PM Reporting Lab: [address] [address] Performing Lab: [address] [address] [facility] CBC MCHC [MASS/VOLU ME] BY AUTOMATED COUNT 29.6 g/dL 33.0 - 36.0 06/28 L Specimen Type: BLOOD No comment entered. Ordering Provider: SUSANNE MERINO Report Released Date/Time: Jun 21, 2024 03:32 PM Reporting Lab: [address] [address] Performing Lab: [address] [address] [facility] CBC PLATELETS [#/VOLUME] IN BLOOD BY AUTOMATED COUNT 322 10*3/uL 150 - 400 06/28 Specimen Type: BLOOD No comment entered. Ordering Provider: SUSANNE MERINO Report Released Date/Time: Jun 21, 2024 03:32 PM Reporting Lab: [address] [facility] [address] Performing Lab: [facility] [address] [facility] [place] [address] [facility] CBC PLATELET MEAN VOLUME [ENTITIC VOLUME] IN BLOOD BY AUTOMATED COUNT 10.0 fL 7.5 - 11.2 06/28 Specimen Type: BLOOD No comment entered. Ordering Provider: SUSANNE MERINO Report Released Date/Time: Jun 21, 2024 03:32 PM Reporting Lab: [place] [address] [facility] [address] Performing Lab: [place] [address] [facility] [address] [facility] CBC ERYTHROCYT E DISTRIBUTI ON WIDTH [RATIO] BY AUTOMATED COUNT 21.9 11.8 - 15.1 06/28 H Specimen Type: BLOOD No comment entered. Ordering Provider: SUSANNE MERINO Report Released Date/Time: Jun 21, 2024 03:32 PM Reporting Lab: [place] [address] [facility] [address] Performing Lab: [place] [address] [facility] [address] [facility] CBC LYMPHOCYTE S/100 LEUKOCYTES IN BLOOD BY AUTOMATED COUNT 23 06/28 Specimen Type: BLOOD No comment entered. Ordering Provider: SUSANNE MERINO Report Released Date/Time: Jun 21, 2024 03:32 PM Reporting Lab: [place] [address] [facility] [address] Performing Lab: [facility] [address] [facility] [address] [facility] CBC MONOCYTES/ 100 LEUKOCYTES IN BLOOD BY AUTOMATED COUNT 10 06/28 Specimen Type: BLOOD No comment entered. Ordering Provider: SUSANNE MERINO Report Released Date/Time: Jun 21, 2024 03:32 PM Reporting Lab: [place] [address] [facility] [address] Performing Lab: [facility] [address] [facility] [address] [facility] CBC NEUTROPHIL S/100 LEUKOCYTES IN BLOOD BY AUTOMATED COUNT 65 06/28 Specimen Type: BLOOD No comment entered. Ordering Provider: SUSANNE MERINO Report Released Date/Time: Jun 21, 2024 03:32 PM Reporting Lab: [facility] [address] [facility] [address] Performing Lab: [facility] [address] [facility] [address] [facility] CBC EOSINOPHIL S/100 LEUKOCYTES IN BLOOD BY AUTOMATED COUNT 1 06/28 Specimen Type: BLOOD No comment entered. Ordering Provider: SUSANNE MERINO Report Released Date/Time: Jun 21, 2024 03:32 PM Reporting Lab: [place] [address] [facility] [address] Performing Lab: [facility] [address] [facility] [address] [facility] CBC BASOPHILS/ 100 LEUKOCYTES IN BLOOD BY AUTOMATED COUNT 0 06/28 Specimen Type: BLOOD No comment entered. Ordering Provider: SUSANNE MERINO Report Released Date/Time: Jun 21, 2024 03:32 PM Reporting Lab: [facility] [address] [facility] [address] Performing Lab: [facility] [address] [facility] [address] [facility] CBC LYMPHOCYTE S [#/VOLUME] IN BLOOD BY AUTOMATED COUNT 1.74 10*3/uL 0.77 - 4.50 06/28 Specimen Type: BLOOD No comment entered. Ordering Provider: SUSANNE MERINO Report Released Date/Time: Jun 21, 2024 03:32 PM Reporting Lab: [facility] [address] [facility] [address] Performing Lab: [facility] [address] [facility] [address] [facility] CBC MONOCYTES [#/VOLUME] IN BLOOD BY AUTOMATED COUNT 0.78 10*3/uL 0.19 - 0.80 06/28 Specimen Type: BLOOD No comment entered. Ordering Provider: SUSANNE MERINO Report Released Date/Time: Jun 21, 2024 03:32 PM Reporting Lab: [place] [address] [place] [phone] Performing Lab: [place] [address] [place] [phone] [facility] CBC NEUTROPHIL S [#/VOLUME] IN BLOOD BY AUTOMATED COUNT 5.00 10*3/uL 2.10 - 8.00 06/28 Specimen Type: BLOOD No comment entered. Ordering Provider: SUSANNE MERINO Report Released Date/Time: Jun 21, 2024 03:32 PM Reporting Lab: [place] [address] [place] [phone] Performing Lab: [place] [address] [place] [phone] [facility] CBC EOSINOPHIL S [#/VOLUME] IN BLOOD BY AUTOMATED COUNT 0.09 10*3/uL 0.00 - 0.60 06/28 Specimen Type: BLOOD No comment entered. Ordering Provider: SUSANNE MERINO Report Released Date/Time: Jun 21, 2024 03:32 PM Reporting Lab: [place] [address] [place] [phone] Performing Lab: [place] [address] [facility] [address] [facility] CBC BASOPHILS [#/VOLUME] IN BLOOD BY AUTOMATED COUNT 0.03 10*3/uL 0.00 - 0.20 06/28 Specimen Type: BLOOD No comment entered. Ordering Provider: SUSANNE MERINO Report Released Date/Time: Jun 21, 2024 03:32 PM Reporting Lab: [place] [address] [place] [phone] Performing Lab: [address] [place] [address] [facility] GLUCOSE, BLOOD-po ct (STL) GLUCOSE [MASS/VOLU ME] IN BLOOD BY AUTOMATED TEST STRIP 95 mg/dL 72 - 99 06/13 Specimen Type: BLOOD Comment: Test Performed by: [id number] Meter #: [id number] Ordering Provider: INDIGO MARTINEZ Report Released Date/Time: Jun 13, 2024 07:37 AM Reporting Lab: [place] [address] [facility] [address] Performing Lab: [place] [address] [facility] [address] [facility] FERRITIN FERRITIN [MASS/VOLU ME] IN SERUM OR PLASMA 1052.99 ng/mL 22 - 275 05/21 H Specimen Type: SERUM Comment: FE Sat Unable to be calculated Ordering Provider: SUSANNE MERINO Report Released Date/Time: May 15, 2024 02:28 PM Reporting Lab: [place] [address] [facility] [address] Performing Lab: [place] [address] [facility] [address] [facility] IRON/TIB C PROFILE IRON BINDING CAPACITY [MASS/VOLU ME] IN SERUM OR PLASMA 309 ug/dL 250 - 450 05/21 Specimen Type: SERUM Comment: FE Sat Unable to be calculated Ordering Provider: SUSANNE MERINO Report Released Date/Time: May 15, 2024 02:28 PM Reporting Lab: [place] [address] [facility] [address] Performing Lab: [place] [address] [facility] [address] [facility] IRON/TIB C PROFILE TRANSFERRI N [MASS/VOLU ME] IN SERUM OR PLASMA 247 mg/dL 163 - 344 05/21 Specimen Type: SERUM Comment: FE Sat Unable to be calculated Ordering Provider: SUSANNE MERINO Report Released Date/Time: May 15, 2024 02:28 PM Reporting Lab: [place] [address] [place] [phone] Performing Lab: [place] [phone] IRON/TIB C PROFILE IRON SATURATION [MASS FRACTION] IN SERUM OR PLASMA 45 20 - 50 05/21 Specimen Type: SERUM Comment: FE Sat Unable to be calculated Ordering Provider: SUSANNE MERINO Report Released Date/Time: May 15, 2024 02:28 PM Reporting Lab: [place] [address] [place] [address] Performing Lab: [place] [phone] IRON/TIB C PROFILE IRON [MASS/VOLU ME] IN SERUM OR PLASMA 139 ug/dL 65 - 175 05/21 Specimen Type: SERUM Comment: FE Sat Unable to be calculated Ordering Provider: SUSANNE MERINO Report Released Date/Time: May 15, 2024 02:28 PM Reporting Lab: [place] [address] [facility] [address] Performing Lab: [place] [address] [place] [id number] CBC LEUKOCYTES [#/VOLUME] IN BLOOD BY AUTOMATED COUNT 7.7 10*3/uL 3.6 - 11.2 05/21 Specimen Type: BLOOD No comment entered. Ordering Provider: SUSANNE MERINO Report Released Date/Time: May 15, 2024 02:28 PM Reporting Lab: [place] [address] [facility] [address] Performing Lab: [address] [address] [facility] CBC ERYTHROCYT ES [#/VOLUME] IN BLOOD BY AUTOMATED COUNT 4.18 10*6/uL 4.10 - 5.70 05/21 Specimen Type: BLOOD No comment entered. Ordering Provider: SUSANNE MERINO Report Released Date/Time: May 15, 2024 02:28 PM Reporting Lab: [address] [address] Performing Lab: [address] [address] [facility] CBC HEMOGLOBIN [MASS/VOLU ME] IN BLOOD 8.9 g/dL 13.1 - 16.8 05/21 L Specimen Type: BLOOD No comment entered. Ordering Provider: SUSANNE MERINO Report Released Date/Time: May 15, 2024 02:28 PM Reporting Lab: [address] [address] Performing Lab: [address] [phone] CBC HEMATOCRIT [VOLUME FRACTION] OF BLOOD 31.9 38.2 - 48.4 05/21 L Specimen Type: BLOOD No comment entered. Ordering Provider: SUSANNE MERINO Report Released Date/Time: May 15, 2024 02:28 PM Reporting Lab: [address] [address] Performing Lab: [address] [address] [facility] CBC MCV [ENTITIC VOLUME] BY AUTOMATED COUNT 76.3 fL 80.0 - 100.0 05/21 L Specimen Type: BLOOD No comment entered. Ordering Provider: SUSANNE MERINO Report Released Date/Time: May 15, 2024 02:28 PM Reporting Lab: [address] [address] Performing Lab: [address] [address] [facility] CBC MCH [ENTITIC MASS] BY AUTOMATED COUNT 21.3 pg 27.0 - 34.0 05/21 L Specimen Type: BLOOD No comment entered. Ordering Provider: SUSANNE MERINO Report Released Date/Time: May 15, 2024 02:28 PM Reporting Lab: [address] [address] Performing Lab: [address] [address] [facility] CBC MCHC [MASS/VOLU ME] BY AUTOMATED COUNT 27.9 g/dL 33.0 - 36.0 05/21 L Specimen Type: BLOOD No comment entered. Ordering Provider: SUSANNE MERINO Report Released Date/Time: May 15, 2024 02:28 PM Reporting Lab: [address] [address] Performing Lab: [address] [address] [facility] CBC PLATELETS [#/VOLUME] IN BLOOD BY AUTOMATED COUNT 403 10*3/uL 150 - 400 05/21 H Specimen Type: BLOOD No comment entered. Ordering Provider: SUSANNE MERINO Report Released Date/Time: May 15, 2024 02:28 PM Reporting Lab: [address] [address] Performing Lab: [address] [address] [facility] CBC PLATELET MEAN VOLUME [ENTITIC VOLUME] IN BLOOD BY AUTOMATED COUNT 10.1 fL 7.5 - 11.2 05/21 Specimen Type: BLOOD No comment entered. Ordering Provider: SUSANNE MERINO Report Released Date/Time: May 15, 2024 02:28 PM Reporting Lab: [address] [address] Performing Lab: [address] [address] [facility] CBC ERYTHROCYT E DISTRIBUTI ON WIDTH [RATIO] BY AUTOMATED COUNT 21.2 11.8 - 15.1 05/21 H Specimen Type: BLOOD No comment entered. Ordering Provider: SUSANNE MERINO Report Released Date/Time: May 15, 2024 02:28 PM Reporting Lab: [facility] [address] [facility] [address] Performing Lab: [facility] [address] [facility] [address] [facility] CBC ANISOCYTOS IS [PRESENCE] IN BLOOD BY LIGHT MICROSCOPY 205/21 Specimen Type: BLOOD No comment entered. Ordering Provider: SUSANNE MERINO Report Released Date/Time: May 15, 2024 02:28 PM Reporting Lab: [facility] [address] [place] [phone] Performing Lab: [facility] [address] [facility] [address] [facility] CBC POIKILOCYT OSIS [PRESENCE] IN BLOOD BY LIGHT MICROSCOPY 105/21 Specimen Type: BLOOD No comment entered. Ordering Provider: SUSANNE MERINO Report Released Date/Time: May 15, 2024 02:28 PM Reporting Lab: [facility] [address] [facility] [address] Performing Lab: [facility] [address] [facility] [address] [facility] CBC MACROCYTES [PRESENCE] IN BLOOD BY LIGHT MICROSCOPY 105/21 Specimen Type: BLOOD No comment entered. Ordering Provider: SUSANNE MERINO Report Released Date/Time: May 15, 2024 02:28 PM Reporting Lab: [facility] [address] [facility] [address] Performing Lab: [facility] [address] [facility] [address] [facility] CBC POLYCHROMA MALU [PRESENCE] IN BLOOD BY LIGHT MICROSCOPY 105/21 Specimen Type: BLOOD No comment entered. Ordering Provider: SUSANNE MERINO Report Released Date/Time: May 15, 2024 02:28 PM Reporting Lab: [facility] [address] [facility] [address] Performing Lab: [place] [address] [facility] [address] [facility] CBC HYPOCHROMI A [PRESENCE] IN BLOOD BY LIGHT MICROSCOPY 1+ 05/21 Specimen Type: BLOOD No comment entered. Ordering Provider: SUSANNE MERINO Report Released Date/Time: May 15, 2024 02:28 PM Reporting Lab: [place] [address] [facility] [address] Performing Lab: [place] [address] [facility] [address] [facility] CBC SCHISTOCYT ES [PRESENCE] IN BLOOD BY LIGHT MICROSCOPY 1+ 05/21 Specimen Type: BLOOD No comment entered. Ordering Provider: SUSANNE MERINO Report Released Date/Time: May 15, 2024 02:28 PM Reporting Lab: [place] [address] [facility] [address] Performing Lab: [place] [address] [facility] [address] [facility] CBC PAPPENHEIM ER BODIES 0 05/21 Specimen Type: BLOOD No comment entered. Ordering Provider: SUSANNE MERINO Report Released Date/Time: May 15, 2024 02:28 PM Reporting Lab: [place] [address] [facility] [address] Performing Lab: [place] [address] [facility] [address] [facility] CBC LYMPHOCYTE S/100 LEUKOCYTES IN BLOOD BY AUTOMATED COUNT 17 05/21 Specimen Type: BLOOD No comment entered. Ordering Provider: SUSANNE MERINO Report Released Date/Time: May 15, 2024 02:28 PM Reporting Lab: [place] [address] [facility] [address] Performing Lab: [facility] [address] [facility] [address] [facility] CBC MONOCYTES/ 100 LEUKOCYTES IN BLOOD BY AUTOMATED COUNT 11 05/21 Specimen Type: BLOOD No comment entered. Ordering Provider: SUSANNE MERINO Report Released Date/Time: May 15, 2024 02:28 PM Reporting Lab: [facility] [address] [facility] [address] Performing Lab: [facility] [address] [facility] [address] [facility] CBC NEUTROPHIL S/100 LEUKOCYTES IN BLOOD BY AUTOMATED COUNT 70 05/21 Specimen Type: BLOOD No comment entered. Ordering Provider: SUSANNE MERINO Report Released Date/Time: May 15, 2024 02:28 PM Reporting Lab: [place] [address] [facility] [address] Performing Lab: [facility] [address] [facility] [address] [facility] CBC EOSINOPHIL S/100 LEUKOCYTES IN BLOOD BY AUTOMATED COUNT 1 05/21 Specimen Type: BLOOD No comment entered. Ordering Provider: SUSANNE MERINO Report Released Date/Time: May 15, 2024 02:28 PM Reporting Lab: [facility] [address] [facility] [address] Performing Lab: [facility] [address] [facility] [address] [facility] CBC BASOPHILS/ 100 LEUKOCYTES IN BLOOD BY AUTOMATED COUNT 0 05/21 Specimen Type: BLOOD No comment entered. Ordering Provider: SUSANNE MERINO Report Released Date/Time: May 15, 2024 02:28 PM Reporting Lab: [facility] [address] [facility] [address] Performing Lab: [facility] [address] [facility] [address] [facility] CBC LYMPHOCYTE S [#/VOLUME] IN BLOOD BY AUTOMATED COUNT 1.31 10*3/uL 0.77 - 4.50 05/21 Specimen Type: BLOOD No comment entered. Ordering Provider: SUSANNE MERINO Report Released Date/Time: May 15, 2024 02:28 PM Reporting Lab: [place] [address] [facility] [address] Performing Lab: [place] [address] [facility] [address] [facility] CBC MONOCYTES [#/VOLUME] IN BLOOD BY AUTOMATED COUNT 0.82 10*3/uL 0.19 - 0.80 05/21 H Specimen Type: BLOOD No comment entered. Ordering Provider: SUSANNE MERINO Report Released Date/Time: May 15, 2024 02:28 PM Reporting Lab: [place] [address] [facility] [address] Performing Lab: [address] [address] [facility] CBC NEUTROPHIL S [#/VOLUME] IN BLOOD BY AUTOMATED COUNT 5.40 10*3/uL 2.10 - 8.00 05/21 Specimen Type: BLOOD No comment entered. Ordering Provider: SUSANNE MERINO Report Released Date/Time: May 15, 2024 02:28 PM Reporting Lab: [address] [address] Performing Lab: [place] [address] [facility] [address] [facility] CBC EOSINOPHIL S [#/VOLUME] IN BLOOD BY AUTOMATED COUNT 0.09 10*3/uL 0.00 - 0.60 05/21 Specimen Type: BLOOD No comment entered. Ordering Provider: SUSANNE MERINO Report Released Date/Time: May 15, 2024 02:28 PM Reporting Lab: [place] [address] [facility] [address] Performing Lab: [address] [address] [facility] CBC BASOPHILS [#/VOLUME] IN BLOOD BY AUTOMATED COUNT 0.03 10*3/uL 0.00 - 0.20 05/21 Specimen Type: BLOOD No comment entered. Ordering Provider: SUSANNE MERINO Report Released Date/Time: May 15, 2024 02:28 PM Reporting Lab: [place] [address] [facility] [address] Performing Lab: [place] [address] [facility] [address] [facility] CBC OVALOCYTES [PRESENCE] IN BLOOD BY LIGHT MICROSCOPY 1+ 05/21 Specimen Type: BLOOD No comment entered. Ordering Provider: SUSANNE MERINO Report Released Date/Time: May 15, 2024 02:28 PM Reporting Lab: [place] [address] [facility] [address] Performing Lab: [place] [address] [facility] [address] [facility] CBC DACROCYTES [PRESENCE] IN BLOOD BY LIGHT MICROSCOPY 1+ 05/21 Specimen Type: BLOOD No comment entered. Ordering Provider: SUSANNE MERINO Report Released Date/Time: May 15, 2024 02:28 PM Reporting Lab: [place] [address] [facility] [address] Performing Lab: [place] [address] [facility] [address] [facility] CBC PLATELET ADEQUACY [PRESENCE] IN BLOOD BY LIGHT MICROSCOPY ADEQUATE 05/21 Specimen Type: BLOOD No comment entered. Ordering Provider: SUSANNE MERINO Report Released Date/Time: May 15, 2024 02:28 PM Reporting Lab: [place] [address] [facility] [address] Performing Lab: [place] [address] [facility] [address] [facility] CBC MANUAL DIFFERENTI AL PERFORMED [PRESENCE] IN BLOOD YES 05/21 Specimen Type: BLOOD No comment entered. Ordering Provider: SUSANNE MERINO Report Released Date/Time: May 15, 2024 02:28 PM Reporting Lab: [facility] [address] [facility] [address] Performing Lab: [facility] [address] [facility] [address] [facility] H.PYLORI AG (STL) HELICOBACT ER PYLORI AG [PRESENCE] IN STOOL NEGATIV E 05/21 Specimen Type: FECES No comment entered. Ordering Provider: RENAY SLOAN Report Released Date/Time: May 20, 2024 02:26 PM Reporting Lab: [facility] [address] [facility] [address] Performing Lab: [place] [address] [facility] [address] [facility] FERRITIN FERRITIN [MASS/VOLU ME] IN SERUM OR PLASMA 9.59 ng/mL 22 - 275 05/15 L Specimen Type: SERUM No comment entered. Ordering Provider: SUSANNE MERINO Report Released Date/Time: May 15, 2024 08:31 AM Reporting Lab: [facility] [address] [facility] [address] Performing Lab: [place] [address] [facility] [address] [facility] Vital Signs Combined list of inpatient and outpatient Vital Signs from Department of Defense and Veterans Affairs, ranging from 12 months to all on record, depending upon the facility. Vital Sign Value Date Comments Source SYSTOLIC BLOOD PRESSURE 145 08/01/2024 12:58:45 [facility] DIASTOLIC BLOOD PRESSURE 74 08/01/2024 12:58:45 [facility] PULSE OXIMETRY 96 08/01/2024 12:58:45 [facility] 225 08/01/2024 12:58:45 [facility] BMI 31 kg/m2 08/01/2024 12:58:45 [facility] PAIN 10 08/01/2024 12:58:45 [facility] HEIGHT 71 08/01/2024 [facility]58[facility] TEMPER[facility] 98.2 08/01/2024 12:58:45 [facility] PULSE 97 08/01/2024 12:58:45 [facility] RESPIRATION 18 08/01/2024 12:58:45 [facility] SYSTOLIC BLOOD PRESSURE 130 07/11/2024 [facility]11[facility] 76 07/11/2024 13:11:27 [facility] WEIGHT 221.1 07/11/2024 [facility]:11[facility] 31 kg/m2 07/11/2024 13:11:27 [facility] TEMPERATURE 98.8 07/11/2024 13:11:27 [facility] PULSE 94 07/11/2024 13:11[facility] 18 07/11/2024 13:11:27 [facility] SYSTOLIC BLOOD PRESSURE 156 05/15/2024 11:22:23 [facility] DIASTOLIC BLOOD PRESSURE 75 05/15/2024 11:22:23 [facility] PULSE OXIMETRY 95 05/15/2024 11:22:23 [facility] WEIGHT 221.6 05/15/2024 11:22:23 [facility] BMI 31 kg/m2 05/15/2024 11:22:23 [facility] TEMPERATURE 97.5 05/15/2024 11:22:23 [facility] PULSE 95 05/15/2024 11:22:23 [facility] RESPIRATION 20 05/15/2024 11:22:23 [facility] SYSTOLIC BLOOD PRESSURE 137 05/03/2024 13:33:[facility] [place] [facility] DIASTOLIC BLOOD PRESSURE 68 05/03/2024 13:33:[facility] PULSE OXIMETRY 95 05/03/2024 13:33:02 [facility] WEIGHT 219 05/03/2024 13:33:02 [facility] BMI 31 kg/m2 05/03/2024 13:33:[address] [facility] PAIN 8 05/03/2024 13:33:[address] [facility] [place] TEMPERATURE 98.2 05/03/2024 13:33:02 [facility] PULSE 86 05/03/2024 13:33:[address] [facility] [facility] RESPIRATION 18 05/03/2024 13:33:02 [facility] SYSTOLIC BLOOD PRESSURE 138 10/05/2023 14:26:29 [facility] DIASTOLIC BLOOD PRESSURE 62 10/05/2023 14:26:29 [facility] PULSE OXIMETRY 98 10/05/2023 14:26:29 [place] [facility] [place] [facility] WEIGHT 216 10/05/2023 14:26:29 [facility] BMI 30 kg/m2 10/05/2023 14:26:29 [facility] HEIGHT 71 10/05/2023 14:26:29 [facility] TEMPERATURE 98.1 10/05/2023 14:26:29 [facility] PULSE 86 10/05/2023 14:26:29 [facility] RESPIRATION 20 10/05/2023 14:26:29 [facility] Encounters Combined list of: 1) Encounters from Department of Veterans Affairs facilities going backup to the last 18 months, not all VA inpatient encounters are included; 2) Encounters from the Department of Defense facilities going backup to 280 months. Location Location Details Encounter Type Encounter Number Reason For Visit Attending Provider ADM Date DC Date Status Disposition Source [facility] Outpatient Encounter [id number] 04/11 [facility] Outpatient Encounter [id number] 04/20 [facility] Outpatient Encounter [id number] 04/20 [facility] Outpatient Encounter [id number] [place] 04/21 [facility] Outpatient Encounter [id number] 04/21 [facility] Outpatient Encounter [id number] 04/27 [facility] Outpatient Encounter [id number] [place] 04/27 [facility] Outpatient Encounter [id number] 05/04 [facility] OFFICE O/P EST MOD 30 MIN [id number] Diagnos is: ICD-10- CM S88.112 D Complet e traum amp at [facility] and ankl, l low leg, subs SAMUDRALA, SIRESHA 06/13 [facility] CASE MANAGEMENT [id number] Diagnos is: ICD-10- CM S88.112 D [facility] l low [facility], subs BORMANN,NI LUCHO A 06/13 [facility] PROSTHETIC TRAING 1ST ENC [id number] Diagnos is: ICD-10- CM Z46.89 Encount er for fitting and adjustm ent of oth devices RECORD,RAMY IEL E 06/13 [facility] PROSTHETIC TRAING 1ST ENC [id number] Diagnos is: ICD-10- CM Z46.89 Encount er for fitting and adjustm ent of oth devices RECORD,RAMY IEL E 06/29 [facility] Outpatient Encounter [id number] ANANTH MCKNIGHT 06/29 [facility] Outpatient Encounter [id number] 06/29 [facility] Outpatient Encounter [id number] SHERRILL ORTIZ 07/05 [facility] WHEELCHAIR MNGMENT TRAINING [id number]. 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 SONI MARQUES E 07/09 [facility] Outpatient Encounter [id number] 07/11 [facility] Outpatient Encounter [id number] 07/17 [facility] Outpatient Encounter [id number] 07/25 [facility] OFFICE O/P EST MOD 30 MIN [id number] Diagnos is: ICD-10- CM E11.9 Type 2 diabete s mellitu s without complic ations LEONE,AR MIDA A 07/25 [facility] OFF/OP CNSLTJ NEW/EST MOD 40 [id number] Diagnos is: ICD-10- CM M70.61 Trochan teric bursiti s, right hip WEHKING,PE GGY W 09/03 [facility] Outpatient Encounter [id number] 09/24 [facility] Outpatient Encounter [id number] LEONE,AR MIDA A 09/27 [facility] Outpatient Encounter [id number] TIARRAMARY BETHAMBROSIO MY R 09/29 [facility] THERAPEUTI C EXERCISES [id number] Diagnos is: ICD-10- CM M70.60 Trochan teric bursiti s, unspeci fied hip CHAD,ROSELYN HERINE A 10/03 [facility] OFFICE O/P EST MOD 30 MIN [id number] Diagnos is: ICD-10- CM E11.9 Type 2 diabete s mellitu s without complic ations LEONE,AR MIDA A 10/04 [facility] Outpatient Encounter [id number] 10/12 [facility] Out[facility] Encounter [id number] 10/23 [facility] Outpatient Encounter [id number] 10/24 [facility] Outpatient Encounter [id number] 10/25 [facility] Outpatient Encounter [id number] 10/29 [facility] Outpatient Encounter [id number] 10/31 [facility] Outpatient Encounter [id number] 12/23 [facility] Outpatient Encounter [id number] ALIZA,TIFF ANY N 12/27 [facility] CASE MANAGEMENT [id number] Diagnos is: ICD-10- CM S88.112 D Complet e traum amp at bk mooney and harsh virk leg, subs SEDRICK MEDELLIN A 01/17 [facility] PROSTHETIC TRAING 1ST ENC [id number] Diagnos is: ICD-10- CM Z46.89 Encount er for fitting and adjustm ent of oth devices RECORD,RAMY GARCIA E 01/24 [facility] Outpatient Encounter [id number] 02/14 [facility] PROSTHETIC TRAING 1ST ENC [id number] [id number] Diagnos is: ICD-10- CM Z46.89 Encount er for fitting and adjustm ent of oth devices RECORD,RAMY IEL E 03/11 [facility] Outpatient Encounter [id number] Diagnos is: ICD-10- CM R25.1 Tremor, unspeci fied LEONE,AR MIDA A 03/12 [facility] Outpatient Encounter [id number] [id number] 03/25 [facility] OFF/OP CONSLTJ NEW/EST HI 55 [id number] [id number] Diagnos is: ICD-10- CM R26.81 Unstead iness on feet AL-KATELIN, CARMEN 04/18 [facility] PROSTHETIC TRAING 1ST ENC [id number] [id number] Diagnos is: ICD-10- CM Z46.89 Encount er for fitting and adjustm ent of oth devices RECORD,RAMY IEL E 04/26 [facility] OFFICE O/P EST MOD 30 MIN [id number] [id number] Diagnos is: ICD-10- CM I10 Essenti al (primar y) hyperte nsion LEONE,AR MIDA A 05/03 [facility] OFFICE O/P NEW HI 60 MIN [id number] [id number] Diagnos is: ICD-10- CM D50.9 Iron deficie ncy anemia, unspeci fied THEVARY,VA LSAMMA 05/15 [facility] NORMAL SALINE SOLUTION INFUS [id number] [id number] Diagnos is: ICD-10- CM D50.9 Iron deficie ncy anemia, unspeci fied AGUSTIN RenéeROSANNE J 05/15 [facility] Outpatient Encounter [id number] 05/15 [facility] OFF/OP CNSLTJ NEW/EST MOD 40 [id number] [id number] Diagnos is: ICD-10- CM D50.9 Iron deficie ncy anemia, unspeci fied ED HOGUE TTHEW H 05/20 [facility] Outpatient Encounter [id number] 05/21 [facility] OFFICE O/P EST LOW 20 MIN [id number] [id number] Diagnos is: ICD-10- CM G47.00 Insomni a, unspeci fied LEONE,AR MIDA A 05/23 [facility] Outpatient Encounter [id number] [id number] 05/27 [facility] Outpatient Encounter [id number] 05/27 [facility] Outpatient Encounter [id number] 05/30 [facility] Outpatient Encounter [id number] 05/30 [facility] Outpatient Encounter [id number] [id number] 06/12 [facility] Outpatient Encounter [id number] [id number] Damion JOE 06/12 [facility] OFFICE O/P EST SF 10 MIN [id number] [id number] Diagnos is: ICD-10- CM Z01.818 Encount er for other preproc edural examina ED [place] 06/13 [facility] Outpatient Encounter [id number] 06/13 [facility] Outpatient Encounter [id number] Hoa ARZATE 06/13 [facility] OFFICE O/P EST LOW 20 MIN [id number] [id number] Diagnos is: ICD-10- CM D50.9 Iron deficie ncy anemia, unspeci CALOS Oliva 06/13 [facility] PROSTHETIC TRAING 1ST ENC [id number] [id number] Diagnos is: ICD-10- CM Z46.89 Encount er for fitting and adjustm ent of oth devices RECORD,RAMY Cordova 06/17 [facility] Outpatient Encounter [id number] [id number] GEOVANY TIWARI 06/17 [facility] Outpatient Encounter [id number] [id number] Mirta WANG 06/21 [facility] Outpatient Encounter [id number] [id number] 06/21 [facility] SYNCH AUDIO-ONLY EST MOD 30 [id number] [id number] Diagnos is: ICD-10- CM D50.9 Iron deficie ncy anemia, unspeci fied [facility]21 [facility] Outpatient Encounter [id number] [id number] Mirta WANG 06/24 [facility] Outpatient Encounter [id number] Mirta WANG 06/25 [facility] Outpatient Encounter [id number] [id number] 07/01 [facility] Outpatient Encounter [id number] [id number] 07/09 [facility] Outpatient Encounter [id number] 07/11 [facility] OFF/OP EST MAY X REQ PHY/QHP [id number] [id number] Diagnos is: ICD-10- CM E11.9 Type 2 diabete s mellitu s without complic ations [place] ORINDA K 07/11 [facility] Outpatient Encounter [id number] [id number] 07/15 [facility] Outpatient Encounter [id number] 07/30 [facility] OFF/OP CNSLTJ NEW/EST MOD 40 [id number] [id number] Diagnos is: ICD-10- CM M54.2 Cervica lgia LIU,AP RIL L 08/01 [facility] Outpatient Encounter [id number] KJELLSEN,N IKYA L 08/02 [facility] Outpatient Encounter [id number]. [id number] KJELLSEN,N IKYA L 08/07 [facility] NEEDLE EMG 1 EXTREMITY [id number] [id number] Diagnos is: ICD-10- CM M54.12 Radicul opathy, cervica l region SUFI,ASIFA N 09/05 [facility] Outpatient Encounter [id number] 09/05 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 Social History Type Response Date Comment Sourc e Tobacco smoking status NHIS VA-TOBACCO USE FORMER CIGARETTES 05/03/2024 [facility] History of tobacco use [place]-TOBACCO NEVER USED OTHER TYPE 05/03/2024 [facility] History of tobacco use [place]-TOBACCO FORMER USER 01/05/2023 [facility] History of tobacco use VA-TOBACCO FORMER USER 11/03/2021 [facility] History of tobacco use VA-TOBACCO FORMER USER 10/19/2020 [facility] History of tobacco use VA-TOBACCO FORMER USER 01/09/2019 [facility] History of tobacco use VA-TOBACCO FORMER USER 01/03/2018 [facility] History of tobacco use QUIT TOBACCO >12 MO and <7 YRS AGO 01/10/2017 [facility] History of tobacco use QUIT TOBACCO >12 MO and <7 YRS AGO 09/28/2016 [facility] History of tobacco use QUIT TOBACCO >12 MO and <7 YRS AGO 08/29/2016 [facility] History of tobacco use QUIT TOBACCO >12 MO and <7 YRS AGO 11/19/2015 [facility] History of tobacco use QUIT TOBACCO >12 MO and <7 YRS AGO 11/24/2014 [facility] History of tobacco use QUIT TOBACCO >7 YEARS AGO 11/14/2013 [facility] History of tobacco use QUIT TOBACCO >12 MO and <7 YRS AGO 07/29/2013 [facility] Plan of Care List of future care activities from Department of Veterans Affairs facilities. Additional future care activities may be listed in the Assessment and Plan section. Date/Time Care Activity Care Activity Detail Facili ty 09/12/2024 AMBULATORY - NONE [facility] NONE [facility]
--- OUTSIDE RECORDS SUMMARY | 2024-09-12 07:21 | XMS_ITS | Encounter Summary ---
Author Name [facility] [place] Organization [facility] [place] Address [address] [place] [address] Care Team Providers Care Coordinator Of Rehabilitation Services Name Role Phone NANO LEONE Primary Care [...] PART A Aug 26, 1999 PART A [id number] ROSSI SERRANO PATIENT MEDICARE (WNR) MEDICARE (M) PART A Aug 26, 1999 PART A [id number] [phone] ZACHROSSI GAGE PATIENT Selected Encounter This section includes the information on record at [place] for the Encounter. Date/Time Encounter Type Encounter Description Reason Provider Source August 02, 2024 02:23 PM Outpatient Encounter COMMUNITY CARE CONSULT JANI JUÁREZ Encounter Template Text not used by [place] Plan of Treatment: Future Appointments (+ 6 [...] 20 appointments. The data comes from all [facility]. Appointment Date/Time Appointment Type Appointme nt Facility Name Sep 05, 2024 01:00 PM AMBULATORY - REHAB MEDICIN E [facility] Sep 05, 2024 02:30 PM AMBULATORY - NONE [facility] Sep 09, 2024 01:00 PM AMBULATORY - REHAB MEDICIN E [facility] Sep 11, 2024 11:00 AM AMBULATORY - REHAB MEDICIN E [facility] Sep 12, 2024 07:30 AM AMBULATORY - NONE [facility] Sep 12, 2024 07:40 AM AMBULATORY - NONE [facility] Oct 11, 2024 03:30 PM AMBULATORY - REHAB MEDICIN E [facility] Oct 18, 2024 02:00 PM AMBULATORY - MEDICINE [facility] Oct 25, 2024 03:00 PM AMBULATORY - RE[facility] MEDICIN E [facility] Oct 31, 2024 02:00 PM AMBULATORY - MEDICINE [facility] Active, Pending, and Scheduled Orders This section includes a listing of several types of active, pending, and scheduled orders, including clinic medications orders, diagnostic test orders, procedure orders and consult orders; where the start date of the order is 45 days before the date of the Encounter or 45 days after the date of theEncounter. The data comes from all [facility]. Test Date/Time Test Type Test Details Facility Name August 01, 2024 02:06 PM Consult Order COMMUNITY CARE-CT [facility] Cons Grinding Room Supervisor's Choice [facility] August 01, 2024 02:07 PM Consult Order COMMUNITY CARE-CT ST[facility] Cons Grinding Room Supervisor's [facility] Social History: Smoking Status (Most current) and Tobacco Use (All prior to encounter date) This section includes the most current, and the historical, smoking and tobacco- related health factors from the [place] facility where the Encounter took place. Current Smoking Status This section includes the most current smoking, or tobacco-related health factor, from the [place] facility where the Encounter took place. Date/Time Current Smoking Status Comment Facil ity Jan 03, 2018 10:12 AM VA-TOBACCO FORMER USER [facility] Tobacco Use History This section includes a history of the smoking, or tobacco-related health factors, that were collected on or before the date of the Encounter. The data comes from the [place] facility where the Encounter took place. Date/Time Smoking Status/Tobacco Use Comment F acmiguel a Jan 03, 2018 10:12 AM [place]-TOBACCO QUIT 5 TO < 15 YRS [facility] Encounter Notes: All associated encounter notes This section contains the clinical notes associated to the Encounter. Date/Time Encounter Note(s) Provider Source August 02, 2024 02:23 PM NONVA NOTE: LOCAL TITLE: COMMUNITY CARE-CARE COORDINATION PLAN NOTE [address] [facility] STANDARD TITLE: NONVA NOTE DATE OF NOTE: AUGUST 02, 2024@14:23 ENTRY DATE: AUGUST 02, 2024@14:23:50 AUTHOR: JANI JUÁREZ EXP COSIGNER: URGENCY: STATUS: COMPLETED Community Care Consult: COMMUNITY CARE-CT [facility] 08/01/2024 Consult No: [id number] [facility] Referral #: [id number] Chief Complaint: neck pain, tingling in the hands, episode of numbness left arm Patient Admitted? No Level of Care Coordination Moderate Care Coordination was determined from: Chart Review Facility Community Care Office Contact Care Coordination Point of Contact: Jani Juárez RN Services: Basic Care Coordination Services Monitoring and coordination of Rehab/PT Services Direct communication to referring provider Care management, if appropriate Plan: Send to [facility]. Fax authorization to provider. Follow up with provider or for scheduling update. Follow up with after appointment. Retrieve records for visit. Review imaging report, document any significant finding. Send to scanner. Request disc of images. Assess if any other care is needed. /dayan/ JANI JUÁREZ Registered Nurse Signed: 08/02/2024 14:32 JANI JUÁREZ [facility]
--- OUTSIDE RECORDS SUMMARY | 2024-09-12 07:21 | XMS_ITS | Encounter Summary ---
Author Name [facility] [place] [facility] [place] Address [address] [place] [address] Care Team Providers Care Aircraft Stress Analyst Name Role Phone NANO LEONE Primary Care [...] PART A Aug 26, 1999 PART A [id number] ROSSI SERARNO RRChetan PATIENT MEDICARE (WNR) MEDICARE (M) PART A Aug 26, 1999 PART A [id number] ROSSI SERRANO PATIENT Selected Encounter This section includes the information on record at [place] for the Encounter. Date/Time Encounter Type Encounter Description Reason Provider Source Sep 05, 2024 01:00 PM NEEDLE EMG 1 EXTREMITY EMG - ELECTROMYOGRAM ICD-10-CM M54.12 Radiculopathy, cervical region SUFI,ASIFA N IHE Encounter Template Text not used by [place] Assessments - Encounter Diagnoses This section includes the primary and secondary diagnoses documented for the Encounter. Date/Time Primary/Secondary Diagnosis Diagnosis Name Provider Source Sep 05, 2024 03:55 PM PRIMARY Radiculopathy, cervical region SUFI,ASIFA N [facility] Plan of Treatment: Future Appointments (+ 6 months) and Future Tests (+/- 45 days) The Plan of Treatment section includes future care activities for the patient from all [place] [facility] [place] This section includes future appointments and future orders which are active, pending or scheduled. Future Appointments This section includes appointments that were scheduled to occur 6 months from the date of the Encounter, up to a maximum of 20 appointments. The data comes from all [facility]. Appointment Date/Time Appointment Type Appointme nt Facility Name Sep 09, 2024 01:00 PM AMBULATORY - REHAB MEDICIN E [facility] Sep 11, 2024 11:00 AM [facility] Sep 12, 2024 07:30 AM AMBULATORY - NONE [facility] Sep 12, 2024 07:40 AM AMBULATORY - NONE [facility] Oct 11, 2024 03:30 PM [facility] Oct 18, 2024 02:00 PM AMBULATORY - MEDICINE [facility] Oct 25, 2024 03:00 PM [facility] Oct 31, 2024 02:00 PM AMBULATORY - MEDICINE [facility] Active, Pending, and Scheduled Orders This section includes a listing of several types of active, pending, and scheduled orders, including clinic medications orders, diagnostic test orders, procedure orders and consult orders; where the start date of the order is 45 days before the date of the Encounter or 45 days after the date of theEncounter. The data comes from all [facility]. Test Date/Time Test Type Test Details Facility Name August 01, 2024 02:06 PM Consult Order COMMUNITY CARE-CT [facility] Cons Screen Examiner's Choice [facility] August 01, 2024 02:07 PM Consult Order COMMUNITY CARE-CT ST[facility] Cons Screen Examiner's [facility] Encounter Notes: All associated encounter notes This section contains the clinical notes associated to the Encounter. Date/Time Encounter Note(s) Provider Source Sep 05, 2024 03:52 PM NEUROLOGY DIAGNOSTIC STUDY REPORT: LOCAL TITLE: EMG REPORT NOTE ST STANDARD TITLE: NEUROLOGY DIAGNOSTIC STUDY REPORT DATE OF NOTE: SEP 05, 2024@15:52 ENTRY DATE: SEP 05, 2024@15:52:26 AUTHOR: MARJAN EVANS EXP COSIGNER: URGENCY: STATUS: COMPLETED EMG data for the Nerve Conduction study has been completed Aug. Review the full report/interpretation located in [employer]. /dayan/ MARJAN EVANS M.D. Staff Fabrication Department Supervisor Signed: 09/05/2024 15:55 MARJAN EVANS [facility] Sep 05, 2024 02:32 PM ELECTROPHYSIOLOGY DIAGNOSTIC STUDY REPORT: LOCAL TITLE: EMG PROCEDURE REPORT STL STANDARD TITLE: ELECTROPHYSIOLOGY DIAGNOSTIC STUDY REPORT DATE OF NOTE: SEP 05, 2024@14:32:48 ENTRY DATE: SEP 05, 2024@14:32:48 AUTHOR: CLINICAL,DEVICE PRO EXP COSIGNER: URGENCY: STATUS: COMPLETED PROCEDURE SUMMARY CODE: Machine Resulted DATE/TIME PERFORMED: SEP 05, 2024@13:28:1 DOCUMENT IN VISTA IMAGING SEE FULL REPORT IN VISTA IMAGING SIGNATURE NOT REQUIRED SEE SIGNATURE IN VISTA IMAGING Administrative Closure: 09/05/2024 by: CLINICAL,DEVICE PROXY SERVICE CLINICAL,DEVICE PROXY SERVICE [facility]
[2024-09-12 08:30] VITALS: BP 136/76; PULSE 86; RESP 14; TEMP 36.6; O2SAT 96
[2024-09-12 08:52] LABS: Mean Platelet Volume 9.3 fl (7.4-10.4); Platelet Count Result 244 k/mm3 (150-375)
[2024-09-12 09:02] LABS: Prothrombin Time 13.6 Seconds (11.1-14.7)
[2024-09-12 11:39] VITALS: BP 107/85; PULSE 86; RESP 16; O2SAT 96
[2024-09-12 12:39] VITALS: BP 118/84; PULSE 82; RESP 18
[2024-09-12 13:00] VITALS: BP 115/66; PULSE 81; RESP 16; O2SAT 93
--- NOTE | 2024-09-12 13:50 | SUR.PHASEII ---
Dr. Pinto at bedside speaking with family and patient. MD states patient is okay to discharge at this time.
== END 2024-09-12 13:56 | disposition home or self-care (01) ==
PROVIDERS: Visit Provider Radiology Diagnostic Radiology
DX: Z01.818 Encounter for other preprocedural examination (principal)
CPT/HCPCS: 36415; 62305; 85049; 85610